=== PATIENT | female | born 2000 | race Caucasian/White ===

== ENCOUNTER 2018-01-26 12:43 | Emergency (ER) | payer OTHER, SELFPAY ==
[2018-01-26 12:44] VITALS: BP 117/75; PULSE 90; RESP 16; TEMP 37.1; O2SAT 99; BMI 21.3
--- NOTE | 2018-01-26 13:30 | CT_ITS ---
STUDY: CT ABDOMEN AND PELVIS WITH CONTRAST REASON FOR EXAM: Female, 17 years old. Blood in the stool and abdominal pain RADIATION DOSAGE (If Supplied By Facility): CTDIvol = ( 7.64 ) mGy, DLP = ( 254.90 ) mGycm TECHNIQUE: Transaxial images were obtained from the dome of the diaphragm to the symphysis pubis without oral contrast. 75 ml of Isovue 300 contrast was administered. Sagittal and coronal images were reconstructed. Individualized dose optimization techniques were used for this CT. COMPARISON: None. FINDINGS: No evidence for lung consolidation Liver and spleen are within normal limits. The pancreas appear unremarkable. Adrenal glands appear unremarkable. Gallbladder is within normal limits. Adrenal glands are within normal limits. Prominent bilateral renal collecting systems seen. The bowel gas pattern is nonobstructive. No definite evidence for acute appendicitis. However appendix is not definitively visualized Uterus appears slightly prominent. Trace amount of free fluid in the pelvis likely present. No evidence for acute lumbar spine fractures. The abdominal aorta is within normal limits. No retroperitoneal adenopathy. CT/Abdomen/Pelvis WITH Contrast IMPRESSION: No evidence for small bowel obstruction. No evidence for acute appendicitis Trace amount of free fluid in the pelvis was slightly prominent uterus. Prominent renal pelvis which can be assessed with sonography as clinically deemed essential. Electronically Signed: Rashard Couch, at 15:30 EST Tel , Service support ,
[2018-01-26] MEDS: 0.9% Normal Saline 1,000 ML 125 ML IV (13:53)
[2018-01-26 14:02] LABS: Absolute Lymphocyte Count 3.04 X10^3/ul (0.83-4.51); Absolute Neutrophil Count 4.9 X10^3/uL (2.0-7.7); Basophil# 0.03 X10^3/uL; Basophil% 0.3 % (0-1); Eosinophil# 0.07 X10^3/uL; Eosinophils% 0.8 % (0-5); Hematocrit 46.5 % (37-47); Hemoglobin 16.1 g/dl (12.0-15.0); Lymphocyte # 3.04 X10^3/ul (4.0); Lymphocyte % 35.2 % (19-41); Mean Corp Hgb Conc 34.6 g/gl (32-36); Mean Corpuscular Hgb 30.4 pg (27.0-32.0); Mean Corpuscular Volume 87.9 fL (81-99); Mean Platelet Vol. 8.9 fl (6.2-12.0); Monocyte# 0.55 X10^3/uL; Monocyte% 6.4 % (0-10); Neutrophil # 4.94 X10^3/uL (2.7-7.7); Neutrophil % 57.2 % (47-70); POSITIVE COUNT NO; POSITIVE DIFFERENTIAL NO; POSITIVE MORPHOLOGY NO; Platelet Count 323 K/mm3 (150-450); RBC Distribution Width CV 13.1 % (11.6-14.6); RBC Distribution Width SD 42.1 fl (35.1-43.9); Red Blood Count 5.29 M/mm3 (4.2-5.4); White Blood Count 8.6 K/mm3 (4.4-11.0)
[2018-01-26 14:12] LABS: Bacteria 0 SEEN /hpf (None Seen); Mucous, Urine 0 SEEN /hpf (<or=2+); Red Blood Cells-Urine 0 SEEN /hpf (0-5); White Blood Cells 0 SEEN /hpf (0-5)
[2018-01-26 14:14] LABS: Color, Urine Yellow (Yellow); Glucose, Dipstick Normal (Normal); Ketone-Dipstick Negative (Negative); Leukocyte Esterase-Dipstick Negative /ul (Negative); Nitrite-Dipstick Negative (Negative); Occult Blood-Urine Negative /ul (Negative); Protein-Dipstick Negative (Negative); Specific Gravity, Urine 1.005 (1.002-1.030); Urine Bilirubin Dipstick Negative (Negative); Urine Clarity Clear (Clear); Urine Urobilinogen Normal (Normal)
[2018-01-26 14:18] LABS: AST(SGOT) 22 U/L (15-37); Alanine Aminotransfer ALT/SGPT 28 U/L (13-56); Albumin, Serum 4.4 g/dL (3.2-5.0); Alkaline Phosphatase 63 U/L (45-117); Anion Gap 9 (5-15); BUN 7 mg/dL (7-18); Calcium,Total 9.6 mg/dL (8.5-10.1); Chloride 105 mmol/L (98-107); Creatinine, Serum 0.78 mg/dL (0.55-1.02); EST Glomerular Filtration Rate 100 mL/min (>60); Est Glom Filt Rate - Afr Amer 121 mL/min (>60); Estimated Creatinine Clearance 95.96 ml/min; Globulin 4.3 g/dL (2.2-4.2); Glucose 81 mg/dL (74-106); Potassium 3.6 mmol/L (3.5-5.1); Protein, Total 8.7 g/dL (6.4-8.2); Sodium Level 141 mmol/L (136-145)
[2018-01-26 14:22] LABS: Squamous Epithelial Cells - UA 0-5 SEEN /hpf (5-10)
[2018-01-26 14:24] LABS: Pregnancy, Serum, hCG Quali. NEGATIVE Negative (0-9 Nonpreg)
[2018-01-26 15:11] LABS: Lactic Acid 1.1 mmol/L (0.4-2.0)
[2018-01-26 15:22] VITALS: BP 121/74; PULSE 72; RESP 16; O2SAT 100
--- NOTE | 2018-01-26 15:49 | ED.VISSUMM ---
- ER Visit Summary Date of Service: 01/26/18 Chief Complaint: [Abdominal pain and rectal bleeding] History of Present Illness: The patient is a 17 F [presents to the emergency department with symptoms of abdominal pain that started yesterday. Patient states that she went into the restroom to have a bowel movement and felt very sweaty and felt like she might pass out so she laid herself on the floor and she is not sure if she passed out. Patient began feeling better therefore she was able to get up however an hour or so later patient started having abdominal cramping again and had several episodes of diarrhea. This morning patient woke up and she continues to have intermittent abdominal pain and cramping and had 2 episodes of small amount of bright red blood per rectum. Patient has had hemorrhoid before. She denies any fever. She denies any vomiting although she has had some mild nausea. Patient is currently on her menstrual period. She denies any urinary symptoms.] There is no family history of inflammatory bowel disease. Physical Examination: [HEENT-PERRLA, EOMI. Cranial nerves II through XII grossly intact. TMs clear. Mucous membranes moist. No adenopathy. Cardiovascular-regular rate and rhythm without murmur or ectopy Lungs-clear to auscultation, chest wall stable without crepitus or subcu emphysema Abdomen-normoactive bowel sounds, soft, nontender, no rebound or rigidity, no peritoneal signs. Rectal exam-no fissures or hemorrhoids noted. No masses noted in the rectal vault. Stool was brown however it was Hemoccult positive. Extremities-intact ?4, normal range of motion, normal pulses, atraumatic] Test Results: [CBC with differential obtained showed a white blood cell count of 8.6, hemoglobin 16, hematocrit 46, platelets 323. Chemistries were normal. Liver enzymes were normal. Urinalysis was normal. HCG was negative. CT scan of the abdomen pelvis with IV and p.o. contrast obtained showed no evidence of small bowel obstruction no evidence for acute appendicitis trace amount of free fluid in the pelvis was slightly prominent uterus, prominent renal pelvis which can be assessed with sonography as clinically deemed essential.] Emergency Department Course and Treatment: [And received normal saline while in the emergency department and did not require any pain medication. Patient has not had any more diarrhea and really does not have much in way of abdominal discomfort at this time. I discussed with family that cannot completely rule out inflammatory bowel disease such as Crohn's or loss of colitis and that if her symptoms persist she may require further evaluation with colonoscopy. 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 Patient advised to follow-up with gastroenterology on-call. Patient to return if worsening pain, fever, persistent bleeding, or condition should worsen in any way.] Impression: [Abdominal pain Lower GI bleed-stable] Vasovagal syncope This note was generated with FRUCT dictation software. It may contain incorrect words, spelling, and punctuation that were not noted in review of the chart prior to signing ED Disposition - Plan for ED Patient: Chief Complaint: GI Bleed Referrals: Duglas Nayak MD [Primary Care Provider] -
--- NOTE | 2018-01-26 15:54 | ED.DCSUM_ITS ---
- ER Visit Summary Date of Service: 01/26/18 Chief Complaint: [Abdominal pain and rectal bleeding] History of Present Illness: The patient is a 17 F [presents to the emergency department with symptoms of abdominal pain that started yesterday. Patient states that she went into the restroom to have a bowel movement and felt very sweaty and felt like she might pass out so she laid herself on the floor and she is not sure if she passed out. Patient began feeling better therefore she was able to get up however an hour or so later patient started having abdominal cramping again and had several episodes of diarrhea. This morning patient woke up and she continues to have intermittent abdominal pain and cramping and had 2 episodes of small amount of bright red blood per rectum. Patient has had hemorrhoid before. She denies any fever. She denies any vomiting although she has had some mild nausea. Patient is currently on her menstrual period. She denies any urinary symptoms.] There is no family history of inflammatory bowel disease. Physical Examination: [HEENT-PERRLA, EOMI. Cranial nerves II through XII grossly intact. TMs clear. Mucous membranes moist. No adenopathy. Cardiovascular-regular rate and rhythm without murmur or ectopy Lungs-clear to auscultation, chest wall stable without crepitus or subcu emphysema Abdomen-normoactive bowel sounds, soft, nontender, no rebound or rigidity, no peritoneal signs. Rectal exam-no fissures or hemorrhoids noted. No masses noted in the rectal vault. Stool was brown however it was Hemoccult positive. Extremities-intact ?4, normal range of motion, normal pulses, atraumatic] Test Results: [CBC with differential obtained showed a white blood cell count of 8.6, hemoglobin 16, hematocrit 46, platelets 323. Chemistries were normal. Liver enzymes were normal. Urinalysis was normal. HCG was negative. CT scan of the abdomen pelvis with IV and p.o. contrast obtained showed no evidence of small bowel obstruction no evidence for acute appendicitis trace amount of free fluid in the pelvis was slightly prominent uterus, prominent renal pelvis which can be assessed with sonography as clinically deemed essential.] Emergency Department Course and Treatment: [And received normal saline while in the emergency department and did not require any pain medication. Patient has not had any more diarrhea and really does not have much in way of abdominal discomfort at this time. I discussed with family that cannot completely rule out inflammatory bowel disease such as Crohn's or loss of colitis and that if her symptoms persist she may require further evaluation with colonoscopy. 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 Patient advised to follow -up with gastroenterology on-call. Patient to return if worsening pain, fever, persistent bleeding, or condition should worsen in any way.] Impression: [Abdominal pain Lower GI bleed-stable] Vasovagal syncope This note was generated with Snupps dictation software. It may contain incorrect words, spelling, and punctuation that were not noted in review of the chart prior to signing ED Disposition - Plan for ED Patient: Chief Complaint: GI Bleed Referrals: Duglas Nayak MD [Primary Care Provider] -
--- NOTE | 2018-01-26 15:54 | ED.DEP ---
ED Disposition - Plan for ED Patient: Chief Complaint: GI Bleed Instructions: ED Hematochezia Stable, ED Abdominal Pain Unkn Cause, ED Syncope Vasovagal Referrals: Duglas Nayak MD [Primary Care Provider] - Johnny Burton MD [STAFF PHYSICIAN] - 3-5 Days
== END 2018-01-26 16:06 | disposition home or self-care (01) ==
PROVIDERS: Emergency Provider Emergency Medicine; Family Provider Family Medicine; PCP Family Medicine
DX: K92.1 Melena (principal); R55 Syncope and collapse; R10.9 Unspecified abdominal pain
CPT/HCPCS: 74177; 80053; 81001; 82274; 83605; 84703; 85025; 96360; 96361; 99283; J7030; Q9967; A4216

== ENCOUNTER → 2019-06-06 | Outpatient (CLI) | payer SELFPAY ==
[2019-05-21 16:21] VITALS: BMI 21.2
== END | disposition home or self-care (01) ==
LOC: MFPLAB 13:36
PROVIDERS: Family Provider Family Medicine; PCP Family Medicine; Visit Provider Family Medicine
DX: R19.7 Diarrhea, unspecified (principal)
CPT/HCPCS: 87506

== ENCOUNTER 2019-06-07 18:40 | Emergency (ER) | payer OTHER, SELFPAY ==
[2019-05-21 16:21] VITALS: BMI 21.2
[2019-06-07 18:41] VITALS: BP 106/98; PULSE 105; RESP 18; TEMP 36.8; O2SAT 98; BMI 20.7
--- NOTE | 2019-06-07 19:09 | CT_ITS ---
STUDY: CT ABDOMEN AND PELVIS WITH CONTRAST REASON FOR EXAM: Female, 19 years old. Diarrhea. Bloody stools. RADIATION DOSAGE (If Supplied By Facility): CTDIvol = ( 9.76 ) mGy, DLP = ( 331.99 ) mGycm TECHNIQUE: Transaxial images were obtained from the dome of the diaphragm to the symphysis pubis without oral contrast. 100ML IV/Oral Isovue 300 was administered. Sagittal and coronal images were reconstructed. Individualized dose optimization techniques were used for this CT. COMPARISON: January 26, 2018. FINDINGS: Lung bases: No focal airspace opacity. Nonspecific left paraspinal soft tissue mass measuring 3.8 cm x 7.6 cm x 1.4 cm (axial image 20 series 2 and coronal image 61 series 601). Region of interest measures approximately 42 Hounsfield units. Heart: Unremarkable. Liver: Hepatomegaly measuring up to 20 cm. Gallbladder/biliary ducts: Unremarkable. Pancreas: Unremarkable. Spleen: Borderline splenomegaly measuring up to 12.7 cm. Adrenal glands: Unremarkable. Kidneys/ureters/bladder: Mild bilateral ureteral distention/extrarenal pelvis. Bilateral symmetric renal parenchymal contrast enhancement. Mildly distended urinary bladder without wall abnormality. Uterus/adnexa/prostate: Distended endometrial canal. Physiologic appearance of the adnexal regions. Large bowel/small bowel: Diffuse moderate/severe colonic wall thickening. No perforation. No pneumatosis. No obstruction. Appendix: No secondary signs of appendicitis. Appendix not visualized. Gastroesophageal junction/stomach: Unremarkable. Retroperitoneum/lymph nodes: No intra-abdominal free air. No ascites. [place] lymph nodes. Vascular: Normal. Osseous structures: No acute process. Subcutaneous/soft tissues: No acute process. CT/Abdomen/Pelvis WITH Contrast IMPRESSION: Acute pancolitis (exclude C. 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 : The above information has been verbally conveyed by Devonte Beltran DO to Demond Roberts/ [phone], on 06/07/2019 21:40:54 (ET). Electronically Signed: Devonte Beltran DO at 21:26 EDT Tel , Service support ,
[2019-06-07] MEDS: 0.9% Normal Saline 1,000 ML 1000 ML IV (19:20)
[2019-06-07 19:34] LABS: Absolute Lymphocyte Count 2.04 X10^3/ul (0.83-4.51); Absolute Neutrophil Count 1.5 X10^3/uL (2.0-7.7); Basophil# 0.04 X10^3/uL; Basophil% 0.8 % (0-1); Eosinophil# 0.09 X10^3/uL; Eosinophils% 1.9 % (0-5); Hematocrit 41.6 % (37-47); Hemoglobin 14.8 g/dl (12.0-15.0); Lymphocyte # 2.04 X10^3/ul (4.0); Mean Corp Hgb Conc 35.6 g/gl (32-36); Mean Corpuscular Hgb 29.5 pg (27.0-32.0); Mean Platelet Vol. 8.8 fl (6.2-12.0); Monocyte# 1.11 X10^3/uL; Monocyte% 23.4 % (0-10); Neutrophil # 1.45 X10^3/uL (2.7-7.7); Neutrophil % 30.7 % (47-70); Platelet Count 307 K/mm3 (150-450); RBC Distribution Width CV 12.8 % (11.6-14.6); RBC Distribution Width SD 38.5 fl (35.1-43.9); Red Blood Count 5.01 M/mm3 (4.2-5.4); White Blood Count 4.7 K/mm3 (4.4-11.0)
[2019-06-07 19:35] LABS: POSITIVE COUNT NO; POSITIVE DIFFERENTIAL NO; POSITIVE MORPHOLOGY NO
[2019-06-07 19:51] LABS: ALB/GLOB Ratio 0.8 RATIO (0.9-2.4); AST(SGOT) 15 U/L (15-37); Alanine Aminotransfer ALT/SGPT 14 U/L (13-56); Albumin, Serum 3.4 g/dL (3.2-5.0); Alkaline Phosphatase 60 U/L (45-117); Anion Gap 5 (5-15); BUN 6 mg/dL (7-18); BUN/Creat Ratio 7.3 RATIO (10-20); Calcium,Total 8.7 mg/dL (8.5-10.1); Chloride 106 mmol/L (98-107); Creatinine, Serum 0.82 mg/dL (0.55-1.02); EST Glomerular Filtration Rate 94 mL/min (>60); Est Glom Filt Rate - Afr Amer 113 mL/min (>60); Estimated Creatinine Clearance 89.77 ml/min; Glucose 128 mg/dL (74-106); Potassium 3.3 mmol/L (3.5-5.1); Protein, Total 7.4 g/dL (6.4-8.2); Sodium Level 139 mmol/L (136-145)
--- NOTE | 2019-06-07 20:03 | ED.VISSUMM ---
- ER Visit Summary Date of Service: 06/07/19 Chief Complaint: Bloody diarrhea History of Present Illness: The patient is a 19 F who presents the emergency department with bloody diarrhea. Patient states that she has had diarrhea for about 5 days total. On (3 days ago) she developed blood in the stool. She notes intermittent crampy abdominal pain. . She has had the symptoms on and off since 2018. She has a appointment at the end of May with Dr. Burton from gastroenterology. She notes that she has had 7 episodes of diarrhea on average per day. She denies any rectal pain. She denies any fevers. There is no familial history of ulcerative colitis Crohn's etc. She takes an oral control pill. She is a non-smoker. Mother states she did have a surgery when she was first born for a blockage in her abdomen but cannot tell me anything more about that. No recent antibiotics. She dropped a stool specimen offered her primary care physician's office. This was run for enteric pathogens and was negative. Mom denies a familial history of inflammatory bowel disease Physical Examination: Afebrile vital signs stable Gen: Well-nourished well-developed Head: Normocephalic atraumatic Eyes: Perrl EOMI ENT: TMs clear no rhinorrhea moist mucous membranes Neck: Supple no lymphadenopathy no JVD nontender CVS: Regular rate rhythm no murmurs normal S1-S2 Respiratory: No distress clear to auscultation bilaterally chest nontender Abdomen: Soft nontender nondistended normal bowel sounds no masses Back: Nontender Extremity: Nontender no edema Skin: Normal color no rash Neuro: alert orientated ?3 CN II-XII intact normal strength sensation reflexes gait cerebellar Psych: Normal affect normal mood Test Results: CBC was normal. Potassium 3.3. Glucose 128. Liver enzymes normal. Stool cultures were not ordered as they have already been performed. CT down pelvis obtained. Demonstrated pancolitis. Incidentally there is also a nonspecific left paraspinal soft tissue mass measuring 3.8 cm x 7.6 cm x 1.4 cm. This is undifferentiated and will require MRI follow-up Emergency Department Course and Treatment: First for the pancolitis I did speak with Dr. Burton who is happy to see the patient on Sunday (this is Sunday night). He recommends patient begin mesolamine 2.4 grams Daily as well as a brief course of Cipro and Flagyl for 5 days. Secondly for the soft tissue mass this was discussed with her primary care physician's on-call doctor Dr. Hobbs. They will help coordinate a follow-up MRI. Impression: 1. Pancolitis 2. Undifferentiated left paraspinal left posterior mediastinal soft tissue mass This note was generated with NextMedium dictation software. It may contain incorrect words, spelling, and punctuation that were not noted in review of the chart prior to signing ED Disposition - Plan for ED Patient: Disposition: Home or Assisted Living Instructions: Ulcerative Colitis Prescriptions: Ciprofloxacin [Cipro] 500 mg PO BID #10 tab Transmission Status: Pending to [facility] metroNIDAZOLE [Flagyl] 250 mg PO Q8H #15 tab Transmission Status: P[facility] to [facility] Mesalamine 2.4 gm PO DAILY #30 tablet.dr Transmission Status: Pending to [facility] Ondansetron [Zofran Odt] 4 mg PO Q6H PRN PRN #10 tab PRN Reason: Nausea Transmission Status: [facility] Referrals: Duglas Nayak MD [Primary Care Provider] - (call to help arrange MRI for the soft tissue mass) Johnny Burton MD [NON-STAFF] - (call Sunday morning and let them know you need to be seen on Sunday per Dr. Burton) Additional Instructions: Your prescriptions were transmitted to [facility] and should be available for pickup tomorrow
[2019-06-07 20:08] LABS: Internal QC Validated? YES +Cl - CLEAR BKGD; Pregnancy, Serum, hCG Quali. NEGATIVE Negative
[2019-06-07 21:56] VITALS: BP 111/65; PULSE 89; RESP 14; O2SAT 99
[2019-06-07] MEDS: Mesalamine 1.2 GM Tablet 2.4 GM PO (22:37)
[2019-06-07 22:38] VITALS: RESP 16
== END 2019-06-07 22:38 | disposition home or self-care (01) ==
PROVIDERS: Emergency Provider Emergency Medicine; Family Provider Family Medicine; PCP Family Medicine
DX: K51.00 Ulcerative (chronic) pancolitis without complications (principal); R22.2 Localized swelling, mass and lump, trunk
CPT/HCPCS: 74177; 80053; 84703; 85025; 96360; 96361; 99283; J7030; Q9967

== ENCOUNTER → 2019-06-24 | Outpatient (CLI) | payer OTHER, SELFPAY ==
[2019-06-07 18:41] VITALS: BMI 20.7
--- NOTE | 2019-06-24 13:00 | MRI_ITS ---
HISTORY: Mediastinal mass. Abnormal CT. Technique: Sagittal T2, coronal T1, coronal gradient, axial T1, axial T2, axial T2 weighted, coronal T1, and axial and coronal T1 post gadolinium fat-sat series were obtained. 10 series. [address] scan of the abdomen and pelvis most recently is June 07, 2019. Study before that is January 26, 2018. Thoracic spine x-rays are available from March 30, 2015. Findings: Within the posterior medial aspect of the left hemithorax is the mass that was discussed and demonstrated on the CT scans. This mass is isointense to spleen on gradient echo imaging, isointense to spleen on T2 weighted imaging. It is hypointense to spleen on T1 precontrast imaging. It is hypointense to spleen on T1 post gadolinium imaging. It is within the fat between the spine and the pleura. It extends within the paraspinal space below the diaphragm, adjacent to the left kidney and left adrenal gland. It abuts directly adjacent to the thoracic aorta. It does not demonstrate flow or enhancement like the thoracic aorta. I measure it to be 8 x 1.8 x 4.7 cm MRI/Chest W/WO Contrast IMPRESSION: 8 x 1.8 x 4.7 cm left paraspinal mass that is not increased in size since CT scan of January 26, 2018, and in retrospect, was likely present on March 30, 2015 x-ray. It is left lateral to the T10 and T11 vertebral bodies. There appears to be some of it which has either grown into or out of the left T11-T12 neural foramen. Persistence of this structure in over 4 years without significant growth is suggestive of benignity. Differential diagnosis includes neuroma, fibroma, and myxoma, due to growth within the left-sided T11-T12 neural foramen, this is likely a neuroma at 0320 Reported and signed by: Clinton Ramsay MD Electronically Signed: Clinton Ramsay MD at 3:19 EDT Tel , Service support ,
== END | disposition home or self-care (01) ==
LOC: MRI 12:33
PROVIDERS: Family Provider Family Medicine; PCP Family Medicine; Referring Provider Family Medicine; Visit Provider Family Medicine
DX: J98.59 Other diseases of mediastinum, not elsewhere classified (principal)
CPT/HCPCS: 71552; A9575

== ENCOUNTER → 2019-08-15 | Outpatient (CLI) | payer OTHER, SELFPAY ==
[2019-08-15 15:25] LABS: Hematocrit 40.7 % (37-47); Hemoglobin 13.2 g/dL (12.0-15.0); Mean Corp Hgb Conc 32.4 g/dL (32-36); Mean Corpuscular Volume 89.5 fL (81-99); Mean Platelet Vol. 9.7 fl (6.2-12.0); Platelet Count 301 K/mm3 (150-450); RBC Distribution Width CV 12.5 % (11.6-14.6); RBC Distribution Width SD 41.1 fl (35.1-43.9); Red Blood Count 4.55 M/mm3 (4.2-5.4)
[2019-08-15 15:36] LABS: Erythrocyte Sedimentation Rate 9 mm/hr (0-20)
[2019-08-19 16:46] LABS: Endomysial Antibody IgA Negative (Negative); Immunoglobulin A 87 mg/dL (87-352); t-Transglutaminase IgA <2 U/mL (0-3)
== END | disposition home or self-care (01) ==
LOC: MTLAB 13:37
PROVIDERS: Family Provider Family Medicine; PCP Family Medicine; Referring Provider Internal Medicine Gastroenterology; Visit Provider Internal Medicine Gastroenterology
DX: K51.90 Ulcerative colitis, unspecified, without complications (principal); R19.7 Diarrhea, unspecified
CPT/HCPCS: 36415; 82784; 83516; 85027; 85652; 86140; 86255

== ENCOUNTER → 2019-12-01 12:46 | Outpatient (CLI) | payer OTHER, SELFPAY ==
[2019-12-01 10:34] VITALS: BMI 20.9
[2019-12-01 15:12] LABS: Chlamydia Trachomatis by PCR Negative (Negative); Neisserai gonorrhoeae by PCR Negative (Negative); Probe Check PASS; Sample Adequacy Control PASS; Specimen Processing Control PASS
[2019-12-02 16:15] LABS: HPV Reflexed? NOT INDICATED
== END ==
PROVIDERS: Family Provider Family Medicine; PCP Family Medicine; Referring Provider Obstetrics & Gynecology; Visit Provider Obstetrics & Gynecology
DX: Z12.4 Encounter for screening for malignant neoplasm of cervix (principal); Z11.3 Encounter for screening for infections with a predominantly sexual mode of transmission
CPT/HCPCS: 87491; 87591; 88175; G0145

== ENCOUNTER → 2020-01-21 09:46 | Outpatient (CLI) | payer OTHER, SELFPAY ==
[2019-12-01 10:34] VITALS: BMI 20.9
[2020-01-21 12:20] LABS: Hematocrit 45.7 % (37-47); Mean Corp Hgb Conc 32.8 g/dL (32-36); Mean Corpuscular Hgb 28.7 pg (27.0-32.0); Mean Corpuscular Volume 87.5 fL (81-99); Mean Platelet Vol. 9.3 fl (6.2-12.0); Platelet Count 327 K/mm3 (150-450); RBC Distribution Width CV 12.5 % (11.6-14.6); Red Blood Count 5.22 M/mm3 (4.2-5.4); White Blood Count 4.8 K/mm3 (4.4-11.0)
[2020-01-21 13:00] LABS: CRP < 2.90 mg/L (0.0-3.0)
== END ==
PROVIDERS: PCP Family Medicine; Referring Provider Internal Medicine Gastroenterology; Visit Provider Internal Medicine Gastroenterology
DX: K52.9 Noninfective gastroenteritis and colitis, unspecified (principal)
CPT/HCPCS: 36415; 85027; 86140

== ENCOUNTER → 2020-04-26 15:50 | Outpatient (CLI) | payer OTHER, SELFPAY ==
[2019-12-01 10:34] VITALS: BMI 20.9
[2020-04-28 17:48] LABS: V-Zoster IgG (Immunity) 1746 index (Immune >165)
== END ==
PROVIDERS: PCP Family Medicine; Referring Provider Family Medicine; Visit Provider Family Medicine
DX: Z86.19 Personal history of other infectious and parasitic diseases (principal)
CPT/HCPCS: 36415; 86787

== ENCOUNTER → 2020-05-17 15:31 | Outpatient (CLI) | payer OTHER, SELFPAY ==
[2019-12-01 10:34] VITALS: BMI 20.9
--- NOTE | 2020-05-17 15:39 | MRI_ITS ---
STUDY: MRI LUMBAR SPINE WITH AND WITHOUT CONTRAST REASON FOR EXAM: Female, 20 years old. paraspinal mass -- recheck mass, no pain TECHNIQUE: Standardized fat and water weighted pulse sequences were obtained in the sagittal and axial planes. IV dotarem 10ml was administered for the contrast portion of the examination. COMPARISON: CT abdomen pelvis 06/07/2019 and 01/26/2018 FINDINGS: T12-L1: Normal endplates. Normal disc height, hydration and morphology. Normal bilateral facet joints. Normal central canal and bilateral lateral recesses. Normal bilateral intervertebral neural foramina. Normal lumbar lordosis. There is no substantial scoliosis. Normal conus medullaris that terminates at the L1-2 level. L1-2: Normal endplates. Normal disc height, hydration and morphology. Normal bilateral facet joints. Normal central canal and bilateral lateral recesses. Normal bilateral intervertebral neural foramina. L2-3: Normal endplates. Normal disc height, hydration and morphology. Normal bilateral facet joints. Normal central canal and bilateral lateral recesses. Normal bilateral intervertebral neural foramina. L3-4: Normal endplates. Normal disc height, hydration and morphology. Normal bilateral facet joints. Normal central canal and bilateral lateral recesses. Normal bilateral intervertebral neural foramina. L4-5: Normal endplates. Normal disc height, hydration and morphology. Normal bilateral facet joints. Normal central canal and bilateral lateral recesses. Normal bilateral intervertebral neural foramina. L5-S1: Normal endplates. Normal disc height, hydration and morphology. Normal bilateral facet joints. Normal central canal and bilateral lateral recesses. Normal bilateral intervertebral neural foramina. Normal visualized sacral ala. Incompletely imaged left-sided paraspinal mass at the lower thoracic levels, see separate thoracic spine MRI report for full details. Stable prominence of the right renal sinus. MRI/Spine Lumbar W/WO Contrast IMPRESSION: No evidence of lumbar spinal mass, lumbar paraspinal mass or abnormal enhancement. No evidence of significant disc disease or nerve root impingement. Incompletely imaged left-sided paraspinal mass at the lower thoracic levels, see separate thoracic spine MRI report for full details. Electronically Signed: Tai García MD at 20:24 EDT Tel , Service support ,
--- NOTE | 2020-05-17 15:39 | MRI_ITS ---
STUDY: MRI THORACIC SPINE WITH AND WITHOUT CONTRAST REASON FOR EXAM: Female, 20 years old. paraspinal mass -- recheck, no pain TECHNIQUE: IV 10ml dotarem was administered for the contrast portion of the examination. COMPARISON: CT abdomen pelvis 06/07/2019 and 01/26/2018 FINDINGS: Normal kyphosis of the thoracic spine. There is no substantial scoliosis. T1-2, T2-3, T3-4, T4-5, T5-6, T6-7, T7-8, T8-9, T9-10, T10-11, T11-12: Normal endplates. Normal disc hydration, heights and morphology of the corresponding intervertebral discs. Normal central canal and intervertebral neural foramina at the corresponding levels. Normal visualized thoracic cord. A lobulated T1 hypointense and T2 hyperintense mass is present in the left paraspinal region. It measures 5.4 cm craniocaudal by 3.6 cm anteroposterior by 2.0 cm transverse. It extends from the T9-10 level to the T11-12 level. The adjacent vertebral bodies and posterior ribs are intact. It does not extend into the adjacent neural foramina. It does not enhance after contrast administration. It has an overall nonaggressive MRI appearance. Overall, it is stable in size and extent compared to CT examinations dating back to 2018. MRI/Spine Thoracic W/WO Contrast IMPRESSION: Left paraspinal mass, stable in size and extent compared to CT examinations dating back to 2018. Overall nonaggressive MRI appearance. No evidence of neural foraminal extension. Differential includes extramedullary hematopoiesis and benign/indolent neoplasm (such as neurofibroma). Electronically Signed: aTi García MD at 20:51 EDT Tel , Service support ,
== END ==
PROVIDERS: PCP Family Medicine; Referring Provider Family Medicine; Visit Provider Family Medicine
DX: R22.2 Localized swelling, mass and lump, trunk (principal)
CPT/HCPCS: 72157; 72158; A9575

== ENCOUNTER → 2020-07-14 09:46 | Outpatient (CLI) | payer OTHER, SELFPAY ==
[2019-12-01 10:34] VITALS: BMI 20.9
[2020-07-14 12:46] LABS: Hematocrit 41.5 % (37-47); Hemoglobin 13.9 g/dL (12.0-15.0); Mean Corp Hgb Conc 33.5 g/dL (32-36); Mean Corpuscular Hgb 29.6 pg (27.0-32.0); Mean Corpuscular Volume 88.3 fL (81-99); Mean Platelet Vol. 9.5 fl (6.2-12.0); Platelet Count 323 K/mm3 (150-450); RBC Distribution Width CV 12.1 % (11.6-14.6); RBC Distribution Width SD 39.6 fl (35.1-43.9); White Blood Count 4.5 K/mm3 (4.4-11.0)
[2020-07-14 13:16] LABS: CRP < 2.90 mg/L (0.0-3.0)
== END ==
PROVIDERS: PCP Family Medicine; Referring Provider Internal Medicine Gastroenterology; Visit Provider Internal Medicine Gastroenterology
DX: K52.9 Noninfective gastroenteritis and colitis, unspecified (principal)
CPT/HCPCS: 36415; 85027; 86140

== ENCOUNTER → 2025-01-15 | Outpatient (CLI) | payer OTHER, SELFPAY ==
[2025-01-21 08:22] LABS: HPV Reflexed? NOT INDICATED
== END | disposition home or self-care (01) ==
LOC: LABSPEC 16:51
PROVIDERS: PCP Family Medicine; Referring Provider Nurse Practitioner Family; Visit Provider Nurse Practitioner Family
DX: Z12.4 Encounter for screening for malignant neoplasm of cervix (principal)
CPT/HCPCS: 88175; G0145

== ENCOUNTER → 2025-01-26 | Outpatient (CLI) | payer OTHER, SELFPAY ==
--- NOTE | 2025-01-26 14:22 | US_ITS ---
PROCEDURE: BREAST LIMITED UNILATERAL REASON FOR EXAM: Right breast pain. History of mother with breast cancer. COMPARISON: Comparison is made with prior mammogram done earlier in the day. TECHNIQUE: Targeted right breast ultrasound. FINDINGS: RIGHT: Ultrasound targeted to the upper half of the right breast. The breast tissue appears sonographically normal. No cyst, solid mass, or suspicious shadowing. US/Breast Limited Unilateral IMPRESSION: No sonographic abnormality is seen. BI-RADS 1: NEGATIVE. RECOMMEND ANNUAL MAMMOGRAPHIC SCREENING. Reading Location: [id number]
--- NOTE | 2025-01-26 14:22 | BI_ITS ---
PROCEDURE: DIAG MAMM W/CAD, BILAT REASON FOR EXAM: Two-month history of right breast pain. Mother with breast cancer. TECHNIQUE: Bilateral diagnostic digital breast tomosynthesis with 2D and 3D images. Computer aided detection. COMPARISON: Baseline examination. FINDINGS: The breasts are extremely dense which lowers the sensitivity of mammography. No focal abnormality is seen. BI/DIAG MAMM W/CAD, BILAT IMPRESSION: Unremarkable mammogram. With the patient's history of right breast pain, corre lation with ultrasound recommended. BI-RADS 0: INCOMPLETE - NEED ADDITIONAL IMAGING EVALUATION. Follow-up code: Ultrasound follow-up. Reading Location: [facility]
== END | disposition home or self-care (01) ==
PROVIDERS: PCP Family Medicine; Referring Provider Nurse Practitioner Family; Visit Provider Nurse Practitioner Family
DX: N64.4 Mastodynia (principal); Z80.3 Family history of malignant neoplasm of breast
CPT/HCPCS: 76642; 77062; 77066; G0279

== ENCOUNTER → 2025-08-13 | Outpatient (CLI) | payer OTHER, SELFPAY ==
[2025-08-13 17:39] LABS: hCG Titer Quant., Serum 88535 mIU/mL (<9 non-preg)
== END | disposition home or self-care (01) ==
LOC: LAB.FUTURE 15:21 → BWCLAB 16:09
PROVIDERS: PCP Family Medicine; Referring Provider Obstetrics & Gynecology; Visit Provider Obstetrics & Gynecology
DX: O36.80X0 Pregnancy with inconclusive fetal viability, not applicable or unspecified (principal); Z3A.00 Weeks of gestation of pregnancy not specified
CPT/HCPCS: 36415; 84702

== ENCOUNTER → 2025-08-15 | Outpatient (CLI) | payer OTHER, SELFPAY ==
--- OUTSIDE RECORDS SUMMARY | 2025-08-15 11:28 | XMS RPT_ITS | CCD ---
Author Organization [facility] Care Team Providers Care Crystallizer Operator Name Role Phone Shelley Whitaker MD Unavailable Herlinda Bloom DO Primary Care Provider [phone] HERLINDA BLOOM Primary Care Unavailable ERIN PRUITT Attending Unavaila ble LATIA SHIRLEY~[email or web address], LATIA SHIRLEY Attending Unavailable LATIA SHIRLEY~[id number], LATIA SHIRLEY Referring Unavailable HERLINDA BLOOM Primary Care Unavailable Herlinda Bloom DO Primary Care Provider BETTY RAY Referring Unavailable HERLINDA BLOOM Primary Care Unavailable HUI GOLDEN Attending Unavailable HUI GOLDEN Attending Unavailable CLEMENT SIMS Attending Unavailable Marilee Mejia MD Primary Care Provider Dr. Duglsa Welch MD Primary Care Provider Dr. Duglas Welch MD Referring Provider [phone] Rosemary Vale Attending Provider Rosemary Vale Referring Provider Marilee Mejia MD Primary Care Provider Marilee Mejia MD Unavailable [phone] MARILEE MEJIA Primary Care Unavailable RODNEY RICKS Attending Unavailable MARILEE MEJIA Attending Unavailable MARILEE MEJIA Primary Care Unavailable MARILEE MEJIA Attending Unavailable MARILEE MEJIA Primary Care Unavailable Dr. Marilee Mejia MD Primary Care Provider [phone] Dr. Marilee Mejia MD Referring Provider Julianne SPARKS, Dr. Rosa Attending Provider Rebekah, Duglas Primary Care Unavailable Rebekah, Duglas Referring Unavailable Rosemary Jovel Attending Unavailable Luis Rodgers Attending Unavailable Rebekah, Duglas Primary Care Unavailable Rebekah, Duglas Referring Unavailable Marcia Velasquez Attending Unavailable Marilee Mejia Primary Care Unavailable YeMarilee ziegler Referring Unavailable Shelley Whitaker Attending Unavailable Kalani, Marilee Mccloud Primary Care Unavailable Yeater, Marilee Mccloud Referring Unavailable Rebekah, Duglas Primary Care Unavailable Rosemary Jovel Attending Unavailable Rosemary Jovel Referring Unavailable Rebekah, Duglas Primary Care Unavailable Rosemary Jovel Referring Unavailable Rosemary Jvoel Attending Unavailable Isabella Holcomb Attending Unavailabl e Isabella Holcomb Referring Unavailabl e Marilee Mejia Primary Care Unavailable Medications Current Medications Medication Drug Class(es) Dates Sig (Normalized) Sig (Original) amoxicillin 875 mg / clavulanate 125 mg oral tablet (3 sources) Penicillin-class Antibacterial Start: 10-25-2022 End: 11-04-2022 take 1 tablet by mouth twice daily amoxicillin-clav ulanate (Augmentin) 875-125 mg per tablet Indications: Acute right otitis media , Acute non-recurrent frontal sinusitis Take 1 tablet by mouth 2 (two) times a day for 10 days. 20 each 0 10/25/2022 11/04/2022 Active Start: 04-05-2019 End: 04-12-2019 Amoxicillin-Pot Clavulanate (Augmentin) 875-125 mg tablet Discontinued 1 {tbl} PO TWICE A DAY 14 7 0 April 05, 2019 12:00am April 11, 2019 12:00am April 12, 2019 12:07am dextromethorphan hydrobromide 3 mg/ml / promethazine hydrochloride 1.25 mg/ml oral solution (1 source) Phenothiazine, Uncompetitive A-vfvjwi-T-aspartate Receptor Antagonist, Sigma-1 Agonist Start: 10-25-2022 End: 11-01-2022 take 5 mL by mouth four times daily for cough promethazine-dextromethorphan (PROMETHAZINE-DM) 6.25-15 mg/5 mL syrup Indications: Acute cough Take 5 mL by mouth 4 (four) times a day if needed for cough for up to 7 days. 118 mL 0 10/25/2022 11/01/2022 Active 168 hr ethinyl estradiol 0.73267 mg/hr / norelgestromin 0.81670 mg/hr transdermal system (10 sources) Progestin, Estrogen Start: 09-25-2022 apply 1 dose transd ermal route every week Xulane 150-35 mcg/24 hr APPLY 1 PATCH BY TRANSDERMAL ROUTE ONCE WEEKLY FOR 3 WEEKS. DO NOT APPLY PATCH ON 4TH WEEK 0 09/25/2022 Active Start: 12-01-2019 End: 10-03-2024 Norelgestromin-Ethin.Estradi ol (Xulane) 150-35 mcg/24 hr patch weekly Discontinued 1 NMA TD Q7D 3 November 22, 2021 2:00pm October 03, 2024 10:40am fluconazole 150 mg oral tablet (5 sources) Azole Antifungal Start: 04-06-2025 End: 04-06-2025 take 1 tablet by mouth once fluconazole (Diflucan) 150 mg tablet Indications: Vaginal yeast infection Take 1 tablet (150 mg) by mouth 1 time for 1 dose. 1 tablet 04/06/2025 04/06/2025 Active Start: 10-03-2024 End: 01-15-2025 Fluconazole 150 mg tablet Di scontinued 150 mg PO Every 3 Days 2 0 October 03, 2024 1:00am January 15, 2025 3:32pm march repeat second dose 72 hrs after first dose if symptoms persist Start: 04-14-2019 End: 04-15-2019 Fluconazole (Diflucan) 150 m g tablet Discontinued 150 mg PO Every 3 Days 2 0 April 14, 2019 12:00am April 14, 2019 12:00am April 15, 2019 12:06am mesalamine 1200 mg delayed release oral tablet (4 sources) Aminosalicylate Start: 09-08-2022 mesalamine (LI DONALD) 1.2 gram EC tablet Start: 06-07-2019 End: 10-03-2024 take 2 tablets by mouth once daily at mealtime Mesalamine 1.2 GM tablet,delayed release (DR/EC) Discontinued 2.4 g PO DAILY 30 June 07, 2019 12:00am October 03, 2024 10:40am take with food Multivit 79-Lclt-Pyfyro 1-Dha (Pnv-Dha) 27 mg iron-1 mg -300 mg capsule (1 source) Start: 08-07-2025 Multivit 43-Smge-Rhqcqc 1-Dha (Pnv-Dha) 27 mg iron-1 mg -300 mg capsule Active NMA PO August 07, 2025 12:00am Goulds (Nk) (1 source) Start: 01-15-2025 Goulds (Nk) Active January 15, 2025 1:00am penicillin v potassium 500 mg oral tablet (1 source) Start: 04-06-2025 End: 04-16-2025 take 1 tablet by mouth twice daily penicillin v potassium (Veetid) 500 mg tablet Indications: Sore throat , Strep pharyngitis Take 1 tablet (500 mg) by mouth 2 times a day for 10 days. 20 tablet 04/06/2025 04/16/2025 Active polymyxin b 91701 unt/ml / trimethoprim 1 mg/ml ophthalmic solution (1 source) Dihydrofolate Reductase Inhibitor Antibacterial, Polymyxin-class Antibacterial Start: 03-07-2025 End: 03-14-2025 take 1 drop(s) into the eye(s) four times daily polymyxin B sulf-trimethoprim (Polytrim) ophthalmic solution Indications: Acute conjunctivitis, unspecified acute conjunctivitis type, unspecified laterality Administer 1 drop into affected eye(s) 4 times a day for 7 days. 10 mL 03/07/2025 03/14/2025 Active Completed/Discontinued Medications Medication Drug Class(es) Dates Sig (Normalized) Sig (Original) cephalexin 500 mg oral capsule (4 sources) Cephalosporin Antibacterial Start: 10-03-2024 End: 10-13-2024 take 1 capsule by mouth every twelve hours Cephalexin 500 mg capsule Discontinued 500 mg PO Q12H 20 10 0 October 03, 2024 12:43pm October 12, 2024 1:00am October 13, 2024 1:09am ciclopirox 80 mg/ml topical solution (3 sources) Start: 10-10-2024 End: 04-09-2025 qmlzlmarvh-ijy-aep oz-wbhls-sar 8 % solution Apply small amount on the affected nail once a day 10/10/2024 04/06/2025 Discontinued (Med List Cleanup) ciprofloxacin 500 mg oral tablet (2 sources) Quinolone Antimicrobial Start: 06-07-2019 End: 12-01-2019 take 1 tablet by mouth twice daily Ciprofloxacin Hcl 500 MG tablet Discontinued 500 mg PO TWICE A DAY 10 June 07, 2019 12:00am December 01, 2019 11:35am Norethindrone-E.Est radiol-Iron (6 sources) Estrogen Start: 12-01-2019 End: 12-02-2020 Norethindrone-E.Es tradiol-Iron 1.5 mg-30 mcg (21)/75 mg (7) tablet Discontinued 1 {tbl} PO DAILY 22 11December 01, 2019 11:05am December 02, 2020 11:58am Start: 12-01-2019 End: 12-02-2020 Norethindrone-E.Estradiol-Ir on 1.5 mg-30 mcg (21)/75 mg (7) tablet Discontinued 1 {tbl} PO DAILY December 01, 2019 11:05am December 02, 2020 11:58am Start: 11-27-2018 End: 12-01-2019 Norethindrone-E.Estradiol-Ir on 1.5 mg-30 mcg (21)/75 mg (7) tablet Discontinued 1 {tbl} PO DAILY 22 11November 27, 2018 12:23pm December 01, 2019 11:05am Start: 11-27-2018 End: 12-01-2019 Norethindrone-E.Estradiol-Ir on 1.5 mg-30 mcg (21)/75 mg (7) tablet Discontinued 1 {tbl} PO DAILY November 27, 2018 12:23pm December 01, 2019 11:05am Start: 01-26-2018 End: 11-27-2018 Norethindrone-E.Estradiol-Ir on 1.5-30( tablet Discontinued 1 {tbl} PO DAILY January 26, 2018 1:00am November 27, 2018 12:24pm metroNIDAZOLE 250 mg oral tablet (2 sources) Nitroimidazole Antimicrobial Start: 06-07-2019 End: 12-01-2019 take 1 tablet by mouth every eight hours Metronidazole 250 MG tablet Discontinued 250 mg PO Q8H 15 June 07, 2019 12:00am December 01, 2019 11:35am NORETHIN ISIS-ETH ESTRAD-FE (2 sources) Start: 10-17-2017 take 1 tablet by mouth once daily 1.5-30 MG-MCG TABS One tablet by mouth daily NORETHIN ISIS-ETH ESTRAD-FE [phone] Shelley Whitaker MD ondansetron 4 mg disintegrating oral tablet (2 sources) Serotonin-3 Receptor Antagonist Start: 06-07-2019 End: 12-01-2019 take 1 tablet by mouth every six hours as needed for nausea Ondansetron 4 MG tablet Discontinued 4 mg PO EVERY 6 HOURS NEEDED as needed for Nausea June 07, 2019 10:11pm December 01, 2019 11:35am 1000 ml sodium chloride 9 mg/ml injection (1 source) Start: 11-28-2022 End: 12-02-2022 sodium chloride 0.9 % infusion Problems Active Problems Problem Classification Problem Date Documented Da te Episodic/Chronic Administrative/social admission (3 sources) First encounter by subject; Translations: [Persons encountering health services in other specified circumstances] 11-04-2024 Episodic Anxiety disorders (2 sources) Anxiety disorder, unspecified; Translations: [Anxiety disorder, unspecified] Onset: 05-21-2024 Chronic Fever of unknown origin (3 sources) Fever; Translations: [Fever, unspecified] Onset: 04-06-2025 04-06-2025 Episodic Inflammation; infection of eye (except that caused by tuberculosis or sexually transmitteddisease) (3 sources) Acute conjunctivitis; Translations: [Unspecified acute conjunctivitis, unspecified eye] Onset: 03-07-2025 03-07-2025 Episodic Mood disorders (2 sources) Dysthymia; Translations: [Dysthymic disorder] 12-02-2020 Chronic Comment on above: discussed counseling now and consider SSRI. Mycoses (1 source) Candidiasis of vagina; Translations: [Vaginal yeast infection] 04-06-2025 Episodic Noninfectious gastroenteritis (2 sources) Noninfective gastroenteritis and colitis, unspecified; Translations: [Colitis] Onset: 11-28-2022 Episodic Other complications of (1 source) Supervision of high risk , unspecified, unspecified trimester; Translations: [Supervision of high risk , unspecified, unspecified trimester] Onset: 08-07-2025 Episodic Other gastrointestinal disorders (1 source) 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; 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] Onset: 11-28-2022 Episodic Other gastrointestinal disorders (1 source) Radiation enterocolitis; 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] Episodic Other lower respiratory disease (1 source) Cough; Translations: [Acute cough] Episodic Other skin disorders (2 sources) Other nail disorders; Translations: [Other nail disorders] Onset: 10-10-2024 Episodic Other upper respiratory disease (1 source) Nasal congestion; Translations: [Nasal congestion] Episodic Other upper respiratory disease (1 source) Nasal congestion; Translations: [Nasal congestion] Onset: 10-25-2022 Episodic Other upper respiratory infections (8 sources) Acute frontal sinusitis; Translations: [Acute frontal sinusitis, unspecified] Onset: 10-25-2022 Episodic Otitis media and related conditions (2 sources) Acute right otitis media; Translations: [Otitis media, unspecified, right ear] Onset: 10-25-2022 Episodic Regional enteritis and ulcerative colitis (5 sources) Ulcerative colitis, unspecified, without complications; Translations: [Ulcerative colitis] Onset: 04-10-2023 11-04-2024 Chronic Unclassified (2 sources) Gynecologic examination ; Translations: [Encounter for gynecological examination (general) (routine) without abnormal findings] Onset: 10-17-2017 10-17-2017 Unclassified (1 source) Acute cough; Translations: [Acute cough] Onset: 10-25-2022 Unclassified (1 source) Acute candidiasis of vulva and vagina; Translations: [Acute candidiasis of vulva and vagina] Onset: 04-06-2025 Past or Other Problems Problem Classification Problem Date Documented Da te Episodic/Chronic Immunizations and screening for infectious disease (5 sources) Patient encounter status; Translations: [Encounter for screening for other viral diseases] Onset: 10-25-2022 Episodic Nonmalignant breast conditions (4 sources) Pain of breast; Translations: [Mastodynia] Onset: 02-05-2025 01-15-2025 Episodic Other screening for suspected conditions (not mental disorders or infectious disease) (1 source) Encounter for screening for malignant neoplasm of cervix; Translations: [Encounter for screening for malignant neoplasm of cervix] Onset: 03-27-2025 Episodic Residual codes; unclassified (2 sources) Personal history of other specified conditions; Translations: [Personal history of other specified conditions] Onset: 05-21-2024 Episodic Residual codes; unclassified (5 sources) Family history of breast cancer; Translations: [Family history of malignant neoplasm of breast] Onset: 11-04-2024 11-04-2024 Episodic Residual codes; unclassified (2 sources) Family history of malignant neoplasm of breast; Translations: [Family history of malignant neoplasm of breast] Onset: 11-04-2024 Episodic Skin and subcutaneous tissue infections (5 sources) Cellulitis; Translations: [Paronychia of toe of left foot] Onset: 10-24-2023 Episodic Spondylosis; intervertebral disc disorders; other back problems (4 sources) Cervicalgia; Translations: [Neck pain] Onset: 04-30-2024 Episodic Unclassified (1 source) Acute candidiasis of vulva and vagina; Translations: [Acute candidiasis of vulva and vagina] Onset: 04-06-2025 Results Test Name Value Interpretation Reference Range Facility hCG Titer Quant., Serumon HCG QUANT. 73576 mIU/mL High <9 non-preg [facility] Comment on above: Result Comment: Gest ational Age 0.2-1 Week: 5-50 mIU/mL 1-2 Weeks: 50-500 mIU/mL 2-3 Weeks: 100-5000 mIU/mL 3-4 Weeks: 500-10,000 mIU/mL 4-5 Weeks:1000-50,000 mIU/mL 5-6 Weeks: 10,000-100,000 mIU/mL 6-8 Weeks: 15,000-200,000 mIU/mL 2-3 Months:10,000-100,000 mIU/mL Performed By: #### L 700.8000 #### [facility] [address], [address] Office Visit Reporton 2024 Office Visit Report [facility] [address] [place] [address] OFFICE VISIT Date of Service: 08/07/25 MR#: [id number] Acct: [id number] Patient: MEGAN BEDOLLA Rep #: [id number] : 2000 Provider: Dr. Shelley castaneda MD Age/Sex: 25/F Location: [facility] Status: Signed Intake Vital Signs 01/15/25 14:29 08/07/25 14:27 Height 5 ft 3 in 5 ft 3 in Weight: 124 lb 123 lb 7 oz BMI 21.9 21.9 BP 110/74 104/64 Blood Pressure Location Rt brachial Position Sitting Intake Visit Reasons: PNOB Vitals Education Chief Complaint: mild nausea each afternoon. Trying OTC. 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 Required: No Is patient in pain?: No Allergies No Known Allergies Allergy (Verified 08/07/25 14:29) Medications ???Medication ???Instructions ???Recorded ???Confirmed ???Type multivitamin no.47-iron fum 27 cap PO 08/07/25 08/07/25 History mg-folate no.1 1 mg-dha 300 mg capsule (PNV-DHA) Is last menstrual period known: Yes Last menstrual period: 06/21/25 Post menopausal: No Patient : Yes Nurse's Note: Pt here for secondary amenorrhea. Vitals WNL. PNOB questions completed. Problem list, allergies, and medications updated. First trimester ACOG education completed. Assessment and Plan Assessment and Plan (1) FH: breast cancer in first degree relative: Status: Acute Comment: Mother Maternal grandmother (2) Anxiety: Status: Acute (3) : Status: Acute Comment: discussed NIPT Carrier testing -undecided (4) Supervision of high-risk : Status: Acute Comment: , JAREN 03/28/26, Miki Orders: Orders CBC W/Diff, Automated 08/07/25 O09.90 - Supervision of high risk , unspecified, unspecified trimester Type Screen 08/07/25 O09.90 - Supervision of high risk , unspecified, unspecified trimester Rubella IgG 08/07/25 O09.90 - Supervision of high risk , unspecified, unspecified trimester Hepatitis C Antibody 08/07/25 O09.90 - Supervision of high risk , unspecified, unspecified trimester Hepatitis B Surface Antigen 08/07/25 O09.90 - Supervision of high risk , unspecified, unspecified trimester Culture, Urine 08/07/25 O09.90 - Supervision of high risk , unspecified, unspecified trimester Syphilis Antibodies 08/07/25 O09.90 - Supervision of high risk , unspecified, unspecified trimester Chlamydia/GC GEOVANNA aptima 08/07/25 O09.90 - Supervision of high risk , unspecified, unspecified trimester HIV 08/07/25 O09.90 - Supervision of high risk , unspecified, unspecified trimester 08/08/25 0146 Date Shelley Whitaker MD Cosign Signature: Date (if applicable) CC: Normal [facility] POCT Influenza A/B manually resultedOrdered By: Veronica Camp on 04-06-2025 POC Rapid Influenza A Negative Negative [facility] POC Rapid Influenza B Negative Negative [facility] POCT Rapid Strep A manually resultedon 04-06-2025 Interpretation and review of laboratory results Abnormal [facility] Work Phone: POC Rapid Strep Positive Abnormal Negative [facility] Work Phone: [facility] Work Phone: Breast Limited Unilateralon 01-26-2025 Breast Limited Unilateral [facility] Imaging Services [address] [place] [id number] Breast Limited Unilateral MR#: [id number] Acct: [id number] Name: MEGAN BEDOLLA Rep #: [id number] : 2000 F 24 From: Markel wolff MD PCP: Dr. Duglas Welch MD Status: REG CLI Study: Breast Limited Unilateral Date of Exam: Exam# [id number] Ordering Dr: Rosemary Jovel PIE MAKER-C PROCEDURE: BREAST LIMITED UNILATERAL REASON FOR EXAM: Right breast pain. History of mother with breast cancer. COMPARISON: Comparison is made with prior mammogram done earlier in the day. TECHNIQUE: Targeted right breast ultrasound. FINDINGS: RIGHT: Ultrasound targeted to the upper half of the right breast. The breast tissue appears sonographically normal. No cyst, solid mass, or suspicious shadowing. US/Breast Limited Unilateral IMPRESSION: No sonographic abnormality is seen. BI-RADS 1: NEGATIVE. RECOMMEND ANNUAL MAMMOGRAPHIC SCREENING. Reading Location: [facility] CC: BALDOMERO Jovel; Dr. Duglas Welch MD Safety Lamp Keeper: Signed Normal [facility] Breast imaging reportOrdered By: Markel Nunes on 01-26-2025 Study report [facility] Imaging Services [address] [address] DIAG MAMM W/CAD, BILAT MR#: [id number] Acct: [id number] Name: MEGAN BEDOLLA Rep #: [id number] : 2000 F 24 From: Paulino Nunes MD PCP: Dr. Duglas Welch MD Status: REG CL I Study:DIAG MAMM W/CAD, BILAT Date of Exam: 01/26/25 Exam# [id number] Ordering Dr: Rosemary Jovel PROCEDURE: DIAG MAMM W/CAD, BILAT REASON FOR EXAM: Two-month history of right breast pain. Mother with breast cancer. TECHNIQUE: Bilateral diagnostic digital breast tomosynthesis with 2D and 3D images. Computer aided detection. COMPARISON: Baseline examination. FINDINGS: The breasts are extremely dense which lowers the sensitivity of mammography. No focal abnormality is seen. BI/DIAG MAMM W/CAD, BILAT IMPRESSION: Unremarkable mammogram. With the patient's history of right breast pain, correlation with ultrasound recommended. BI-RADS 0: INCOMPLETE - NEED ADDITIONAL IMAGING EVALUATION. Follow-up code: Ultrasound follow-up. Reading Location: [facility] CC: BALDOMERO Jovel; Dr. Duglas Welch MD ~ Safety Lamp Keeper: Signed [facility] DIAG MAMM W/CAD, BILATon DIAG MAMM W/CAD, BILAT [facility] Imaging Services [address] [place], [place] [address] DIAG MAMM W/CAD, BILAT MR#: [id number] Acct: [id number] Name: MEGAN BEDOLLA Rep #: [id number] : 2000 F 24 From: Markel wolff MD PCP: Dr. Duglas Welch MD Status: REG CLI Study: DIAG MAMM W/CAD, BILAT Date of Exam: 01/26/25 Exam# [id number] Ordering Dr: Rosemary Jovel PIE MAKERYvette PROCEDURE: DIAG MAMM W/CAD, BILAT REASON FOR EXAM: Two-month history of right breast pain. Mother with breast cancer. TECHNIQUE: Bilateral diagnostic digital breast tomosynthesis with 2D and 3D images. Computer aided detection. COMPARISON: Baseline examination. FINDINGS: The breasts are extremely dense which lowers the sensitivity of mammography. No focal abnormality is seen. BI/DIAG MAMM W/CAD, BILAT IMPRESSION: Unremarkable mammogram. With the patient's history of right breast pain, correlation with ultrasound recommended. BI-RADS 0: INCOMPLETE - NEED ADDITIONAL IMAGING EVALUATION. Follow-up code: Ultrasound follow-up. Reading Location: [id number] CC: PIE MAKER-Makayla Jovel; Dr. Duglas Welch MD Safety Lamp Keeper: Signed Normal [facility] PAP I-G w/rfx hrHPV-Aptimaon 01-20-2025 ADEQ Comment Normal . [facility] Comment on above: Order Comment: Speci men Comment: [id number] Specimen Comment: Source.............Cervix;Endocervix Specimen Comment: No. of containers..01 ThinPrep Vial Result Comment: Sati sfactory for evaluation. No endocervical component is identified. Performed By: #### L 7400.0353 #### [facility] [address] [place], [place], [address] COMM . Normal . [facility] Comment on above: Order Comment: Speci men Comment: [id number] Specimen Comment: Source.............Cervix;Endocervix Specimen Comment: No. of containers..01 ThinPrep Vial Performed By: #### L [id number] #### [facility] [address] [place], [address] COMMENT Comment Normal . [facility] Comment on above: Order Comment: Speci men Comment: [id number] Specimen Comment: Source.............Cervix;Endocervix Specimen Comment: No. of containers..01 ThinPrep Vial Result Comment: This liquid based ThinPrep(R) pap test was screened with the use of an image guided system. Performed By: #### L 7400.0353 #### [facility] [address] [place], [place], [address] DIAG Comment Normal . [facility] Comment on above: Order Comment: Speci men Comment: [id number] Specimen Comment: Source.............Cervix;Endocervix Specimen Comment: No. of containers..01 ThinPrep Vial Result Comment: NEGA TIVE FOR INTRAEPITHELIAL LESION OR MALIGNANCY. Performed By: #### L [id number] #### [facility] [address] [place], [place], [address] HPV RFLX Comment Normal . [facility] Comment on above: Order Comment: Speci men Comment: [id number] Specimen Comment: Source.............Cervix;Endocervix Specimen Comment: No. of containers..01 ThinPrep Vial Result Comment: The HPV DNA reflex criteria were not met with this specimen result therefore, no HPV testing was performed. Performed at: [address] [id number] Division Merchandise Manager: Jackie Koenig MD, Phone: [phone] Performed By: #### L [id number] #### [facility] [address] [place], [place], [id number] PAPSMR Comment Normal . [facility] Comment on above: Order Comment: Speci men Comment: [id number] Specimen Comment: Source.............Cervix;Endocervix Specimen Comment: No. of containers..01 ThinPrep Vial Result Comment: The Pap smear is a screening test designed to aid in the detection of premalignant and malignant conditions of the uterine cervix. It is not a diagnostic procedure and should not be used as the sole means of detecting cervical cancer. Both false-positive and false-negative reports do occur. Performed By: #### L [id number] #### [facility] [address] [place], [place], [id number] PERFORM Comment Normal . [facility] Comment on above: Order Comment: Speci men Comment: [id number] Specimen Comment: Source.............Cervix;Endocervix Specimen Comment: No. of containers..01 ThinPrep Vial Result Comment: Sabrina Haque Usability Specialist (ASCP) Performed By: #### L [id number] #### [facility] [address] [place], [place], [id number] Mortgage Processing Manager Cyto stain Nom (C vx/Vag) [ID]Ordered By: Rosemary Jovel on 01-15-2025 Pap Smear Performed By Comment . [facility] Comment on above: Nicol Haque Cyto technologist (ASCP) Cytology report Cyto stain D oc (Cvx/Vag)Ordered By: Rosemary Jovel on 01-15-2025 Thin Prep Pap Smear Comment . [facility] [place] Comment on above: The Pap smear is a s creening test designed to aid in thedetection of premalignant and malignant conditions of theuterine cervix. It is not a diagnostic procedure andshould not be used as the sole means of detecting cervicalcancer. Both false-positive and false-negative reports dooccur. Image-guided ThinPrep PapOrd ered By: Rosemary Jovel on 01-15-2025 Pap Smear Note Comment . [facility] Comment on above: This liquid based Th inPrep(R) pap test was screened withthe use of an image guided system. Image-guided liquid-based Pa pOrdered By: Rosemary Jovel on 01-15-2025 Pap Smear Diagnosis Comment . [facility] Comment on above: NEGATIVE FOR INTRAEP ITHELIAL LESION OR MALIGNANCY. Image-guided liquid-based ce rvical Pap w high-risk HPV+reflex to HPV 16+18Ordered By: Rosemary Jovel on 01-15-2025 Human Papillomavirus Screen Comment . [facility] Comment on above: The HPV DNA reflex c harlan were not met with this specimenresult therefore, no HPV testing was performed.Performed at: [facility] [address] [id number] Director: Jackie Koenig MD, Phone: [phone] Taxicab Dispatcher Office Visit Reporton 01-15-2025 Taxicab Dispatcher Office Visit Report [facility] [address], [address] [place] [address] OFFICE VISIT Date of Service: 01/15/25 MR#: [id number] Acct: [id number] Name: MEGAN BEDOLLA Rep #: [id number] : 2000 Provider: BALDOMERO Nunes Age/Sex: 24/F Location: [facility] Status: Signed Intake Vital Signs 10/03/24 09:39 01/15/25 14:29 Height 5 ft 3 in 5 ft 3 in Weight: 125 lb 124 lb BMI 22.1 21.9 BP 98/64 110/74 Blood Pressure Location Lt brachial Position Sitting Respiration 16 Pulse 66 Pulse Source Monitor Temp 98.6 F Pulse Oximetry (%) 98 Oxygen Delivery Method room air Intake Visit Reasons: Annual (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) 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 Required: No Is patient in pain?: No Allergies No Known Allergies Allergy (Verified 01/15/25 14:27) Medications ???Medication ???Instructions ???Recorded ???Confirmed ???Type NK 01/15/25 01/15/25 History Is last menstrual period known: Yes Last Menstrual Period: 12/28/24 Post menopausal: No Patient : No : No Control Method: none PFSH Medical History Gastrointestinal problem Ulcerative colitis Surgical History [place] teeth removed S/P colonoscopy Family History Mother CVA (cerebral vascular accident), Onset Age: 59 questionable Anxiety Arthritis Breast cancer, Onset Age: 53 Depression Diabetes Hypertension High cholesterol Father Hypertension Heart disease valve replaced Grandfather Alcoholism Cancer skin Arthritis Diabetes Grandmother Diabetes Myocardial infarction Grandfather Cancer Myocardial infarction Grandmother Myocardial infarction Aunt Breast cancer Social History Smoking Status: Never smoker alcohol intake: never substance use type: does not use caffeine: No what type of physical activity do you participate in: walking, running and weight training seatbelt use: always do you feel safe at home: Yes 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 She is here to re-establish care. She reports she feels her right breast feels different. Feels this is uncomfortable and then goes away. She has noticed this for approx a month or two. She does drink caffeine however not much. Last PAP: 2019; normal History of abnormal PAP: no Last mammogram: age 38 History of abnormal mammogram: n/a Colon cancer screening: colonoscopy--hx of UC. Other preventative health care screenings: Marilee Singer- PCP--Tai[facility]. Female Reproductive History Last Menstrual Period: 12/28/24 Cycle Length: 21-35 Bleeding Duration: 5 Questions: metorrhagia: No, sexually active: Yes (NFP/condoms), dyspareunia: No and PCB: No ROS Const Constitutional: Denies chills, fatigue, fever(s), headache(s) or weight loss Eyes Eyes: Denies change in vision ENT ENT: Denies dizziness Resp Resp: Denies cough GI GI: Denies abdominal pain, constipation or nausea : Denies difficulty voiding, dysuria, hematuria, nipple discharge, pelvic pain, prolapse symptoms, urinary incontinence, vaginal discharge, vaginal dryness, vaginal odor or vaginal pruritus Skin Skin/Breast: Reports as per HPI and breast pain; Denies alopecia, rash, breast mass, breast skin changes or nipple discharge Neuro Neuro: Denies dizziness Psych Psych: Denies anxiety or depression Endo Endo: Denies cold intolerance, excessive sweating or heat intolerance Exam Const General: cooperative, healthy appearing, comfortable, no acute distress, well groomed and well hydrated Nutritional Appearance: well nourished Orientation: alert, awake and oriented x3 HENMT Head: normal to inspection and normocephalic Ears: hearing grossly normal bilaterally and external ears normal Nose: external nose normal Face and sinus: normal facial exam Eyes General: appearance normal, both eyes and all related structures Neck Neck: normal visual inspection, full ROM and no lymphadenopathy Thyroid: thyroid normal Chest Chest palpation inspection: normal inspection of the chest Breast inspection: normal inspection of the breasts and normal inspection of the axillae Breast palpation: normal palpation of the breasts, normal palpation of the axillae, no axillary lymphadenopathy and other (dense tissue to right breast) Resp Effort Inspection: nor (more content not included)... Normal [facility] Service comment (Unsp spec) [Interp]Ordered By: Rosemary Jovel on 01-15-2025 Pap Smear Comment (3) . . [facility] Urgent Care Visit Reporton 1 12-03-2023 Urgent Care Visit Report [facility] [address], [address] [place] [address] OFFICE VISIT Date of Service: 10/03/24 MR#: [id number] Acct: [id number] Name: MEGAN BEDOLLA Rep #: [id number] : 2000 Provider: MEAGHAN Álvarez Age/Sex: 24/F Location: [facility] Status: Signed Intake Vital Signs 12/02/20 10:57 10/03/24 09:39 Height 5 ft 3 in 5 ft 3 in Weight: 125 lb BMI 22.1 BP 98/64 Blood Pressure Location Lt brachial Position Sitting Respiration 16 Pulse 66 Pulse Source Monitor Temp 98.6 F Temp Source Oral Pulse Oximetry (%) 98 Oxygen Delivery Method room air Intake Visit Reasons: CONCERN FOR INFECTED TOENAIL L FT Chief Complaint: LT TOENAIL INFECTED 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 Required: No Accompanied by: Self Is patient in pain?: Yes Allergies No Known Allergies Allergy (Verified 10/03/24 09:40) Medications ???Medication ???Instructions ???Recorded ???Confirmed ???Type cephalexin 500 mg capsule 500 mg PO Q12H 10 days #20 caps 10/03/24 10/03/24 Rx fluconazole 150 mg tablet 150 mg PO Q3D 2 doses #2 tabs 10/03/24 10/03/24 Rx PFSH Medical History (Updated 10/03/24 @ 09:46 by MEAGHAN Woods) Ulcerative colitis Surgical History S/P colonoscopy Family History Mother CVA (cerebral vascular accident), Onset Age: 59 questionable Other Cancer Heart disease Social History Smoking Status: Never smoker alcohol intake: never substance use type: does not use caffeine: No what type of physical activity do you participate in: walking seatbelt use: always do you feel safe at home: Yes 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 Patient states that she has been trying to deal with a fungal infection to the left toenail on the fourth toe however recently over the past 2 days has had increasing redness around the toe itself. She denies numbness, tingling or loss range of motion to the toe. No fever, chills, sweats. No other associated symptoms or alleviating/aggravat ing factors. ROS Const Constitutional: No other (6 system ROS completed with pertinent findings in HPI otherwise normal.) Exam Const General: cooperative and healthy appearing Skin General: no rashes or lesions noted Neuro General: patient alert Extrem Other: Thickening of the left fourth toenail along with surrounding erythema around the nail margin. Psych Appearance: grossly normal Mental Status: mental status grossly normal Coding Level of Care Code Off vis,new,level 3 Diagnoses Paronychia of toe of left foot L03.032 Assessment and Plan Assessment and Plan (1) Paronychia of toe of left foot: Status: Acute Medications: New cephalexin 500 mg PO Q12H 20 caps 0RF 10 days fluconazole may repeat second dose 72 hrs after first dose if symptoms persist 150 mg PO Q3D 2 tabs 0RF 2 doses Plan Keflex as prescribed today. Patient also given a prescription for Diflucan as she states that she has had issues with yeast infections after having antibiotics in the past. Encouraged to get plenty of rest, drink lots of clear liquids, and use Tylenol or Ibuprofen (unless contraindicated) for fever and comfort. Patient also educated on other symptomatic management techniques. To be seen in 7-10 days if no improvement; sooner if worsening of symptoms. Patient advised to follow-up with her PCP for further treatment of the toenail fungal infection. Patient verbalized understanding and agreement with all the above. 10/03/24 0948 Date Luis You Signature: Date (if applicable) CC: Normal [facility] CBC WITH AUTO DIFFERENTIALon 05-22-2024 BASO # 0.0 K CUMM Normal 0.0-0.2 [facility] Comment on above: Order Comment: Locat ion: Performed By: #### L [id number] #### CHANELL GOLDEN ([id number]) [facility] ([facility]) [address], [address] [place] [address] Basophils/100 WBC (Bld) 0.8 % Normal 0.0-3.0 [facility] Comment on above: Order Comment: Locat ion: Performed By: #### L [id number] #### CHANELL GOLDEN ([id number]) [facility] ([facility]) [address] [place] [address] Eosinophils (Bld) [#/Vol] 0.19 10*3/uL Normal 0.00-0.40 [facility] Comment on above: Order Comment: Locat ion: Performed By: #### L [id number] #### CHANELL GOLDEN ([id number]) [facility] ([facility]) [address] [place] [address] Eosinophils/100 WBC (Bld) 3.6 % Normal 0.0-7.0 [facility] Comment on above: Order Comment: Locat ion: Performed By: #### L [id number] #### CHANELL GOLDEN ([id number]) [facility] ([facility]) [address] [place] [address] Erythrocyte distribution width (RBC) [Ratio] 12.9 % Normal 11.5-15.5 [facility] Comment on above: Order Comment: Locat ion: Performed By: #### L [id number] #### CHANELL GOLDEN ([id number]) [facility] ([facility]) [address] [place] [address] Hematocrit (Bld) [Volume fraction] 40.6 % Normal 37.0-47.0 [facility] Comment on above: Order Comment: Locat ion: Performed By: #### L [id number] #### CHANELL GOLDEN ([id number]) [facility] ([facility]) [address] [place] [address] Hemoglobin (Bld) [Mass/Vol] 13.7 g/dL Normal 11.5-15.5 [facility] Comment on above: Order Comment: Locat ion: Performed By: #### L [id number] #### CHANELL GOLDEN ([id number]) [facility] ([facility]) [address] [place] [address] IMMGRN# 0.0 K CUMM Normal 0.0-0.3 [facility] Comment on above: Order Comment: Locat ion: Performed By: #### L [id number] #### CHANELL GOLDEN ([id number]) [facility] ([facility]) [address] [address] IMMGRN% 0.2 % Normal 0.0-3.0 [facility] Comment on above: Order Comment: Locat ion: Performed By: #### L [id number] #### CHANELL GOLDEN ([id number]) [facility] ([facility]) [address] [place] [address] LYMPH # 2.5 K CUMM Normal 0.7-4.5 [facility] Comment on above: Order Comment: Locat ion: Performed By: #### L [id number] #### CHANELL GOLDEN ([id number]) [facility] ([facility]) [address] [place] [address]047 Lymphocytes/100 WBC (Bld) 48.6 % High 14.0-46.0 [facility] Comment on above: Order Comment: Locat ion: Performed By: #### L [id number] #### CHANELL GOLDEN ([id number]) [facility] ([facility]) [address] [place] [address]116 MCH (RBC) [Entitic mass] 28.7 pg Normal 27.0-31.0 [facility] Comment on above: Order Comment: Locat ion: Performed By: #### L [id number] #### CHANELL GOLDEN ([id number]) [facility] ([facility]) [address] [place] [address]49 MCHC (RBC) [Mass/Vol] 33.7 g/dL Normal 32.0-36.0 [facility] Comment on above: Order Comment: Locat ion: Performed By: #### L [id number] #### CHANELL GOLDEN ([id number]) [facility] ([facility]) [address] [place] [address]376 MCV (RBC) [Entitic vol] 84.9 fL Normal 78.0-100.0 [facility] Comment on above: Order Comment: Locat ion: Performed By: #### L [id number] #### CHANELL GOLDEN ([id number]) [facility] ([facility]) [address] [address] MONO # 0.5 K CUMM Normal 0.1-1.0 [facility] Comment on above: Order Comment: Locat ion: Performed By: #### L [id number] #### CHANELL GOLDEN ([id number]) [facility] ([facility]) [address] [place] [address] Monocytes/100 WBC (Bld) 9.4 % Normal 4.0-13.0 [facility] Comment on above: Order Comment: Locat ion: Performed By: #### L [id number] #### CHANELL GOLDEN ([id number]) [facility] ([facility]) [address] [place] [address] DEXTER # 2.0 K CUMM Normal 1.8-7.8 [facility] Comment on above: Order Comment: Locat ion: Performed By: #### L [id number] #### CHANELL GOLDEN ([id number]) [facility] ([facility]) [address] [place] [address] Neutrophils/100 WBC (Bld) 37.4 % Low 40.0-74.0 [facility] Comment on above: Order Comment: Locat ion: Performed By: #### L [id number] #### CHANELL GOLDEN ([id number]) [facility] ([facility]) [address] [place] [address] Nucleated RBC/100 WBC (Bld) [Ratio] 0.0 % Normal 0.0-0.9 [facility] Comment on above: Order Comment: Locat ion: Performed By: #### L [id number] #### CHANELL GOLDEN ([id number]) [facility] ([facility]) [address] [place] [address]60 Platelet mean volume (Bld) [Entitic vol] 9.5 fL Normal 8.9-12.6 [facility] Comment on above: Order Comment: Locat ion: Performed By: #### L [id number] #### CHANELL GOLDEN ([id number]) [facility] ([facility]) [address], [address] [place] [address] PLT 292 K CUMM Normal 130-400 [facility] Comment on above: Order Comment: Locat ion: Performed By: #### L [id number] #### CHANELL GOLDEN ([id number]) [facility] ([facility]) [address] [place] [address] RBC 4.8 M CUMM Normal 3.8-5.1 [facility] Comment on above: Order Comment: Locat ion: Performed By: #### L [id number] #### CHANELL GOLDEN ([id number]) [facility] ([facility]) [address] [address] WBC 5.2 K CUMM Normal 3.8-10.6 [facility] Comment on above: Order Comment: Locat ion: Performed By: #### L [id number] #### CHANELL GOLDEN ([id number]) [facility] ([facility]) [address] [address] COMPREHENSIVE METABOLIC PANE Homero 05-22-2024 A/G RATIO 2.2 Normal [facility] Comment on above: Order Comment: Locat ion: Performed By: #### Miki [id number], [id number] #### CHANELL GOLDEN ([id number]) [facility] ([facility]) [address] [address] Albumin [Mass/Vol] 4.8 g/dL Normal 3.2-4.8 [facility] Comment on above: Order Comment: Locat ion: Performed By: #### L [id number], LAB18 #### CHANELL GOLDEN ([id number]) [facility] ([facility]) [address] [address] ALP [Catalytic activity/Vol] 59 U/L Normal 40-127 [facility] Comment on above: Order Comment: Locat ion: Performed By: #### Miki PORRAS, [id number] #### CHANELL GOLDEN ([id number]) [facility] ([facility]) [address] [address] ALT [Catalytic activity/Vol] 11 U/L Normal 10-49 [facility] Comment on above: Order Comment: Locat ion: Performed By: #### Miki PORRAS, [id number] #### CHANELL GOLDEN ([id number]) [facility] ([facility]) [address] [address] AST [Catalytic activity/Vol] 16 U/L Normal <=34 [facility] Comment on above: Order Comment: Locat ion: Performed By: #### Miki PORRAS, [id number] #### CHANELL GOLDEN ([id number]) [facility] ([facility]) [address] [place] [address] B/C RATIO 13.8 Normal 10.0-28.6 [facility] Comment on above: Order Comment: Locat ion: Performed By: #### Miki PORRAS, [id number] #### CHANELL GOLDEN ([id number]) [facility] ([facility]) [address] [place] [address] Bilirubin [Mass/Vol] 0.8 mg/dL Normal 0.3-1.2 [facility] Comment on above: Order Comment: Locat ion: Performed By: #### Miki PORRAS, [id number] #### CHANELL GOLDEN ([id number]) [facility] ([facility]) [address] [place] [address] Calcium [Mass/Vol] 9.3 mg/dL Normal 8.7-10.4 [facility] Comment on above: Order Comment: Locat ion: Performed By: #### Miki PORRAS, [id number] #### CHANELL GOLDEN ([id number]) [facility] ([facility]) [address] [place] [address] Chloride [Moles/Vol] 107 mmol/L Normal 98-107 [facility] Comment on above: Order Comment: Locat ion: Performed By: #### Miki PORRAS, [id number] #### CHANELL GOLDEN ([id number]) [facility] ([facility]) [address] [facility], [address] [address] CO2 [Moles/Vol] 28 mmol/L Normal 20-31 [facility] Comment on above: Order Comment: Locat ion: Performed By: #### Miki PORRAS, [id number] #### CHANELL GOLDEN ([id number]) [facility] ([facility]) [address] [facility], [address] [address] Creatinine [Mass/Vol] 0.8 mg/dL Normal 0.6-1.0 [facility] Comment on above: Order Comment: Locat ion: Performed By: #### Miki PORRAS, [id number] #### CHANELL GOLDEN ([id number]) [facility] ([facility]) [address] [address] GFR 104.4 mL/min/1.73m*2 Normal >=60.0 [facility] Comment on above: Order Comment: Locat ion: Performed By: #### Miki PORRAS, [id number] #### CHANELL GOLDEN ([id number]) [facility] ([facility]) [address] [address] Globulin (S) [Mass/Vol] 2.2 g/dL Normal [facility] Comment on above: Order Comment: Locat ion: Performed By: #### Miki PORRAS, [id number] #### CHANELL GOLDEN ([id number]) [facility] ([facility]) [address] [facility] [address] [place] [address] Glucose [Mass/Vol] 86 mg/dL Normal 74-106 [facility] Comment on above: Order Comment: Locat ion: Performed By: #### Miki PORRAS, [id number] #### CHANELL GOLDEN ([id number]) [facility] ([facility]) [address] [facility], [address] [address] Potassium [Moles/Vol] 4.1 mmol/L Normal 3.5-5.1 [facility] Comment on above: Order Comment: Locat ion: Performed By: #### Miki [id number], LAB18 #### CHANELL GOLDEN ([id number]) [facility] ([facility]) [address] [address] Protein [Mass/Vol] 7.0 g/dL Normal 5.7-8.2 [facility] Comment on above: Order Comment: Locat ion: Performed By: #### Miki [id number], LAB18 #### CHANELL GOLDEN ([id number]) [facility] ([facility]) [address] [address] Sodium [Moles/Vol] 139 mmol/L Normal 136-145 [facility] Comment on above: Order Comment: Locat ion: Performed By: #### Miki PORRAS, [id number] #### CHANELL GOLDEN ([id number]) [facility] ([facility]) [address] [address] Urea nitrogen [Mass/Vol] 11 mg/dL Normal 9-23 [facility] Comment on above: Order Comment: Locat ion: Performed By: #### Miki [id number], LAB18 #### CHANELL GOLDEN ([id number]) [facility] ([facility]) [address] [address] [id number] 05-22-2024 HbA1c (Bld) [Mass fraction] 5.3 % Normal 0.0-5.6 [facility] Comment on above: Order Comment: Locat ion: Result Comment: Refe rence Interval: Normal: below 5.7% Prediabetes: 5.7% to 6.4% Diabetes: 6.5% or above Performed By: #### L [id number] #### CHANELL GOLDEN ([id number]) [facility] ([facility]) [address] [place] [address] LIPID PANELon 05-22-2024 CHOL/HDL RATIO 2.4 Normal <=4.0 [facility] Comment on above: Order Comment: Locat ion: Performed By: #### L AB17, LAB18 #### CHANELL GOLDEN ([id number]) [facility] ([facility]) [address] [address] Cholesterol [Mass/Vol] 150 mg/dL Normal <=200 [facility] Comment on above: Order Comment: Locat ion: Result Comment: Low- risk levels (desirable) < 200 mg/dL Moderate-risk levels (borderline) 200 to 239 mg/dL High-risk levels > or = 240 mg/dL Performed By: #### L 17, LAB18 #### CHANELL GOLDEN ([id number]) [facility] ([facility]) [address] [place] [address] Cholesterol in HDL [Mass/Vol] 62 mg/dL Normal >60 [facility] Comment on above: Order Comment: Locat ion: Performed By: #### L CHIQUITA, LAB18 #### CHANELL GOLDEN ([id number]) [facility] ([facility]) [address] [place] [address] [id number] Cholesterol in LDL [Mass/Vol] 80 mg/dL Normal <=130 [facility] Comment on above: Order Comment: Locat ion: Performed By: #### L AB17, LAB18 #### CHANELL GOLDEN ([id number]) [facility] ([facility]) [address] [place] [address] [id number] NON-HDL CHOL 88 Normal [facility] Comment on above: Order Comment: Locat ion: Result Comment: LDL and Non-HDL goal dependent upon individual risk Performed By: #### L AB17, LAB18 #### CHANELL GOLDEN ([id number]) [facility] ([facility]) [address] [place] [address] 56323 Triglyceride [Mass/Vol] 42 mg/dL Normal <=150 [facility] Comment on above: Order Comment: Locat ion: Performed By: #### L AB17, LAB18 #### CHANELL GOLDEN ([id number]) [facility] ([facility]) [address] [place] [address] [address] [place] [address] VLDL-CALC 8.4 mg/dl Normal 0-30 [facility] Comment on above: Order Comment: Locat ion: Performed By: #### L 17, LAB18 #### CHANELL GOLDEN ([id number]) [facility] ([facility]) [address] [facility] [facility] [address] [address], [address] [place] [address] Pathology studyOrdered By: Shana Krueger on 11-30-2022 Citation [employer] (Reference lab test) r7ffqSQyZNEns8jlUVXa bGFuZzEwMzNcZnRuYmpc rQJdDGliduBaWGpvv4Wh J1YbPtLmGXsodjNmXMIi VugxaoioXSIfZZC9raOi TQOcUCrxTMHdIRhyQq0g iGDusJfqKeZtEVJcc6lh aeFPENcxYCRKGSy1n2yf JILuLlW2oFOxRWmhF3nb juHumBPjQ5Asy7ZhZQh5 lG20DCBddR8ilFBsNQns jvEwYxK7KRvvEDJaCmD8 VNPktTHqATDtK7viRVTe RWzbciToebG0YOUmeFBf LQY5IWAfWIYkB3FfEZ3e LAByrBHcQBi1x5arwUjp WOZwARR3i4goGMbchuCk AN2uux0mqTn5i2vctjQx MVMyJTDvnGYLKVGmR5Fk qPddDr0lfQi0aUyfSdyz HFL0Rhq8PY9yfk56rtc6 jOytYLCvmceqXuL8GSdx NOUfejkqOJy6IDmdYQUd iUK0MIXebDRtT1HaETOc TD1lham6COX3JCrvZZHc JxI7VATwfOEfOCJyjUvd JJpom247PSB9DkUbRW5t H4Aqw4S3hZ2dzLYwWBVy hQRqQaArZQQlbd4urIIo QPktl1FiDDV3ygT6jMAc hNBvKEQnOU89Sdlgf4Kg IgslXEN3XTIgeeUww1Ty p1krXvRnvgMvX3ngX1Lz ZHJoZWFkXHBnYnJkcmZv q3Rpz9QdyBMxyZq1f4xm EBGvVIWspLoby6bmFSE1 ZRXcN1F7gXIco7jeWHkk EMWjwKV4ezW7RUPjiGIr O8OmfH6sLEVuMX8kprc0 b3onPPO8ZEqjJGMcXmS4 yjI1ZHTxbSVpIRLmkFnk UJpmv320XIE3NfYaQSZg n3LeK0OkfTxbH02ufHve H12nTPEhjWwmyV0bgIcm nZ1dGzJrSwSiSUxuiAdx gRQdayzzDKhejkE0EQkk fqgyANDwBDkyG8vtNdAx INRojBbmCHpuc8SvYZAy DXQjUqeepwA4TZwfRS09 DFfsjLAlg7pxh6CpE5ji rEfusCK2VM8iBKPzSUAk JGcuk0HbsO6qhHQhXEKa laK2dLSbvL25SVRmyfU9 KBAkb98ct2RkdYowhwFb HLFgSAwnbsEkKIYqu5Tu KOGzNAQlIP73pbAwX7Kp iUGvRDHrxnVgWIhoaO8v f3i3GWnfIa4eMCdpq3Vf wDGyoMWlwAL7HIApn1Qr LnLuglAbaQDjflOcKA0w JBReeGEmioAqYKF7RYHi ZBHOJrDoSFLoo1SwLH4x HGQldIogEPQthD3gf3Yo TVUxb45gQSAaATRSDRKz aGFzIGRldGVybWluZWQg dGhhdCBzdWNoIGNsZWFy UV3bAVUhupQbkGKkd1Fq iYUunrUey4HyktMlVZKa ERI2PyBNlUVmQGN4PEC9 suExdjWmxKLoZFVbn0Jt X4lbmvtnMCbhfRXicW9n OJDfKM1aJDKld8FiSTAg p4JvDoXwvtYcOMFdLURk IYOepH78YGJ8lWseyWho tfFiBQ7wYGYhqwGjYMMa ZDZpyM9rSIcfmmVrSWRk nhT8p5U1QYojMYEwapIa TssfNDW4ksHfXJTzo3Cy OPehS5xdV34zjRkopOb2 uMD7CGG0sG6zQCAiYVDh IHRoZSBDbGluaWNhbCBM GYOflgO9j9M3UEfayCOx yzHtMK82FTWjEO3mkUHc cWSnr6ElRFw9GB5pHGdu LEUbyfBwa4udDRPzz3jl PGUrlz3ouzwknLZyopKk U6Mdylk1dF9vmKQtOCJx kb55XWG5BxJvJA0oiCra ZVNmHC8fMVNdH2rkbE1g inj0GdCxv0lzgROcKKFy eLBzCoXdKRWwRBJyf7fv ZGVmbGFuZzEwMzNcZnRu PhvurSEqWKFtEdQuc3mm k924dIRqd0pjNOSyJbY7 sHRcGDUlD43sCYZWW303 RZOwGTkvc8hhn4EhNMUm eAOth4E2ZPQKZZekNYZU SRl2bYfjY02gt0Y8Xeoj S5aiZQJpSJDaW6OzUP9t YRBkGpg2LWW1VFF4CWMq RYT6OPkiMXPsLXTxSou0 WEK9WCvkkaOeQUVgOLul ZWVuMTQzXGJsdWUxNDMg D9kiZEFuBYusZLHlLWnu jBEcEFZ0tOzva0O6sHLn aGVldHtcZjBcZnMyMiBO j2JtRKv7fPjkK6VhVSHm UhV5pRZaLGEvFJcpLLRf XKXzbgX8zN60PLzzhxB9 oJPce5Zmi13tf947iJ9f jWPvFOX0IFKjZCLtyAOu VZInIOO5KLEwkHAnC7lj HXKsOW9bwnpuDWetAGxf BNPkfZF0GIAbdXSvF1Sq SIOzRRfxTQTndak3XiMf Jy2cvLZdpUobTXxxl8my z0jwdHXaLuk8AMGmCwAy NbxjUJhbx5Ptl4lrRHJr dl1xPIS3yAYrfKiyj0O6 bGUxXGRudGJsbnNiZGJc GeH6KCynPX5rgt59PTEs FXA0ee6pfDUhjNlovbYy dDXgYWhlN6OaSPGgf296 ZFNpV8JiUTLrt0F8nfPw EnCkJZRptGT3myX8PJIu LVs5pNRbykB2akXyvTZt I5ewhF1fPGNkJW1jzwni i9pjKTyvUJjzUEUsaNP4 ikO2MDZibLRyV5VntG5g HMDuWAjtJHNvoyh1YpMm Nj6ecSJndFueCKjjDeyd YWdlXHBnbmNvbnRccGdu ZGVjXHBsYWluXHBsYWlu XGYwXGZzMjRccWxccGxh vR4rDmJrJfGpLRewOU0q TAXlL7dxaVZvFCKiRNKd Q8ydYnKjdW2xfTpxQDur ZjJcZnMxOFxpIFRoZSB0 INGlsscfJPflU63bxA7e OJ46CCjudhZwUALdc8Hw ZWQgYXQgVGhlIENvcmUg VOxbvQ2yn3n2NPzkOp7d AIAhkkshNVK3KyYeDE69 YmxldHJlZSBBdmUsIENv bHVtYnVzLCBPaGlvIDQz NrW7JjOKsCZzv9Azj8Qj UyRuoKLtdL1hjOafrtX1 KWHaxORcFi3rrTBoXqvi eWHgnrkwJRzoxqK4TYlh qeneTSBqMLyjP4fnDkMo JBNymPdnXAidj4GjINMy ZURqZ1ioclW1BXagrNLq SQBmjm42gK== [employer] Work Phone: Microscopic description [employer] (Endomyocardium) y6tskSSvRMWecWROPVAq XNElHQ3frJhhnWb9wFhk ZGHjjrT4tFPrUDcfg0mz NSX1d0nltlPOKhfxGPGe NS6nILmqYMCpCT3oSdVb XGRlZmYyXHBhcGVydzEy VwXkTBCvsIFetPC5LPYq GS7zuhhhNBzrTYyhZAOo wjU6LEPrfHHbE5FmJLOa AK9oyuktQNV3KPFPOedm Mm0qiVSlxMKSHptxQdZz ZmNoYXJzZXQwXGZuaWwg NGIfQIo3mF5Xj9ceBhvq F1evgsEeaYZlYb9qfBSK TUtwDZXLNHn9mZ3YULUw V9TcEA8Tm1tzNFLhmYJr RWY0NJhcg9onXNykNXZ6 ZUIzBKRcUFFiWU7XBqPi BNR8LtCsIMmiEdH8HVy4 EGWVKSOgCBWvPWt4PVh4 HNk7GNmgnzrjBAh5RLPd MDsdnBJmGD2szZsoDgyj vRqcw2LwcBBjCFKdRLjh aWQgNTEwMDIgXFxkYiBP PeDbAsHjBDK4YvY1QtIp LPe3UNsbU3TXIUXdKUL9 TmJ0NyhxWcC4ACv2ELYK Eq9gWsV7OrV4EDu9EED5 CAK6SsDbETAaRlRdGUSe NPQzDRcukFFqVF3waMxk MMTbMI9CPEOyIBnaOTLk QBLcGoRxRD4bVNOoA5Aa WK70GZV7qX8qINFZlBno fA8Ep2WbyzLjajbxN83w s08bQDSyqeUiuZPdaNjj mCEal0ouogHQQOyxgQNc MK4EKCCnvhFxTOdhwNsh aA6tOoHbDnTtMBisaOHj blxsdHJjaFxmczIyXGVw eFOWYRL6FU4xWMQRNgqj tLKeIMLvjOdtXEatwB2f FO6LLFJxIIIjLiYsDhZl ITi9KXZyhV0eWc9niMMo nF6hlQXyYAwdLLU0wRFu IHBhdGllbnQgbmFtZSBh cjLgTyErPL2gr21zX00q i59uZrjxhSS3BjPfohTe JGEpJOQluBPuR6qpZXha hTTlt2HykAIcCLIps3Q1 ZSBlbnRpcmVseSBzdWJt pIZ1YVOqwT1iFrboB7jn QTEuXHBhciANClxwYXIg GBszf9SoSOyqnOrhWDKo QvJaJJewryi7PM5DDSOs MFxlcGljWHNhMCANClxl kMvqSiNqjVExStE2PFWt aEZuRBO5US0iuBdoNWVz MOd9EAnmGLMoA4GpI4Vn XFxzZyBcXGlkIDUxMDAy ZExvVPQjK6COUVEbYUnj YqH3TdIdLVr7GGj5UE3F KuEdUMLuQsQuGgv9LsTq URc7FBagLW6WMCY3VIKu ENZ8KBSoHDVdJHLlTZk6 IDIgXFxzcyAzIFxcZmwg DFfbP83rx5FkPLGpXBXf A1csDiQdLYIXZsakJnap dzSwEQLqBZThElBiEg0t DOVqH4OkNJ07UJX2mQ2m BULDFMO0S2Jbo6IeaaZg jhypR58oq00dRNQeleBv cFMXDFgdwAZowUWyk2pr wagczXWuKF8YSGOxuuAm JOjsiLwfyU2mnKCcR2rm ZjFcZnMyMFxmMlxmczIy JDVykVZZCCW1OU2kTBTS ClxsdHJwYXJcbGluMFxy pC0gHAGcQpNdQTCsY5tk QgGhWF2IGEHjCHOuGpLl RrTkWPo0FDCzxO1iEf6q iZXrqN1ezIVlVZrePVH6 aXRoIHBhdGllbnQgbmFt GUDsobEbGnAfRF5dh15h LrldtYE1IYlmSjMsM91i m62zAIgfAIBpHW55GQXj SQJtR0SnW0Z1ZABjFpS4 UB3zePinn1OvVPMqjAzo ZNn8JKB0Zl3avHLjWOLt ysMuwO8szsUGLZ4nmTYh KA9JSFLiNWxyuSawOXWe AMSNAmmuQRXyINsbm4Yd MFxlcGljWHNhMzAgDQoo ldn8GQ5ASDPaMHcksTiy WHNhMCANClxlcGljTmVz xDBkTpE3UFNuhVGfMAL7 NL1pvQqmOZCeNWm2JZag KGQsC5MrH9LyUUbpMuRe XGlkIDUxMDAyIFxcZGIg G4YOKFUnBPcrZaG6FvFf EMr8PGu9US4GMnIoIXIl FaWxDvk8UEIrZKx2ICsk IH6OVAV5CFJfXVDjGTmi NNNdSSZiRKw0IIExBRtk lmAyCVwpNyjuNTtaH25d h2OcDIUgIJNmL1ktGvZb NSANClxmMlxmczIyXGYx EHEsQrVuLn6eOCSrG2Iv OI18GFN9qF1wLIEHBZO0 iX0iEQZkjaKjkYGmHNX9 TOhzPwpuwXG8IzrfpRMw UD9JAGTkcfRqJMohlMrf iT5emTRgA9qnHjVwNwWv MFxmMlxmczIyXGVwaWNO ZKQ4SI8lTBXLGtdxtZIw HEEumMdoJTdknI1iOSVb PvVzMPIkE8amXfGmBZ2S XGYxXGZzMjAgUmVjZWl2 EVXaxM1iPi5ptIDbuW2a uIGtFAjaEST2dDBnTBLy dGllbnQgbmFtZSBhbmQg TgHfRX5yy28qjdDsjFQb JVQsq9HsoMKplAMyBGNx YsFxT58xFXubstXtWLVe BR1hVKDpsgO2uUYblZWv LO87qMWroXkjy5DceXi4 dHAeQZunEKJtx3ZwUCDg WatdAHSuBLnuh5RzPXAh dRYPk2RlNB2JOCOhumFO SmerTAApXQNfoFPCv2Xm JPZXNvd1vZvuCGuhu7Ba BQRhtLSJa7EiVA0ILFJx xXNAOOX6KS9sHIwhPOPw L0XmF4XdlkJ8j5yegRjl k7HncHRxSH9szZFpPB5D XGYyXGZzMjIgDQp9 [employer] Work Phone: Pathology report final diagnosis Narrative i5qgdXDeENIjbLYgKTWe I7spwuSbLLRaeAQwJ0Gr mgacPKuvAA6wSO5jqUic aCVgdXEiNMEjMrYqm4zc z327cNFmi5msRJBByxzo zUy6oPnfJ82vb6H8Mzps B5rfSWPtOWzaQPSeESkr aJByIRe4HXHkuACvovGz TxFbRERaqLOzeON6INTj SU6htwspBUqaIJbiHMZw ufS6PQYlfGBkT7RlFTMq BZ7fazslSPI5RSosWWTd IOO9JzWjDIPbx5Ssvms0 SiJxbJw5i8hyBPYvYUHe kFokt5qgXAY5XYLkoHNn L9jlfU0lBHFuMO4unvvl x3qkABwmPDpzSQLowAF5 daM7QMRjgCEoJ7OdzR7n NDQwXHBhcmRcdHgxMjI0 MFxwbGFpblxjZjEgIFxi ASXrOWNXLH8pu17fbfwz dGNgP31gs15mMCKil5Ue eTpccGFyIFVucmVtYXJr AYTnSBUht6zbkyqmBS71 I55zLT1oqQQtFA3fP2X7 aXZlIGZvciBkeXNwbGFz iXPyTPZjtduoDVPnSt0s EZInidKbqFYvODO7BYAl lR3fGBCsmL0sr4l2IODm xkOWfgPobHUxb3FdfAOe R44kb54kFdMrcJZdy1Zh RXMrumVTWGymzTm3TQQh a3RlXUrstUrva0gsNjrx AVYwtKVlHLRrKXJMSK7c t58ddvXlpRNzJVPia5Vu eTpccGFyIFVucmVtYXJr EBRfZTZcb3tenwicOF26 I95lGK4nmFFwXK2vW2N6 aXZlIGZvciBkeXNwbGFz aWEuXHBhcn0= [employer] Work Phone: [employer] Phone: COLONOSCOPYon 11-28-2022 Colonoscopy [facility] Patient Name: Megan Fuentes Procedure Date: 11/28/2022 3:02 PM Date of : 2000 Age: 22 Gender: Female Procedure: Colonoscopy Indications: Follow-up of ulcerative colitis Patient Profile: This is a 22 year old female. Refer to note in patient chart for documentation of history and physical. Last Colonoscopy: 3 years ago. Providers: SHIRLEY JEFFERY MD, SARTHAK PAVON MD Referring MD: Herlinda Bloom Medicines: Monitored Anesthesia Care Moderate Sedation: N/A Complications: No immediate complications. Estimated blood loss: Minimal. Procedure: Pre-Anesthesia Assessment: - Prior to the procedure, a History and Physical was performed, and patient medications and allergies were reviewed. The patient's tolerance of previous anesthesia was also reviewed. The risks and benefits of the procedure and the sedation options and risks were discussed with the patient. All questions were answered, and informed consent was obtained. Prior Anticoagulants: The patient has taken no anticoagulant or antiplatelet agents. ASA Grade Assessment: II - A patient with mild systemic disease. After reviewing the risks and benefits, the patient was deemed in satisfactory condition to undergo the procedure. After I obtained informed consent, the scope was passed under direct vision. Throughout the procedure, the patient's blood pressure, pulse, and oxygen saturations were monitored continuously. The PCF-190L - [id number] Colonoscope, Pediatric slim was introduced through the anus and advanced to the terminal ileum. The colonoscopy was performed without difficulty. The patient tolerated the procedure well. The quality of the bowel preparation was evaluated using the BBPS ([place] Bowel Preparation Scale) with scores of: Right Colon = 3, Transverse Colon = 3 and Left Colon = 3 (entire mucosa seen well with no residual staining, small fragments of stool or opaque liquid). The total BBPS score equals 9. The quality of the bowel preparation was excellent. The terminal ileum, ileocecal valve, appendiceal orifice, and rectum were photographed. Findings: The perianal and digital rectal examinations were normal. The colon (entire examined portion) appeared normal. Internal hemorrhoids were found during retroflexion. The hemorrhoids were small. The terminal ileum appeared normal. Random biopsies were obtained with cold forceps for ulcerative colitis surveillance randomly right colon, left colon, and rectum. The pathology specimen was placed into Bottle Numbers 1, 2, and 3; respectively. Estimated blood loss was minimal. Procedure Code(s): --- Professional --- 55277, Colonoscopy, flexible; with biopsy, single or multiple Diagnosis Code(s): --- Professional --- K51.90, Ulcerative colitis, unspecified, without complications CPT copyright 2020 [employer]. All rights reserved. The codes documented in this report are preliminary and upon medical biller coder review may be revised to meet current compliance requirements. MD SHILREY Ervin MD 11/28/2022 3:57:45 PM This report has been signed electronically. Scope Withdrawal Time 0 hours 8 minutes 2 seconds Estimated Blood Loss: Estimated blood loss was minimal. Number of Addenda: 0 Note Initiated On: 11/28/2022 3:02 PM Total Procedure Duration Time 0 hours 20 minutes 46 seconds [address] [place] [address] IMPRESSION: - The examined portion of the ileum was normal. - The entire examined colon is normal. - Internal hemorrhoids. - Random biopsies were obtained right colon, left colon, and rectum. Recommendation: - Written discharge instructions were provided to the patient. - Resume previous diet. - Continue present medications. - Await pathology results. - Repeat colonoscopy after studies are complete for surveillance based on pathology results. - Return to GI clinic as previously scheduled. Normal [facility] COLONOSCOPY Anesthesia - MAC ; [facility] ENDOSCOPYon 11-28-2022 - The examined portion of the ileum was normal. - The entire examined colon is normal. - Holloway Score 0 - Internal hemorrhoids. - Random biopsies were obtained right colon, left colon, and rectum. Recommendation: - Written discharge instructions were provided to the patient. - Resume previous diet. - Continue present medications. - Await pathology results. - Repeat colonoscopy after studies are complete for surveillance based on pathology results. - Return to GI clinic as previously scheduled. [facility] GI Patient Name: Megan Fuentes Procedure Date: 11/28/2022 3:02 PM Date of : 2000 Age: 22 Gender: Female Procedure: Colonoscopy Indications: Follow-up of ulcerative colitis Patient Profile: This is a 22 year old female. Refer to note in patient chart for documentation of history and physical. Last Colonoscopy: 3 years ago. Providers: SHIRLEY JEFFERY MD, SARTHAK PAVON MD Referring MD: Herlinda Bloom Medicines: Monitored Anesthesia Care Moderate Sedation: N/A Complications: No immediate complications. Estimated blood loss: Minimal. Procedure: Pre-Anesthesia Assessment: - Prior to the procedure, a History and Physical was performed, and patient medications and allergies were reviewed. The patient's tolerance of previous anesthesia was also reviewed. The risks and benefits of the procedure and the sedation options and risks were discussed with the patient. All questions were answered, and informed consent was obtained. Prior Anticoagulants: The patient has taken no anticoagulant or antiplatelet agents. ASA Grade Assessment: II - A patient with mild systemic disease. After reviewing the risks and benefits, the patient was deemed in satisfactory condition to undergo the procedure. After I obtained informed consent, the scope was passed under direct vision. Throughout the procedure, the patient's blood pressure, pulse, and oxygen saturations were monitored continuously. The PCF-190L - [id number] Colonoscope, Pediatric slim was introduced through the anus and advanced to the terminal ileum. The colonoscopy was performed without difficulty. The patient tolerated the procedure well. The quality of the bowel preparation was evaluated using the BBPS ([place] Bowel Preparation Scale) with scores of: Right Colon = 3, Transverse Colon = 3 and Left Colon = 3 (entire mucosa seen well with no residual staining, small fragments of stool or opaque liquid). The total BBPS score equals 9. The quality of the bowel preparation was excellent. The terminal ileum, ileocecal valve, appendiceal orifice, and rectum were photographed. Findings: The perianal and digital rectal examinations were normal. The colon (entire examined portion) appeared normal. Internal hemorrhoids were found during retroflexion. The hemorrhoids were small. The terminal ileum appeared normal. Random biopsies were obtained with cold forceps for ulcerative colitis surveillance randomly right colon, left colon, and rectum. The pathology specimen was placed into Bottle Numbers 1, 2, and 3; respectively. Estimated blood loss was minimal. Procedure Code(s): --- Professional --- 04218, Colonoscopy, flexible; with biopsy, single or multiple Diagnosis Code(s): --- Professional --- K51.90, Ulcerative colitis, unspecified, without complications CPT copyright 2020 [employer]. All rights reserved. The codes documented in this report are preliminary and upon medical biller coder review may be revised to meet current compliance requirements. MD SHIRLEY Ervin MD 11/28/2022 3:57:45 PM This report has been signed electronically. Scope Withdrawal Time 0 hours 8 minutes 2 seconds Estimated Blood Loss: Estimated blood loss was minimal. Number of Addenda: 0 Note Initiated On: 11/28/2022 3:02 PM Total Procedure Duration Time 0 hours 20 minutes 46 seconds [address], [place] [id number] [place] [address] Shirley Jeffery MD - 11/28/2022 [facility] GI Patient Name: Megan Fuentes Procedure Date: 11/28/2022 3:02 PM Date of : 2000 Age: 22 Gender: Female Procedure: Colonoscopy Indications: Follow-up of ulcerative colitis Patient Profile: This is a 22 year old female. Refer to note in patient chart for documentation of history and physical. Last Colonoscopy: 3 years ago. Providers: SHIRLEY JEFFERY MD, SARTHAK PAVON MD Referring MD: Herlinda Bloom Medicines: Monitored Anesthesia Care Moderate Sedation: N/A Complications: No immediate complications. Estimated blood loss: Minimal. Procedure: Pre-Anesthesia Assessment: - Prior to the procedure, a History and Physical was performed, and patient medications and allergies were reviewed. The patient's tolerance of previous anesthesia was also reviewed. The risks and benefits of the procedure and the sedation options and risks were discussed with the patient. All questions were answered, and informed consent was obtained. Prior Anticoagulants: The patient has taken no anticoagulant or antiplatelet agents. ASA Grade Assessment: II - A patient with mild systemic disease. After reviewing the risks and benefits, the patient was deemed in satisfactory condition to undergo the procedure. After I obtained informed consent, the scope was passed under direct vision. Throughout the procedure, the patient's blood pressure, pulse, and oxygen saturations were monitored continuously. The PCF-190L - [id number] Colonoscope, Pediatric slim was introduced through the anus and advanced to the terminal ileum. The colonoscopy was performed without difficulty. The patient tolerated the procedure well. The quality of the bowel preparation was evaluated using the BBPS ([place] Bowel Preparation Scale) with scores of: Right Colon = 3, Transverse Colon = 3 and Left Colon = 3 (entire mucosa seen well with no residual staining, small fragments of stool or opaque liquid). The total BBPS score equals 9. The quality of the bowel preparation was excellent. The terminal ileum, ileocecal valve, appendiceal orifice, and rectum were photographed. Findings: The perianal and digital rectal examinations were normal. The colon (entire examined portion) appeared normal. Internal hemorrhoids were found during retroflexion. The hemorrhoids were small. The terminal ileum appeared normal. Random biopsies were obtained with cold forceps for ulcerative colitis surveillance randomly right colon, left colon, and rectum. The pathology specimen was placed into Bottle Numbers 1, 2, and 3; respectively. Estimated blood loss was minimal. Procedure Code(s): --- Professional --- 32865, Colonoscopy, flexible; with biopsy, single or multiple Diagnosis Code(s): --- Professional --- K51.90, Ulcerative colitis, unspecified, without complications CPT copyright 2020 [employer]. All rights reserved. The codes documented in this report are preliminary and upon medical biller coder review may be revised to meet current compliance requirements. MD SHIRLEY Ervin MD 11/28/2022 3:57:45 PM This report has been signed electronically. Scope Withdrawal Time 0 hours 8 minutes 2 seconds Estimated Blood Loss: Estimated blood loss was minimal. Number of Addenda: 0 Note Initiated On: 11/28/2022 3:02 PM Total Procedure Duration Time 0 hours 20 minutes [address] [place] [address] IMPRESSION: - The examined portion of the ileum was normal. - The entire examined colon is normal. - Holloway Score 0 - Internal hemorrhoids. - Random biopsies were obtained right colon, left colon, and rectum. Recommendation: - Written discharge instructions were provided to the patient. - Resume previous diet. - Continue present medications. - Await pathology results. - Repeat colonoscopy after studies are complete for surveillance based on pathology results. - Return to GI clinic as previously scheduled. [facility] Radiology Study observation (narrative) [employer] FLUAV+FLUBV Ag Ql (Unsp spec )on 10-25-2022 Internal Control Pass Yes Yes [employer] Interpretation and review of laboratory results Normal [facility] Rapid Influenza A AGN POC Negative Negative [employer] Rapid Influenza B AGN POC Negative Negative [facility] Bioplex HIV 1+2 Antigen and Antibodies, w/ Reflexeson 12-23-2021 HIV 1+2 Antigen and Antibodies Non-Reactive Normal Non-Reactive [facility] Comment on above: Order Comment: Items in this order include: Comprehensive Metabolic Panel, Lipid Panel, Bioplex HIV 1+2 Antigen and Antibodies, w/ Reflexes, CBC with differential, Testing Performed By: [facility] [address] [place] [address] CLIA#:[id number] [address] Chanell Golden, Division Merchandise Manager Performed By: #### C 47, C215, C8, C4891 #### [facility] [address] [place] [address] [place] [address] HIV-1 Antibody Non-Reactive Normal Non-Reactive [facility] Comment on above: Order Comment: Items in this order include: Comprehensive Metabolic Panel, Lipid Panel, Bioplex HIV 1+2 Antigen and Antibodies, w/ Reflexes, CBC with differential, Testing Performed By: [facility] [address] [place] [address] CLIA#:[id number] Dr. Chanell Golden, Division Merchandise Manager Performed By: #### C 47, C215, C8, C4891 #### [facility] [address] [place] [address] [place] [address] HIV-1 p24 Antigen Non-Reactive Normal Non-Reactive [facility] Comment on above: Order Comment: Items in this order include: Comprehensive Metabolic Panel, Lipid Panel, Bioplex HIV 1+2 Antigen and Antibodies, w/ Reflexes, CBC with differential, Testing Performed By: [facility] [address] [place] [address] CLIA#:[id number] [address] Chanell Golden, Division Merchandise Manager Performed By: #### C 47, C215, C8, C4891 #### [facility] [facility] [address] [place] [address] HIV-2 Antibody Non-Reactive Normal Non-Reactive [facility] Comment on above: Order Comment: Items in this order include: Comprehensive Metabolic Panel, Lipid Panel, Bioplex HIV 1+2 Antigen and Antibodies, w/ Reflexes, CBC with differential, Testing Performed By: [facility] [address] [place] [address] CLIA#:[id number] [address] Chanell Golden, Division Merchandise Manager Performed By: #### C 47, C215, C8, C4891 #### [facility] [address] [place] [address] CBC with differentialon 11-27 BASO # 0.0 K CUMM Normal 0.0-0.2 [facility] Comment on above: Order Comment: Items in this order include: Comprehensive Metabolic Panel, Lipid Panel, Bioplex HIV 1+2 Antigen and Antibodies, w/ Reflexes, CBC with differential, Testing Performed By: [facility] [address] [place] [address] CLIA#:[id number] [address] Chanell Golden, Division Merchandise Manager Performed By: #### C 47, C215, C8, C4891 #### [facility] [address] [place] [address] Basophils/100 WBC (Bld) 1.0 % Normal 0.0-3.0 [facility] Comment on above: Order Comment: Items in this order include: Comprehensive Metabolic Panel, Lipid Panel, Bioplex HIV 1+2 Antigen and Antibodies, w/ Reflexes, CBC with differential, Testing Performed By: [facility] [facility] [address] [place] [address] CLIA#:[id number] Dr. Chanell Golden, Division Merchandise Manager Performed By: #### C 47, C215, C8, C4891 #### [facility] [address] [place] [address] EOS # 0.2 K CUMM Normal 0.0-0.4 [facility] Comment on above: Order Comment: Items in this order include: Comprehensive Metabolic Panel, Lipid Panel, Bioplex HIV 1+2 Antigen and Antibodies, w/ Reflexes, CBC with differential, Testing Performed By: [facility] [address] [place] [address] CLIA#:[id number] Dr. Chanell Golden, Division Merchandise Manager Performed By: #### C 47, C215, C8, C4891 #### [facility], [facility]. [address] [place] [address] Eosinophils/100 WBC (Bld) 3.8 % Normal 0.0-7.0 [facility] Comment on above: Order Comment: Items in this order include: Comprehensive Metabolic Panel, Lipid Panel, Bioplex HIV 1+2 Antigen and Antibodies, w/ Reflexes, CBC with differential, Testing Performed By: [facility] [address] [place] [address] CLIA#:[id number] Dr. Chanell Golden, Division Merchandise Manager Performed By: #### C 47, C215, C8, C4891 #### [facility] [address] [place] [address] [address] [place] [address] Erythrocyte distribution width (RBC) [Ratio] 12.9 % Normal 11.5-15.5 [facility] Comment on above: Order Comment: Items in this order include: Comprehensive Metabolic Panel, Lipid Panel, Bioplex HIV 1+2 Antigen and Antibodies, w/ Reflexes, CBC with differential, Testing Performed By: [facility] [address] [place] [address] CLIA#:[id number] [address] Chanell Golden, Division Merchandise Manager Performed By: #### C 47, C215, C8, C4891 #### [facility] [address] [place] [address] [address] [place] [address] Hematocrit (Bld) [Volume fraction] 41.9 % Normal 37.0-47.0 [facility] Comment on above: Order Comment: Items in this order include: Comprehensive Metabolic Panel, Lipid Panel, Bioplex HIV 1+2 Antigen and Antibodies, w/ Reflexes, CBC with differential, Testing Performed By: [facility] [address] [place] [address] CLIA#:[id number] [address] Chanell Golden, Division Merchandise Manager Performed By: #### C 47, C215, C8, C4891 #### [facility] [address] [place] [address] Hemoglobin (Bld) [Mass/Vol] 13.6 g/dL Normal 11.5-15.5 [facility] Comment on above: Order Comment: Items in this order include: Comprehensive Metabolic Panel, Lipid Panel, Bioplex HIV 1+2 Antigen and Antibodies, w/ Reflexes, CBC with differential, Testing Performed By: [facility] [address] [place] [address] CLIA#:[id number] Dr. Chanell Golden, Division Merchandise Manager Performed By: #### C 47, C215, C8, C4891 #### [facility] [address] [place] [address] ImmGrn # 0.0 K CUMM Normal 0.0-0.3 [facility] Comment on above: Order Comment: Items in this order include: Comprehensive Metabolic Panel, Lipid Panel, Bioplex HIV 1+2 Antigen and Antibodies, w/ Reflexes, CBC with differential, Testing Performed By: [facility] [address] [place] [address] CLIA#:[id number] [address] Chanell Golden, Division Merchandise Manager Performed By: #### C 47, C215, C8, C4891 #### [facility] [address] [place] [address] ImmGrn % 0.3 % Normal 0.0-3.0 [facility] Comment on above: Order Comment: Items in this order include: Comprehensive Metabolic Panel, Lipid Panel, Bioplex HIV 1+2 Antigen and Antibodies, w/ Reflexes, CBC with differential, Testing Performed By: [facility] [address] [place] [address] CLIA#:[id number] [address] Chanell Golden, Division Merchandise Manager Performed By: #### C 47, C215, C8, C4891 #### [facility] [address] [place] [address] LYMPH # 2.1 K CUMM Normal 0.7-4.5 [facility] Comment on above: Order Comment: Items in this order include: Comprehensive Metabolic Panel, Lipid Panel, Bioplex HIV 1+2 Antigen and Antibodies, w/ Reflexes, CBC with differential, Testing Performed By: [facility] [address] [place] [address] CLIA#:[id number] [address] Chanell Golden, Division Merchandise Manager Performed By: #### C 47, C215, C8, C4891 #### [facility] [address] [place] [address] Lymphocytes/100 WBC (Bld) 52.7 % High 14.0-46.0 [facility] Comment on above: Order Comment: Items in this order include: Comprehensive Metabolic Panel, Lipid Panel, Bioplex HIV 1+2 Antigen and Antibodies, w/ Reflexes, CBC with differential, Testing Performed By: [facility] [address] [place] [address] CLIA#:[id number] Dr. Chanell Golden, Division Merchandise Manager Performed By: #### C 47, C215, C8, C4891 #### [facility] [address] [place] [address] MCH (RBC) [Entitic mass] 28.2 pg Normal 27.0-31.0 [facility] Comment on above: Order Comment: Items in this order include: Comprehensive Metabolic Panel, Lipid Panel, Bioplex HIV 1+2 Antigen and Antibodies, w/ Reflexes, CBC with differential, Testing Performed By: [facility] [address] [place] [address] CLIA#:[id number] Dr. Chanell Golden, Division Merchandise Manager Performed By: #### C 47, C215, C8, C4891 #### [facility] [address] [place] [address] MCHC (RBC) [Mass/Vol] 32.5 g/dL Normal 32.0-36.0 [facility] Comment on above: Order Comment: Items in this order include: Comprehensive Metabolic Panel, Lipid Panel, Bioplex HIV 1+2 Antigen and Antibodies, w/ Reflexes, CBC with differential, Testing Performed By: [facility] [address] [place] [address] CLIA#:[id number] [address] Chanell Golden, Division Merchandise Manager Performed By: #### C 47, C215, C8, C4891 #### [facility] [address] [place] [address] MCV (RBC) [Entitic vol] 86.9 fL Normal 78.0-100.0 [facility] Comment on above: Order Comment: Items in this order include: Comprehensive Metabolic Panel, Lipid Panel, Bioplex HIV 1+2 Antigen and Antibodies, w/ Reflexes, CBC with differential, Testing Performed By: [facility] [address] [place] [address] CLIA#:[id number] [address] Chanell Golden, Division Merchandise Manager Performed By: #### C 47, C215, C8, C4891 #### [facility] [address] [place] [address] MONO # 0.4 K CUMM Normal 0.1-1.0 [facility] Comment on above: Order Comment: Items in this order include: Comprehensive Metabolic Panel, Lipid Panel, Bioplex HIV 1+2 Antigen and Antibodies, w/ Reflexes, CBC with differential, Testing Performed By: [facility] [address] [place] [address] CLIA#:[id number] [address] Chanell Golden, Division Merchandise Manager Performed By: #### C 47, C215, C8, C4891 #### [facility] [address] [place] [address] Monocytes/100 WBC (Bld) 8.9 % Normal 4.0-13.0 [facility] Comment on above: Order Comment: Items in this order include: Comprehensive Metabolic Panel, Lipid Panel, Bioplex HIV 1+2 Antigen and Antibodies, w/ Reflexes, CBC with differential, Testing Performed By: [facility] [address] [place] [address] CLIA#:[id number] [address] Chanell Golden, Division Merchandise Manager Performed By: #### C 47, C215, C8, C4891 #### [facility] [address] [place] [address] DEXTER # 1.3 K CUMM Low 1.8-7.8 [facility] Comment on above: Order Comment: Items in this order include: Comprehensive Metabolic Panel, Lipid Panel, Bioplex HIV 1+2 Antigen and Antibodies, w/ Reflexes, CBC with differential, Testing Performed By: [facility] [address] [place] [address] CLIA#:[id number] [address] Chanell Golden, Division Merchandise Manager Performed By: #### C 47, C215, C8, C4891 #### [facility] [address] [place] [address] Neutrophils/100 WBC (Bld) 33.3 % Low 40.0-74.0 [facility] Comment on above: Order Comment: Items in this order include: Comprehensive Metabolic Panel, Lipid Panel, Bioplex HIV 1+2 Antigen and Antibodies, w/ Reflexes, CBC with differential, Testing Performed By: [facility] [address] [place] [address] CLIA#:[id number] [address]. Chanell Golden, Division Merchandise Manager Performed By: #### C 47, C215, C8, C4891 #### [facility] [address] [place] [address] Platelet mean volume (Bld) [Entitic vol] 9.5 fL Normal 8.9-12.6 [facility] Comment on above: Order Comment: Items in this order include: Comprehensive Metabolic Panel, Lipid Panel, Bioplex HIV 1+2 Antigen and Antibodies, w/ Reflexes, CBC with differential, Testing Performed By: [facility] [address] [place] [address] CLIA#:[id number] [address]. Chanell Golden, Division Merchandise Manager Performed By: #### C 47, C215, C8, C4891 #### [facility] [address] [place] [address] PLT 287 K CUMM Normal 130-400 [facility] Comment on above: Order Comment: Items in this order include: Comprehensive Metabolic Panel, Lipid Panel, Bioplex HIV 1+2 Antigen and Antibodies, w/ Reflexes, CBC with differential, Testing Performed By: [facility] [address] [place] [address] CLIA#:[id number] [address] Chanell Golden, Division Merchandise Manager Performed By: #### C 47, C215, C8, C4891 #### [facility] [address] [place] [address] RBC 4.82 M CUMM Normal 3.80-5.10 [facility] Comment on above: Order Comment: Items in this order include: Comprehensive Metabolic Panel, Lipid Panel, Bioplex HIV 1+2 Antigen and Antibodies, w/ Reflexes, CBC with differential, Testing Performed By: [facility] [address] [place] [address] CLIA#:[id number] [address] Chanell Golden, Division Merchandise Manager Performed By: #### C 47, C215, C8, C4891 #### [facility] [address] [place] [address] WBC 4.0 K CUMM Normal 3.8-10.6 [facility] Comment on above: Order Comment: Items in this order include: Comprehensive Metabolic Panel, Lipid Panel, Bioplex HIV 1+2 Antigen and Antibodies, w/ Reflexes, CBC with differential, Testing Performed By: [facility] [address] [place] [address] CLIA#:[id number] Dr. Chanell Golden, Division Merchandise Manager Performed By: #### C 47, C215, C8, C4891 #### [facility] [address] [place] [address] Comprehensive Metabolic Pane homero 12-23-2021 Albumin [Mass/Vol] 4.2 g/dL Normal 3.2-4.8 [facility] Comment on above: Order Comment: Items in this order include: Comprehensive Metabolic Panel, Lipid Panel, Bioplex HIV 1+2 Antigen and Antibodies, w/ Reflexes, CBC with differential, Testing Performed By: [facility] [address] [place] [address] CLIA#:[id number] [address] Chanell Golden, Division Merchandise Manager Performed By: #### C 47, C215, C8, C4891 #### [facility] [address] [place] [address] Albumin/Globulin [Mass ratio] 1.6 {ratio} Normal [facility] Comment on above: Order Comment: Items in this order include: Comprehensive Metabolic Panel, Lipid Panel, Bioplex HIV 1+2 Antigen and Antibodies, w/ Reflexes, CBC with differential, Testing Performed By: [facility] [address] [place] [address] CLIA#:[id number] [address] Chanell Golden, Division Merchandise Manager Performed By: #### C 47, C215, C8, C4891 #### [facility] [address] [place] [address] [address] [place] [address] Alk Phos 47 U/L Normal 20-147 [facility] Comment on above: Order Comment: Items in this order include: Comprehensive Metabolic Panel, Lipid Panel, Bioplex HIV 1+2 Antigen and Antibodies, w/ Reflexes, CBC with differential, Testing Performed By: [facility] [address] [place] [address] CLIA#:[id number] [address] Chanell Golden, Division Merchandise Manager Performed By: #### C 47, C215, C8, C4891 #### [facility] [address] [place] [address] [address] [place] [address] ALT [Catalytic activity/Vol] 13 U/L Normal 10-49 [facility] Comment on above: Order Comment: Items in this order include: Comprehensive Metabolic Panel, Lipid Panel, Bioplex HIV 1+2 Antigen and Antibodies, w/ Reflexes, CBC with differential, Testing Performed By: [facility] [address] [place] [address] CLIA#:[id number] [address] Chanell Golden, Division Merchandise Manager Performed By: #### C 47, C215, C8, C4891 #### [facility] [place] [address] AST [Catalytic activity/Vol] 18 U/L Normal <34 [facility] Comment on above: Order Comment: Items in this order include: Comprehensive Metabolic Panel, Lipid Panel, Bioplex HIV 1+2 Antigen and Antibodies, w/ Reflexes, CBC with differential, Testing Performed By: [facility] [address] [place] [address] CLIA#:[id number] Dr. Chanell Golden, Division Merchandise Manager Performed By: #### C 47, C215, C8, C4891 #### [facility] [address] [place] [address] B/C Ratio 15.7 Ratio Normal [facility] Comment on above: Order Comment: Items in this order include: Comprehensive Metabolic Panel, Lipid Panel, Bioplex HIV 1+2 Antigen and Antibodies, w/ Reflexes, CBC with differential, Testing Performed By: [facility] [address] [place] [address] CLIA#:[id number] [address]. Chanell Golden, Division Merchandise Manager Performed By: #### C 47, C215, C8, C4891 #### [facility] [address] [place] [address] Bilirubin [Mass/Vol] 0.6 mg/dL Normal 0.3-1.2 [facility] Comment on above: Order Comment: Items in this order include: Comprehensive Metabolic Panel, Lipid Panel, Bioplex HIV 1+2 Antigen and Antibodies, w/ Reflexes, CBC with differential, Testing Performed By: [facility] [address] [place] [address] CLIA#:[id number] Dr. Chanell Golden, Division Merchandise Manager Performed By: #### C 47, C215, C8, C4891 #### [facility] [address] [place] [address] Calcium [Mass/Vol] 9.2 mg/dL Normal 8.3-10.6 [facility] Comment on above: Order Comment: Items in this order include: Comprehensive Metabolic Panel, Lipid Panel, Bioplex HIV 1+2 Antigen and Antibodies, w/ Reflexes, CBC with differential, Testing Performed By: [facility] [address] [place] [address] CLIA#:[id number] [address] Chanell Golden, Division Merchandise Manager Performed By: #### C 47, C215, C8, C4891 #### [facility] [address] [place] [address] Chloride [Moles/Vol] 107 mmol/L Normal 98-107 [facility] Comment on above: Order Comment: Items in this order include: Comprehensive Metabolic Panel, Lipid Panel, Bioplex HIV 1+2 Antigen and Antibodies, w/ Reflexes, CBC with differential, Testing Performed By: [facility] [address] [place] [address] CLIA#:[id number] [address] Chanell Golden, Division Merchandise Manager Performed By: #### C 47, C215, C8, C4891 #### [facility] [address] [place] [address] [address] [place] [address] CO2 [Moles/Vol] 26 mmol/L Normal 20-31 [facility] Comment on above: Order Comment: Items in this order include: Comprehensive Metabolic Panel, Lipid Panel, Bioplex HIV 1+2 Antigen and Antibodies, w/ Reflexes, CBC with differential, Testing Performed By: [facility] [address] [place] [address] CLIA#:[id number] [address] Chanell Golden, Division Merchandise Manager Performed By: #### C 47, C215, C8, C4891 #### [facility] [address] [place] [address] Creatinine [Mass/Vol] 0.7 mg/dL Normal 0.6-1.0 [facility] Comment on above: Order Comment: Items in this order include: Comprehensive Metabolic Panel, Lipid Panel, Bioplex HIV 1+2 Antigen and Antibodies, w/ Reflexes, CBC with differential, Testing Performed By: [facility] [address] [place] [address] CLIA#:[id number] Dr. Chanell Golden, Division Merchandise Manager Performed By: #### C 47, C215, C8, C4891 #### [facility] [address] [place] [address] GFR 103 mL/min per 1.73 Normal >60 [facility] Comment on above: Order Comment: Items in this order include: Comprehensive Metabolic Panel, Lipid Panel, Bioplex HIV 1+2 Antigen and Antibodies, w/ Reflexes, CBC with differential, Testing Performed By: [facility] [address] [place] [address] CLIA#:[id number] Dr. Chanell Golden, Division Merchandise Manager Result Comment: The GFR estimate is not adjusted for race. If the patient's race is -German, the GFR estimate must be multiplied by a factor of 1.21. Performed By: #### C 47, C215, C8, C4891 #### [facility] [address] [place] [address] Globulin (S) [Mass/Vol] 2.7 g/dL Normal [facility] Comment on above: Order Comment: Items in this order include: Comprehensive Metabolic Panel, Lipid Panel, Bioplex HIV 1+2 Antigen and Antibodies, w/ Reflexes, CBC with differential, Testing Performed By: [facility] [address] [place] [address] CLIA#:[id number] [address] Chanell Golden, Division Merchandise Manager Performed By: #### C 47, C215, C8, C4891 #### [facility] [address] [place] [address] Glucose [Mass/Vol] 79 mg/dL Normal 74-106 [facility] Comment on above: Order Comment: Items in this order include: Comprehensive Metabolic Panel, Lipid Panel, Bioplex HIV 1+2 Antigen and Antibodies, w/ Reflexes, CBC with differential, Testing Performed By: [facility] [address] [place] [address] CLIA#:[id number] [address] Chanell Golden, Division Merchandise Manager Performed By: #### C 47, C215, C8, C4891 #### [facility] [address] [facility] [place] [address] Potassium [Moles/Vol] 3.9 mmol/L Normal 3.5-5.1 [facility] Comment on above: Order Comment: Items in this order include: Comprehensive Metabolic Panel, Lipid Panel, Bioplex HIV 1+2 Antigen and Antibodies, w/ Reflexes, CBC with differential, Testing Performed By: [facility] [address] [place] [address] CLIA#:[id number] Dr. Chanell Golden, Division Merchandise Manager Performed By: #### C 47, C215, C8, C4891 #### [facility], [facility]. [address] [place] [address] [place] [address] Protein [Mass/Vol] 6.9 g/dL Normal 5.7-8.2 [facility] Comment on above: Order Comment: Items in this order include: Comprehensive Metabolic Panel, Lipid Panel, Bioplex HIV 1+2 Antigen and Antibodies, w/ Reflexes, CBC with differential, Testing Performed By: [facility] [address] [place] [address] CLIA#:[id number] [address] Chanell Golden, Division Merchandise Manager Performed By: #### C 47, C215, C8, C4891 #### [facility] [address] [place] [address] [place] [address] Sodium [Moles/Vol] 140 mmol/L Normal 136-145 [facility] Comment on above: Order Comment: Items in this order include: Comprehensive Metabolic Panel, Lipid Panel, Bioplex HIV 1+2 Antigen and Antibodies, w/ Reflexes, CBC with differential, Testing Performed By: [facility] [address] [place] [address] CLIA#:[id number] Dr. Chanell Golden, Division Merchandise Manager Performed By: #### C 47, C215, C8, C4891 #### [facility], [facility]. [address] [place] [address] [address] [place] [address] Urea nitrogen [Mass/Vol] 11 mg/dL Normal 9-23 [facility] Comment on above: Order Comment: Items in this order include: Comprehensive Metabolic Panel, Lipid Panel, Bioplex HIV 1+2 Antigen and Antibodies, w/ Reflexes, CBC with differential, Testing Performed By: [facility] [address] [place] [address] CLIA#:[id number] [address] Chanell Golden, Division Merchandise Manager Performed By: #### C 47, C215, C8, C4891 #### [facility] [address] [facility] [place] [address] Extra HIVon 12-23-2021 Extra HIV 0.00 Received Normal [facility] Comment on above: Order Comment: Items in this order include: Extra HIV Testing Performed By: [facility] [address] [place] [address] CLIA#:[id number] [address] Chanell Golden, Division Merchandise Manager Performed By: #### E XTRAHIV #### [facility] [address] [place] [address] Hepatitis C Ab W/Reflex HCV RNA PCRon 12-23-2021 Hepatitis C Ab Non-Reactive Normal Non-Reactive [facility] Comment on above: Order Comment: Items in this order include: Hepatitis C Ab W/Reflex HCV RNA PCR Testing Performed By: [facility] [address] [place] [address] CLIA#:[id number] [address] Chanell Golden, Division Merchandise Manager Performed By: #### C 4264 #### [facility] [address] [facility] [place] [address] Lipid Panelon 12-23-2021 Cholesterol [Mass/Vol] 167 mg/dL Normal <200 [facility] Comment on above: Result Comment: Low- risk levels (desirable) < 200 mg/dL Moderate-risk levels (borderline) 200 to 239 mg/dL High-risk levels > or = 240 mg/dL Performed By: #### C 47, C215, C8, C4891 #### [facility] [address] [facility] [place] [facility] [address] [place] [address] Cholesterol in HDL [Mass/Vol] 69 mg/dL Normal >60 [facility] Comment on above: Performed By: #### C 47, C215, C8, C4891 #### [facility] [address] [facility] [place] [address] Cholesterol in LDL [Mass/Vol] 86 mg/dL Normal <130 [facility] Comment on above: Performed By: #### C 47, C215, C8, C4891 #### [facility] [address] [facility] [address] [place] [address] Cholesterol.total/C holesterol in HDL [Mass ratio] 2.4 {ratio} Normal <4.0 [facility] Comment on above: Performed By: #### C 47, C215, C8, C4891 #### [facility] [address] [facility] [address] [place] [address] Non-HDL Chol 98 Normal LDL Goal + 30 [facility] Comment on above: Result Comment: LDL and Non-HDL goal dependent upon individual risk Performed By: #### C 47, C215, C8, C4891 #### [facility] [address] [facility] [address] [place] [address] Triglyceride [Mass/Vol] 58 mg/dL Normal <150 [facility] Comment on above: Performed By: #### C 47, C215, C8, C4891 #### [facility] [address] [facility] [address] [place] [address] VLDL-Calc 12 mg/dl Normal <30 [facility] Comment on above: Performed By: #### C 47, C215, C8, C4891 #### [facility] [address] [facility] [address] [place] [address] Office Visit: est annualon 1 12-17-2016 Documentation of current medications (procedure) Done Invalid Interpretation Code [facility] Fall risk assessment No Invalid Interpretation Code [facility] Hemoglobin presence in stool not done Invalid Interpretation Code [facility] Tobacco smoking status NHIS Never Invalid Interpretation Code [facility] Tobacco use CPHS Never smoker Invalid Interpretation Code [facility] Vital Signs Date Time Vital Sign Value Performing Clinician Zuly carlton 04-06-2025 16:02-0400 Body height 160 cm Marilee Mejia MD Work Phone: [facility] 04-06-2025 16:02-0400 Body mass index (BMI) [Ratio] 22 kg/m2 Marilee Mejia MD Work Phone: [facility] 04-06-2025 16:02-0400 Body weight 56.34 kg Marilee Mejia MD Work Phone: [facility] 04-06-2025 16:02-0400 Diastolic blood pressure 70 mm[Hg] Marilee Mejia MD Work Phone: [facility] 04-06-2025 16:02-0400 Heart rate 82 /min Marilee Mejia MD Work Phone: [facility] 04-06-2025 16:02-0400 Systolic blood pressure 108 mm[Hg] Marilee Mejia MD Work Phone: [facility] 03-07-2025 09:23-0400 Body height 160 cm Rodney Huta [employer] MACHINE-[employer]NEQUIN MOUNTER Work Phone: [facility] 03-07-2025 09:23-0400 Body mass index (BMI) [Ratio] 22.14 kg/m2 Rodney Rambo [employer] MACHINE-MANNEQUIN MOUNTER Work Phone: [facility] 03-07-2025 09:23-0400 Body temperature 98.1 [degF] Rodney Rambo [employer] MACHINE-MANNEQUIN MOUNTER Work Phone: [facility] 03-07-2025 09:23-0400 Body weight 56.7 kg Rodney Ricks [employer] MACHINE-[employer]NEQUIN MOUNTER Work Phone: [facility] 03-07-2025 09:23-0400 Diastolic blood pressure 69 mm[Hg] Rodney Huta [employer] MACHINE-MANNEQUIN MOUNTER Work Phone: [facility] 03-07-2025 09:23-0400 Heart rate 78 /min Rodney Rambo [employer] MACHINE-MANNEQUIN MOUNTER Work Phone: [facility] 03-07-2025 09:23-0400 Respiratory rate 16 /min Rodney Ricks [employer]KER MACHINE-MANNEQUIN MOUNTER Work Phone: [facility] 03-07-2025 09:23-0400 SaO2% (BldA) [Mass fraction] 100 % Rodney Ricks [employer]KER MACHINE-MANNEQUIN MOUNTER Work Phone: [facility] 03-07-2025 09:23-0400 Systolic blood pressure 97 mm[Hg] Rodney Ricks [employer] MACHINE-MANNEQUIN MOUNTER Work Phone: [facility] 01-15-2025 14:29-0500 Body height 160.[address] Duglas Welch MD Work Phone: [facility] 01-15-2025 14:29-0500 Body mass index (BMI) [Ratio] 21.9 kg/m2 Dr. Duglas Welch MD Work Phone: [facility] 01-15-2025 14:29-0500 Body weight 56.[address] Duglas Welch MD Work Phone: [facility] 01-15-2025 14:29-0500 Diastolic blood pressure 74 mm[Hg] Dr. Duglas Welch MD Work Phone: [facility] 01-15-2025 14:29-0500 Systolic blood pressure 110 mm[Hg] Dr. Duglas Welch MD Work Phone: [facility] 11-04-2024 08:17-0500 Body height 160 cm Marilee Mejia MD Work Phone: [facility] 11-04-2024 08:17-0500 Body mass index (BMI) [Ratio] 21.43 kg/m2 Marilee Mejia MD Work Phone: [facility] 11-04-2024 08:17-0500 Body weight 54.88 kg Marilee Mejia MD Work Phone: [facility] 11-04-2024 08:17-0500 Diastolic blood pressure 70 mm[Hg] Marilee Mejia MD Work Phone: [facility] 11-04-2024 08:17-0500 Heart rate 70 /min Marilee Mejia MD Work Phone: [facility] 11-04-2024 08:17-0500 SaO2% (BldA) [Mass fraction] 98 % Marilee Mejia MD Work Phone: [facility] 11-04-2024 08:17-0500 Systolic blood pressure 102 mm[Hg] Marilee Mejia MD Work Phone: [facility] 11-28-2022 16:25-0500 Diastolic blood pressure 66 mm[Hg] [address] [employer] 11-28-2022 16:25-0500 Heart rate 73 /min [address] [employer] 11-28-2022 16:25-0500 Respiratory rate 13 /min [address] [employer] 11-28-2022 16:25-0500 SaO2% (BldA) [Mass fraction] 100 % [place] [address] [employer] 11-28-2022 16:25-0500 Systolic blood pressure 108 mm[Hg] [place] [address] [employer] 11-28-2022 15:55-0500 Body temperature 98.6 [degF] [address] [employer] 11-28-2022 14:15-0500 Body height 157.5 cm [place] [address] [employer] 11-28-2022 14:15-0500 Body mass index (BMI) [Ratio] 22.53 kg/m2 [place] [address] [employer] 11-28-2022 14:15-0500 Body weight 55.88 kg [place] [address] [employer] 10-25-2022 17:05-0500 Body height 157.5 cm Erin [employer] Work Phone: [facility] [employer] 10-25-2022 17:05-0500 Body mass index (BMI) [Ratio] 21.95 kg/m2 [employer] Work Phone: [facility] [employer] 10-25-2022 17:05-0500 Body temperature 98.29 [degF] [address] [employer] Work Phone: [facility] [employer] 10-25-2022 17:05-0500 Body weight 54.43 [address] [employer] Work Phone: [facility] 10-25-2022 17:05-0500 Diastolic blood pressure 72 mm[Hg] Erin [employer] Work Phone: [facility] 10-25-2022 17:05-0500 Heart rate 91 /min Erin [employer] [employer] Work Phone: [facility] 10-25-2022 17:05-0500 Respiratory rate 16 /min Erin [address] [employer] Work Phone: [facility] 10-25-2022 17:05-0500 SaO2% (BldA) [Mass fraction] 99 % Erin [address] [employer] Work Phone: [facility] 10-25-2022 17:05-0500 Systolic blood pressure 114 mm[Hg] Erin [employer] [employer] Work Phone: [facility] 10-17-2017 08:25-0500 BMI (Body Mass Index) 21.01 kg/m2 Shelley Whitaker MD [facility] 10-17-2017 08:25-0500 BP Diastolic 69 mm[Hg] Shelley Whitaker MD [facility] 10-17-2017 08:25-0500 BP Systolic 105 mm[Hg] Shelley Whitaker MD [facility] 10-17-2017 08:25-0500 Height 160.02 cm Shelley Whitaker MD [facility] 10-17-2017 08:25-0500 Weight 53.8 kg Shelley Whitaker MD [facility] Encounters Encounter Date Encounter Type Care Provider Facility Start: 08-21-2025 ambulatory Marcia Velasquez Facility :[facility] Start: 08-13-2025 ambulatory Isabella Palacio cility:[facility] Start: 08-07-2025 End: 08-07-[address] Shelley Whitaker MD -[facility] Work Phone: Start: 08-07-2025 End: 08-07-[address] Marilee Mejia MD Work Phone: -[facility] Start: 04-06-2025 End: 04-06-2025 Office outpatient visit 25 minutes Marilee Mejia MD Work Phone: [facility] Comment on above: Sore throat (Primary Dx); Fever, unspecified fever cause; Vaginal yeast infection; Strep pharyngitis Start: 04-06-2025 End: 04-06-2025 ambulatory MARILEE [facility] Start: 03-07-2025 End: 03-07-2025 Patient encounter procedure Rodney Ricks [employer] MACHINE-MANNEQUIN MOUNTER Work Phone: [facility] Comment on above: Acute conjunctivitis , unspecified acute conjunctivitis type, unspecified laterality (Primary Dx) Start: 03-07-2025 End: 03-07-2025 ambulatory MARILEE Mccloud [facility] Start: 01-26-2025 End: 01-26-[address] Duglas Welch MD Work Phone: [facility] Work Phone: Start: 01-26-2025 End: 01-26-2025 Patient encounter procedure Rosemary ALEXANDRE -Outpatient Breast Imaging Work Phone: Start: 01-26-2025 End: 01-26-2025 ambulatory Duglas Welch Facility:[facility] Start: 01-15-2025 End: 01-15-2025 Patient encounter procedure Rosemary ALEXANDRE -Laboratory, Specimen Work Phone: Start: 01-15-2025 End: 01-15-2025 Patient encounter procedure Rosemary ALEXANDRE -[facility] Work Phone: Start: 01-15-2025 End: 01-15-2025 Patient encounter status Rosemary ALEXANDRE [facility] Start: 01-15-2025 End: 01-15-2025 ambulatory Duglas Welch Facility:[facility] Start: 01-15-2025 End: 01-15-2025 ambulatory [facility] Facility:[facility] Start: 11-04-2024 End: 11-04-2024 Office outpatient new 45 minutes Marilee Mejia MD Work Phone: [facility] Comment on above: Encounter to [facility] with new doctor (Primary Dx); Family history of breast cancer; Needs flu shot; Ulcerative colitis without complications, unspecified location (Multi) Start: 11-04-2024 End: 11-04-2024 ambulatory MARILEE Mccloud SUSY [facility] Start: 10-10-2024 End: 10-10-2024 ambulatory CLEMENT SIMS [facility] Start: 10-03-2024 End: 10-03-2024 ambulatory Luis HARDING Facility:[facility] Start: 05-22-2024 ambulatory HUI [facility] Start: 05-21-2024 End: 05-21-2024 ambulatory HUI GOLDEN [facility] Start: 05-21-2024 End: 05-21-2024 Encounter for general adult medical examination without abnormal findings HUI GOLDEN [facility] Start: 05-01-2024 End: 05-01-20[facility] Start: 04-30-2024 ambulatory HUI [facility] Start: 10-24-2023 ambulatory HUI [facility] Start: 04-10-2023 ambulatory BETTY RAY [facility] Start: 11-28-2022 ambulatory LATAI WATSON~[id number] [facility] Start: 11-28-2022 End: 11-28-2022 Evaluation and management of inpatient McSa Proc Rm [address] [facility] Start: 11-28-2022 End: 11-28-2022 Subsequent hospital visit by physician Shirley Jeffery MD Work Phone: [facility] Comment on above: 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; Colitis Start: 10-25-2022 End: 10-25-2022 ambulatory HERLINDA BLOOM [facility] Start: 10-25-2022 End: 10-25-2022 Office outpatient new 30 minutes Erin Pruitt NP Work Phone: [facility] Comment on above: Acute right otitis m edia (Primary Dx); Acute non-recurrent frontal sinusitis; Nasal congestion; Acute cough; Encounter for screening for other viral diseases Start: 10-25-2022 End: 10-25-2022 Patient encounter procedure Erin Pruitt PIE [employer]ER Work Phone: [facility] Procedures Date Procedure Procedure Detail Performing Clinician Start: 04-06-2025 End: 04-06-2025 Iaadiadoo streptococcus group a Marilee Mejia MD Work Phone: Start: 01-26-2025 Bilateral mammography Shana Welch MD Work Phone: Start: 01-26-[address] Duglas Welch MD Work Phone: Start: 11-28-2022 Colonoscopy Shirley leggett MD Work Phone: Start: 11-28-2022 Level iv surg pathol ogy gross&microscopic exam Shirley Jeffery MD Work Phone: Start: 10-25-2022 Iaadiadoo influenza Abner Pruitt NP Work Phone: Plan of Treatment Date Care Activity Detail Author Start: 2048 Zoster Vaccines (1 of 2) Zoster Vaccines (1 of 2) [facility] Start: 12-23-2031 DTaP,Tdap,and Td Vaccines (8 - Td or Tdap) DTaP,Tdap,and Td Vaccines (8 - Td or Tdap) [facility] Start: 12-23-2031 DTaP/Tdap/Td Vaccines (8 - Td or Tdap) DTaP/Tdap/Td Vaccines (8 - Td or Tdap) [facility] Start: 11-05-2025 End: 11-05-2025 Patient encounter procedure 11/05/2025 8:00 AM EST Office Visit [facility] [address] [id number] Marilee Mejia MD [address] [address] [facility] Start: 07-27-2024 COVID-19 Vaccine () COVID-19 Vaccine () [facility] Start: 11-28-2022 End: 11-28-2022 Patient encounter procedure 11/28/2022 Appointment Gastroenterology Shirley Jeffery [address] [id number] [facility] Start: 09-02-2022 COVID-19 Vaccine (4 - Booster for Pfizer series) COVID-19 Vaccine (4 - Booster for Pfizer series) [facility] Start: 07-27-2022 Influenza vaccination Influenza Vaccine (#1) [facility] Start: 06-03-2021 Adolescent depression screening assessment Depression Screening [facility] Start: 06-03-2021 Hepatitis C screening Hepatitis C Screening [facility] Start: 06-03-2021 HIV screening HIV Screening [facility] Start: 06-03-2021 Lipid panel Cholesterol Screening (Lipid Panel) [facility] Start: 06-03-2021 Screening for Chlamydia trachomatis Gonorrhea/Chlamydia Screening [facility] Start: 06-03-2021 Social Influencers of Health Screening Social Influencers of Health Screening [facility] Start: 2019 Screening for malignant neoplasm of cervix [facility] Start: 10-17-2017 End: 10-17-2017 Appointment Appointment [facility] Start: 2016 Diabetes mellitus screening Diabetes Screening [facility] Start: 2004 Pneumococcal Vaccine: Pediatrics (0 to 5 Years) and At-Risk Patients (6 to 64 Years) (1 - PCV) Pneumococcal Vaccine: Pediatrics (0 to 5 Years) and At-Risk Patients (6 to 64 Years) (1 - PCV) [facility] Start: 05-08-2003 Varicella vaccination Varicella Vaccines (2 of 2 - 2-dose childhood series) [facility] Start: 1999 Hepatitis B Surface Antibody Hepatitis B Surface Antibody [facility] Start: 1998 Hepatitis B Vaccines (3 of 3 - 3-dose series) Hepatitis B Vaccines (3 of 3 - 3-dose series) [facility] Start: 1998 Cyanocobalamin vitamin b-12 Vitamin B-12 [facility] Start: 1998 Lipid panel Lipid Panel [facility] Start: 1998 Screening for osteoporosis Bone Density Scan [facility] Start: 1998 TB Test TB Test [facility] Start: 1998 Vitamin D25-OH Vitamin D25-OH [facility] Start: 1998 Yearly Adult Physical Yearly Adult Physical [facility] Immunizations Immunization Date Immunization Notes Care Provider Fa [facility] 11-04-2024 Seasonal, trivalent, recombinant, injectable influenza vaccine, preservative free Marilee Mejia MD Work Phone: [facility] Work Phone: 10-21-2021 influenza virus vaccine, unspecified formulation Erin Pruitt NP Work Phone: [facility] 04-07-1999 varicella virus vaccine Arvind Mejia MD Work Phone: [facility] Work Phone: Payers Date Payer Category Payer Self-pay [id number] 2024 Self-pay 2024 Managed Care (Private) [facility] Member Subscriber Plan / Payer (Effective 2024-Present) Name: Megan Bedolla Relation to Subscriber: Self Name: AbelinoMegan lott Payer ID: Not on file Type: Not on file Address: [place] [id number] 2024 Unknown [id number] 2023 Unknown [id number] 2021 Private Health Insurance [employer] [id number] 2021-Present [address] [place] [address] [id number] 2021 Private Health Insurance [id number] 1998 Unknown [id number] 2.16.840.1.783482.3.579.2. 1143 1998 Unknown [id number] 2.16.840.1.750456.3.579.2. 1143 1998 Unknown [id number] 2.16.840.1.061768.3.579.2. 1143 1998 Unknown [id number] 2.16.840.1.334602.3.579.2. 1260 1998 Unknown [id number] 2.16.840.1.312505.3.579.2. 1260 1998 Unknown [id number] 2.16.840.1.928072.3.579.2. 1260 1998 Unknown [id number] 2.16.840.1.319854.3.579.2. 1260 1998 Unknown [id number] 2.16.840.1.604601.3.579.2. 1260 1998 Unknown [id number] 2.16.840.1.589362.3.579.2. 1260 1998 Unknown [id number] 2.16.840.1.553432.3.579.2. 1243 1998 Unknown [id number] 2.16.840.1.244951.3.579.2. 1244 1998 Unknown [id number] 2.16.840.1.459277.3.579.2. 1244 Medicaid [id number] Unknown [id number] Unknown [id number] 2.16.840.1.806662.3.579.2. 462 Unknown [id number] 2.16.840.1.179638.3.579.2. 462 Unknown [id number] 2.16.840.1.137580.3.579.2. 462 Unknown [id number] 2.16.840.1.144490.3.579.2. 462 Unknown [id number] 2.16.840.1.838736.3.579.2. 462 Unknown [id number] 2.16.840.1.617403.3.579.2. 462 Unknown [id number] 2.16.840.1.339557.3.579.2. 462 Social History Date Type Detail Facility Start: 10-25-2022 End: 08-07-2025 Tobacco smoking status AZIS Never smoked tobacco [facility] Start: 10-25-2022 End: 11-04-2024 Tobacco use and exposure Smokeless tobacco non-user [facility] Start: 10-25-2022 End: 04-06-2025 Alcohol intake Ex-drinker (finding) [facility] Start: 1998 Sex Assigned At Not on file T [facility] Start: 10-15-2022 End: 03-07-2025 Exposure to SARS-CoV-2 (event) Not sure [facility] Start: 11-28-2022 Alcohol intake Current drinke r of alcohol (finding) [facility] Start: 11-24-2022 Alcohol Comment rare occasionally [facility] Start: 11-04-2024 End: 04-06-2025 History of Social function [facility] Work Phone: Start: 11-04-2024 End: 04-06-2025 Tobacco use panel [facility] Work Phone: Start: 11-02-2024 Gender identity Identifies as female gender (finding) [facility] Start: 11-02-2024 Sexual orientation Heterosexual (ervin bright) [facility] Work Phone: Start: 02-05-2025 Sex Female (finding) Luis r [facility] Start: 1998 Sex Assigned At Female W ooster [facility] NEGATED: Highlighted rowStart: ZENIAF History of tobacco use Passive smoker [facility] Work Phone: Clinical Notes 10-25-2022 to 04-06-2025 Marilee Mejia MD - 04/06/2025 4:00 PM VIRA Barton - 03/07/2025 9:20 AM EDT Note Date & Type Note Facility 04-06-2025 History of Present illness Narrative Subjective: Megan Bedolla is a 25 y.o. female who presents to clinic today for Fever (Complains of fever, sore throat, cough since Sunday) Sunday an Sunday had a mild sore throat and felt achy. Poyntelle poor Sunday night and woke up with a temp of 102*F Sunday. Having chills, headache, body aches and has taken tylenol cold and flu. Runny nose. No GI symptoms. Did feel nauseas Sunday night. 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 Answers submitted by the patient for this visit: Fever Questionnaire (Submitted on 04/06/2025) Chief Complaint: Fever Chronicity: new Onset: yesterday contaminated food: No contaminated water: No history of cancer: Yes occupational exposure: No recent travel: No immunosuppression: No recent illness: No sick contacts: No Frequency: 2 to 4 times per day Progression since onset: waxing and waning Max temp prior to arrival: 102 to 102.9 F Temperature source: an oral thermometer muscle aches: Yes sleepiness: Yes Review of Systems Constitutional: Positive for fever. HENT: Positive for congestion, ear pain and sore throat. Respiratory: Positive for cough. Negative for wheezing. Cardiovascular: Negative for chest pain. Gastrointestinal: Positive for nausea. Negative for abdominal pain, diarrhea and vomiting. Genitourinary: Negative for dysuria. Skin: Negative for rash. Neurological: Positive for headaches. Assessment/Plan: Megan Bedolla is a 25 y.o. female with a history of ulcerative colitis, off of medications who presents to clinic today to address the following issues: 1. Sore throat POCT Rapid Strep A manually resulted POCT Influenza A/B manually resulted penicillin v potassium (Veetid) 500 mg tablet CANCELED: POCT BinaxNOW Covid-19 Ag Card manually resulted 2. Fever, unspecified fever cause POCT Rapid Strep A manually resulted POCT Influenza A/B manually resulted CANCELED: POCT [employer]axNOW Covid-19 Ag Card manually resulted 3. Vaginal yeast infection fluconazole (Diflucan) 150 mg tablet 4. Strep pharyngitis penicillin v potassium (Veetid) 500 mg tablet - Acute problem, unresolved, new to this provider, requires further workup and treatment - strep throat, peniclillin V 500mg BID for 10 days Hx of vaginal yeast infections: will preemptively treat with diflucan if needed Problem List Items Addressed This Visit None Visit Diagnoses Sore throat - Primary Relevant Medications penicillin v potassium (Veetid) 500 mg tablet Other Relevant Orders POCT Rapid Strep A manually resulted (Completed) POCT Influenza A/B manually resulted (Completed) Fever, unspecified fever cause Relevant Orders POCT Rapid Strep A manually resulted (Completed) POCT Influenza A/B manually resulted (Completed) Vaginal yeast infection Relevant Medications fluconazole (Diflucan) 150 mg tablet Strep pharyngitis Relevant Medications penicillin v potassium (Veetid) 500 mg tablet There are no Patient Instructions on file for this visit. Follow up: as needed Return precautions discussed. An After Visit Summary was given to the patient. All questions were answered and patient in agreement with plan. Objective: BP 108/70 Pulse 82 Ht 1.6 m (5' 3) Wt 56.3 kg (124 lb 3.2 oz) BMI 22.00 kg/m Physical Exam Vitals and nursing note reviewed. Constitutional: General: She is not in acute distress. Appearance: Normal appearance. HENT: Head: Normocephalic and atraumatic. Right Ear: Tympanic membrane and ear canal normal. Left Ear: Tympanic membrane and ear canal normal. Nose: No congestion. Mouth/Throat: Mouth: Mucous membranes are moist. Pharynx: Oropharyngeal exudate and posterior oropharyngeal erythema present. Eyes: General: No scleral icterus. Right eye: No discharge. Left eye: No discharge. Extraocular Movements: Extraocular movements intact. Conjunctiva/sclera: Conjunctivae normal. Cardiovascular: Rate and Rhythm: Normal rate and regular rhythm. Pulmonary: Effort: Pulmonary effort is normal. No respiratory distress. Breath sounds: Normal breath sounds. Lymphadenopathy: Cervical: Cervical adenopathy present. Skin: General: Skin is warm and dry. Neurological: General: No focal deficit present. Mental Status: She is alert and oriented to person, place, and time. Psychiatric: Attention and Perception: Attention normal. Mood and Affect: Mood normal. Speech: Speech normal. Behavior: Behavior normal. Cognition and Memory: Cognition and memory normal. Judgment: Judgment normal. I spent 10 minutes in total time for this visit including all related clinical activities before, during, and after the visit excluding other billable activities/procedure time. Marilee Mejia MD documented in this encounter [facility] Work Phone: 03-07-2025 History of Present illness Narrative [facility] Rodney Ricks APRN-MANNEQUIN MOUNTER Visit Note - 03/07/2025 9:39 AM This note was generated with voice recognition software and may contain errors including spelling, grammar, syntax, and misrecognization of what was dictated. Patient: Megan Bedolla, , 24 y.o., female PCP: Marilee Mejia MD ---- ALLERGIES: No Known Allergies CURRENT MEDICATIONS: Current Outpatient Medications Medication Instructions ohffvsotot-qhc-wqjdw-menth-euc 8 % solution Apply small amount on the affected nail once a day polymyxin B sulf-trimethoprim (Polytrim) ophthalmic solution 1 drop, ophthalmic (eye), 4 times daily ---- PAST MEDICAL HX: Patient Active Problem List Diagnosis Family history of breast cancer Ulcerative colitis without complications (Multi) SURGICAL HX: History reviewed. No pertinent surgical history. FAMILY HX: No pertinent history. SOCIAL HX: reports that she has never smoked. She has never been exposed to tobacco smoke. She has never used smokeless tobacco. Enjoys running. ---- CHIEF COMPLAINT: Chief Complaint Patient presents with Eye Pain Left eye irritation, red/ goopy x today HISTORY OF PRESENT ILLNESS: The history was obtained from patient. Megan is a 24 y.o. female, who presents with a chief complaint of pink eye in L eye that started this AM. Reports eye is slightly itchy and had a lot of goopy drainage in her eye this AM when she woke up. Denies any eye pain and foreign body sensation, and denies any light sensitivity. Also denies any changes in vision. No known injury or irritants, and no history of seasonal allergies or recent URI symptoms. Sometimes wears glasses but only when driving at night. Does not wear contact lenses. Has tried using a warm compress to cleanse her eye; has not tried any other OTC medications or home-remedies for symptoms. No fever, chills, headaches, or other constitutional complaints. REVIEW OF SYSTEMS: 10 systems reviewed negative with exception of history of present illness as listed above. TODAY'S VITALS: BP 97/69 Pulse 78 Temp 36.7 C (98.1 F) Resp 16 Ht 1.6 m (5' 3) Wt 56.7 kg (125 lb) SpO2 100% BMI 22.14 kg/m PHYSICAL EXAMINATION: General: Pleasant female, sitting comfortably on exam table, in no acute distress. Eyes: Pupils equal, round and reactive to light; no photophobia. Bilat conjunctiva diffusely injected (R eye very mild, L eye moderate) with scant purulent drainage noted. No ciliary flush; no grossly visible abnormality of pupils. EOMI intact without pain/limitation. No tenderness/edema/erythema or rashes/lesions noted to eyelids/periorbital areas. Visual acuity (uncorrected): 20/13 OU, 20/15 OD, 20/15 OS. HENT: Airway patent, Oral mucosa moist. No audible nasal congestion. Neck: Supple. No lymphadenopathy. Respiratory: Lungs are clear to auscultation; no wheezes, rhonchi, or rales. Respirations unlabored, Breath sounds are equal. Cardiovascular: Regular rate, Regular rhythm. Normal S1S2. No m/r/g. Neurologic: Alert and oriented, no focal deficits, no motor or sensory deficits. Cognition and Speech: Oriented, Speech clear and coherent. Psychiatric: Cooperative, Appropriate mood & affect. ---- Medical Decision Making LABORATORY or RADIOLOGICAL IMAGING ORDERS/RESULTS: None IMPRESSION/PLAN: Course: Worsening; stable 1. Acute conjunctivitis, unspecified acute conjunctivitis type, unspecified laterality (Primary) - polymyxin B sulf-trimethoprim (Polytrim) ophthalmic solution; Administer 1 drop into affected eye(s) 4 times a day for 7 days. Dispense: 10 mL; Refill: 0 Sxs/exam consistent with conjunctivitis. No red flags on exam. Discussed possibility of viral infection, but d/t potential for contagiousness, will start antibiotic eye drops (polytrim) today to cover for bacterial infection. Gentle cleansing with tear-free baby shampoo several times daily may also be helpful. Encouraged to otherwise avoid touching/rubbing eye as able. Discussed expectations and contagious precautions at length. Reviewed red flags to monitor for, counseled on instructions, risks, and potential adverse reactions of treatments, and advised to seek care if sxs not improving over the next 24-48 hours, or to ER or security compliance specialist CHUCK for any pain, increasing purulent discharge, changes in vision, photophobia, or other red flags. Patient verbalized understanding and agreed with plan of care; questions were encouraged and answered. VIRA Wolf Advanced Practice Provider [facility] documented in this encounter [facility] Work Phone: 01-26-2025 Radiology Diagnostic study note [facility] Imaging Services [address] [place] [address] Breast Limited Unilateral MR#: [id number] Acct: [id number] Name: MEGAN BEDOLLA Rep #: [id number] : 2000 F 24 From: Paulino Nunes MD PCP: Dr. Duglas Welch MD Status: REG CL I Study:Breast Limited Unilateral Date of Exam: 01/26/25 Exam# [id number] Ordering Dr: Rosemary Jovel PIE MAKER-Makayla PROCEDURE: BREAST LIMITED UNILATERAL REASON FOR EXAM: Right breast pain. History of mother with breast cancer. COMPARISON: Comparison is made with prior mammogram done earlier in the day. TECHNIQUE: Targeted right breast ultrasound. FINDINGS: RIGHT: Ultrasound targeted to the upper half of the right breast. The breast tissue appears sonographically normal. No cyst, solid mass, or suspicious shadowing. US/Breast Limited Unilateral IMPRESSION: No sonographic abnormality is seen. BI-RADS 1: NEGATIVE. RECOMMEND ANNUAL MAMMOGRAPHIC SCREENING. Reading Location: [id number] CC: BALDOMERO Jovel; Dr. Duglas Welch MD ~ Safety Lamp Keeper: Signed [facility] 01-15-2025 Note [facility] Pap Smear Specimen Adequacy January 16, 2025 12:59am Comment . Satisfactory for evaluation. No endocervical component is identified. Comment on above: Satisfactory for hal luation. No endocervical component is identified. 01-15-2025 Evaluation note Diagnosis Onset Date Resolution Breast pain acute December 2:25pm Encounter for routine gynecological examination noneactive January 15 025 2:25pm [facility] Work Phone: 1(205) 423-891312-10-2024 Evaluation + Plan note* Assessment & Plan Note - Marilee Mejia MD - 11/04/2024 9:21 AM ESTAssociated Problem(s): Family history of breast cancer - referral to genetics [facility] Work Phone: 1(667) 307-485412-10-2024 Evaluation + Plan note* Assessment & Plan Note - Marilee Mejia MD - 11/04/2024 9:21 AM ESTAssociated Problem(s): Ulcerative colitis without complications (Multi) Chronic, new to provider, stable -continue to follow up with GI [facility] Work Phone: 1(902) 314-778112-10-2024 Miscellaneous Notes* Assessment & Plan Note - Marilee Mejia MD - 11/04/2024 9:21 AM ESTAssociated Problem(s): Family history of breast cancer - referral to genetics * Assessment & Plan Note - Marilee Mejia MD - 11/04/2024 9:21 AM ESTAssociated Problem(s): Ulcerative colitis without complications (Multi) Chronic, new to provider, stable -continue to follow up with GI [facility]: 1(140) 735-300212-10-2024 History of Present illness Narrative* Marilee Mejia MD - 11/04/2024 8:20 AM EST Subjective: Megan Bedolla is a 24 y.o. 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 She's currently off of medication, mesalamine, since May. Scope looked okay recently off of medications. No symptoms. She was getting pap smears on the routine schedule. She notes that she has discoloration of her toe and felt that it was infected last month. Review of Systems Assessment/Plan: Megan Bedolla is a 24 y.o. female with a history of ulcerative colitis who presents to clinic today to address the following issues: 1. Encounter to establish care with new doctor 2. Family history of breast cancer Referral to Genetics 3. Needs flu shot Flu vaccine, trivalent, preservative free, no egg protein, age 18y+ (Flublok) 4. Ulcerative colitis without complications, unspecified location (Multi) I reviewed her labs and notes from prior pcp including normal lipid, hgb A1c, cbc and cmp. Problem List Items Addressed This Visit Family history of breast cancer Overview Mother with breast cancer in her 40s. No prior genetic testing Current Assessment & Plan - referral to genetics Relevant Orders Referral to Genetics Ulcerative colitis without complications (Multi) Overview Follows with GI in [place], [place]. Currently off of medication and stable. Current Assessment & Plan Chronic, new to provider, stable -continue to follow up with GI Other Visit Diagnoses Encounter to establish care with new doctor - Primary Needs flu shot Relevant Orders Flu vaccine, trivalent, preservative free, no egg protein, age 18y+ (Flublok) (Completed) There are no Patient Instructions on file for this visit. Follow up: 1 year or sooner as needed Return precautions discussed. An After Visit Summary was given to the patient. All questions were answered and patient in agreement with plan. Objective: BP 102/70 Pulse 70 Ht 1.6 m (5' 3) Wt 54.9 kg (121 lb) SpO2 98% BMI 21.43 kg/m Physical Exam Vitals and nursing note reviewed. Constitutional: General: She is not in acute distress. Appearance: Normal appearance. HENT: Head: Normocephalic and atraumatic. Mouth/Throat: Mouth: Mucous membranes are moist. Eyes: General: No scleral icterus. Right eye: No discharge. Left eye: No discharge. Extraocular Movements: Extraocular movements intact. Conjunctiva/sclera: Conjunctivae normal. Cardiovascular: Rate and Rhythm: Normal rate and regular rhythm. Pulmonary: Effort: Pulmonary effort is normal. No respiratory distress. Breath sounds: Normal breath sounds. Skin: General: Skin is warm and dry. Comments: Left 4th ring toe with thickened fungus Neurological: General: No focal deficit present. Mental Status: She is alert and oriented to person, place, and time. Psychiatric: Attention and Perception: Attention normal. Mood and Affect: Mood normal. Speech: Speech normal. Behavior: Behavior normal. Cognition and Memory: Cognition and memory normal. Judgment: Judgment normal. I spent 25 minutes in total time for this visit including all related clinical activities before, during, and after the visit excluding other billable activities/procedure time. Marilee Mejia MD documented in this [facility] Work Phone: 1(335) 387-655601-03-2023 Hospital Discharge instructions* Discharge Instructions* Katiuska Zheng RN - 11/28/2022 4:13 PM EST Follow up with your Primary Care Physician and Dr. Shirley Jeffery can be reached at [phone]. Endoscopy Discharge Instructions Your Procedure Was: Colonoscopy Follow-up Care Any problems call Dr. Shirley Jeffery Biopsies were done. Your results should be available in 1-2 weeks. If you have not heard back in 1-2 weeks contact your doctor. Call 911 if you have difficulty breathing or chest pain. 2. Call your doctor or go to the emergency room if you have: A fever greater than 101 or chills Intense or severe pain Heavy bleeding (a few streaks of blood are not unusual) Nausea and vomiting that does not go away Trouble swallowing Increased abdominal bloating Call your doctor with any other questions or problems. 3. Sedation You received sedation for your procedure today and it may take 24 hours to leave your system. You may have some drowsiness, lightheadedness, and may not remember your procedure. You should have an adult stay with you for 24 hours. Do not take any other sedatives or drink alcohol today. Do not drive or operate machinery (power tools, lawn mowers, etc.), cook, make business decisions or shop online for 24 hours. Although you may feel alert, your reactions may be slower. 4. Diet Eat lightly for your first meal. Avoid anything spicy or greasy until gas or bloating has been resolved. 5. If polyps were removed N/A 6. Post-Procedure Care If a red streak or a knot appears around the intravenous site, apply a warm wet cloth to the area 3-4 times for minutes for 24 hours. If this should persist longer than 2-3 days, call your doctor. 7. Activity You may resume normal activity in 24 hours. Do not return to work today. 8. Other Instructions/Information Resume current medications * Attachments The following attachments cannot be sent through Care Everywhere. * Colonoscopy: Post-op (Luxembourger) * Ulcerative Colitis (Luxembourger) documented in [id number] History of Present illness Narrative* Natacha Fernandez RN - 11/28/2022 3:[address] Jeffery, normal findings. Report given to MARY ANN Harp * Natacha Fernandez RN - 11/28/2022 3:36 PM EST Abdominal pressure applied. * Katiuska Zheng RN - 11/28/2022 2:30 PM EST Patient is adequate for discharge from PACU documented in this [facility]01-03-2023 Attending History and physical note* Shirley Jeffery MD - 11/28/2022 2:30 PM EST I have seen and evaluated the patient. I concur with the findings of the H&P. There are no significant changes. The patient is appropriate to proceed with the planned procedure. Shirley Jeffery MD Source Note - Alissa Heredia NP - 11/28/2022 2:30 PM EST Images from the original note were not included. Alissa Heredia NP [facility] Hospitalists History and Physical Same Day Surgery Patient Name:Megan Fuentes :2000 Admit Date: Physicians: Herlinda Bloom DO (PCP) Perpetual Assessment: Megan Fuentes is a 22 y.o. female with PMH ulcerative colitis who presented for colonoscopy procedure, per the request of Dr. Jeffery. [facility] has been asked to see the patient for a pre-operative risk assessment. ASSESSMENT AND PLAN Ulcerative Colitis - History of stress induced diarrhea suggesting possible IBS vs. Functional diarrhea - Presents today for colonoscopy procedure with Dr. Jeffery for routine surveillance of UC - Resume home mesalamine and Xulane Code Status: defer to primary service Comments/Disposition: Patient's medical records reviewed by me personally. I reviewed and summarized all pertinent radiological studies, EKGs, labs, and medical records (including those from outside hospitals when available and relevant to current clinical situation). HISTORY CC: Pre-Op Evaluation HPI: Megan Fuentes is a 22 y.o. female with PMH ulcerative colitis who presented today for colonoscopy procedure with Dr. Jeffery. Patient currently doing well with no acute complaints. Currently denies headaches, fever, chills, chest pain, shortness of breath, abdominal pain, nausea, vomiting, bowel, or bladder issues. Patient denies any history of CVA, CAD, CHF, COPD, asthma, CKD, or diabetes mellitus with insulin use. No formal history of obstructive sleep apnea. No history of bleeding or clotting disorders. Patient with a MET score greater than 4; patient denies significant shortness of breath or chest pain with climbing a flight of stairs. No recent use of blood thinners or NSAIDs. No issues with anesthesia in the past. Patient denies current use of tobacco products or illicit drug use. Denies current alcohol use.Patient is okay to proceed with planned procedure. ROS: > > > > > > > > > > The following system(s) were reviewed. Pertinent positive and negative findings are noted in the HPI. [x] Const [x] ENT [x] CV [x] [x] Musc [] Psych [x] Allergy [x] Eyes [x] Resp [x] GI [x] Neuro [] Skin [] Endo [x] Heme/Lymph PMH/PSH/SH/FH: Past Medical History: Diagnosis Date Ulcerative colitis (CMS/HCC) Past Surgical History: Procedure Laterality Date COLON SURGERY 2 weeks old correction of blockage COLONOSCOPY 2019 No family history on file. Social History Socioeconomic History Marital status: Spouse name: Not on file Number of children: Not on file Years of education: Not on file Highest education level: Not on file Occupational History Not on file Tobacco Use Smoking status: Never Smokeless tobacco: Never Substance and Sexual Activity Alcohol use: Yes Comment: rare occasionally Drug use: Never Sexual activity: Not on file Other Topics Concern Not on file Social History Narrative Not on file Allergy Information: I have reviewed the patient's allergies. Patient has no known allergies. Home Medications: Prior to Admission medications Medication Sig Start Date End Date Taking? Authorizing Provider mesalamine (LIALDA) 1.2 gram EC tablet 09/08/22 Historical Provider, MD Gonzalez 150-35 mcg/24 hr APPLY 1 PATCH BY TRANSDERMAL ROUTE ONCE WEEKLY FOR 3 WEEKS. DO NOT APPLY PATCH ON 4TH WEEK 09/25/22 Historical Provider, PHYSICAL EXAMINATION > > > > > > > > Vital Signs: Temp: 36.9 C (98.4 F) (11/28 1415) Heart Rate: 77 (11/28 1415) Resp: 16 (11/28 1415) BP: 108/70 (11/28 1415) GENERAL: Vitals stable. Appears in good mood. EYES: Conjunctiva clear ENT: Hearing intact, pharynx clear CV: RRR, no murmurs RESP: Clear to auscultation of lungs GI: Bowel sounds heard, soft, non-tender NEURO: Alert, Ox3. No obvious focal deficits noted PSYCH: Mood and affect are appropriate. Laboratory and Additional Data Acquired or Reviewed: [x] Laboratory [x] Radiology [x] Cardiology [x] Medications [x] Transcriptions [] Microbiology [x] Outside Records [] [facility] Phone: 1(737) 450-361201-03-2023 History and physical note* Alissa Heredia NP - 11/28/2022 2:30 PM EST Images from the original note were not included. Alissa Heredia NP [facility] Hospitalists History and Physical Same Day Surgery [id number]2000 Admit Date: Physicians: Herlinda Bloom DO (PCP) Perpetual Assessment: Megan Fuentes is a 22 y.o. female with PMH ulcerative colitis who presented for colonoscopy procedure, per the request of Dr. Jeffery. [facility] has been asked to see the patient for a pre-operative risk assessment. ASSESSMENT AND PLAN Ulcerative Colitis - History of stress induced diarrhea suggesting possible IBS vs. Functional diarrhea - Presents today for colonoscopy procedure with Dr. Jeffery for routine surveillance of UC - Resume home mesalamine and Xulane Code Status: defer to primary service Comments/Disposition: Patient's medical records reviewed by me personally. I reviewed and summarized all pertinent radiological studies, EKGs, labs, and medical records (including those from outside hospitals when available and relevant to current clinical situation). HISTORY CC: Pre-Op Evaluation HPI: Megan Fuentes is a 22 y.o. female with PMH ulcerative colitis who presented today for colonoscopy procedure with Dr. Jeffery. Patient currently doing well with no acute complaints. Currently denies headaches, fever, chills, chest pain, shortness of breath, abdominal pain, nausea, vomiting, bowel, or bladder issues. Patient denies any history of CVA, CAD, CHF, COPD, asthma, CKD, or diabetes mellitus with insulin use. No formal history of obstructive sleep apnea. No history of bleeding or clotting disorders. Patient with a MET score greater than 4; patient denies significant shortness of breath or chest pain with climbing a flight of stairs. No recent use of blood thinners or NSAIDs. No issues with anesthesia in the past. Patient denies current use of tobacco products or illicit drug use. Denies current alcohol use.Patient is okay to proceed with planned procedure. ROS: > > > > > > > > > > The following system(s) were reviewed. Pertinent positive and negative findings are noted in the HPI. [x] Const [x] ENT [x] CV [x] [x] Musc [] Psych [x] Allergy [x] Eyes [x] Resp [x] GI [x] Neuro [] Skin [] Endo [x] Heme/Lymph PMH/PSH/SH/FH: Past Medical History: Diagnosis Date Ulcerative colitis (CMS/HCC) Past Surgical History: Procedure Laterality Date COLON SURGERY 2 weeks old correction of blockage COLONOSCOPY 2019 No family history on file. Social History Socioeconomic History Marital status: Spouse name: Not on file Number of children: Not on file Years of education: Not on file Highest education level: Not on file Occupational History Not on file Tobacco Use Smoking status: Never Smokeless tobacco: Never Substance and Sexual Activity Alcohol use: Yes Comment: rare occasionally Drug use: Never Sexual activity: Not on file Other Topics Concern Not on file Social History Narrative Not on file Allergy Information: I have reviewed the patient's allergies. Patient has no known allergies. Home Medications: Prior to Admission medications Medication Sig Start Date End Date Taking? Authorizing Provider mesalamine (LIALDA) 1.2 gram EC tablet 09/08/22 Historical Provider, MD Gonzalez 150-35 mcg/24 hr APPLY 1 PATCH BY TRANSDERMAL ROUTE ONCE WEEKLY FOR 3 WEEKS. DO NOT APPLY PATCH ON 4TH WEEK 09/25/22 Historical Provider, PHYSICAL EXAMINATION > > > > > > > > Vital Signs: Temp: 36.9 C (98.4 F) (11/28 1415) Heart Rate: 77 (11/28 1415) Resp: 16 (11/28 1415) BP: 108/70 (11/28 1415) GENERAL: Vitals stable. Appears in good mood. EYES: Conjunctiva clear ENT: Hearing intact, pharynx clear CV: RRR, no murmurs RESP: Clear to auscultation of lungs GI: Bowel sounds heard, soft, non-tender NEURO: Alert, Ox3. No obvious focal deficits noted PSYCH: Mood and affect are appropriate. Laboratory and Additional Data Acquired or Reviewed: [x] Laboratory [x] Radiology [x] Cardiology [x] Medications [x] Transcriptions [] Microbiology [x] Outside Records [] [facility] Phone: 1([phone]) 482-496701-03-2023 History and physical note* Shirley Jeffery MD - 11/28/2022 2:30 PM EST I have seen and evaluated the patient. I concur with the findings of the H&P. There are no significant changes. The patient is appropriate to proceed with the planned procedure. Shirley Jeffery MD Source Note - Alissa Heredia NP - 11/28/2022 2:30 PM EST Images from the original note were not included. Alissa Heredia NP [facility] Hospitalists History and Physical Same Day Surgery Patient Name:Megan Fuentes :2000 Admit Date: Physicians: Herlinda Bloom DO (PCP) Perpetual Assessment: Megan Fuentes is a 22 y.o. female with PMH ulcerative colitis who presented for colonoscopy procedure, per the request of Dr. Jeffery. [facility] has been asked to see the patient for a pre-operative risk assessment. ASSESSMENT AND PLAN Ulcerative Colitis - History of stress induced diarrhea suggesting possible IBS vs. Functional diarrhea - Presents today for colonoscopy procedure with Dr. Jeffery for routine surveillance of UC - Resume home mesalamine and Xulane Code Status: defer to primary service Comments/Disposition: Patient's medical records reviewed by me personally. I reviewed and summarized all pertinent radiological studies, EKGs, labs, and medical records (including those from outside hospitals when available and relevant to current clinical situation). HISTORY CC: Pre-Op Evaluation HPI: Megan Fuentes is a 22 y.o. female with PMH ulcerative colitis who presented today for colonoscopy procedure with Dr. Jeffery. Patient currently doing well with no acute complaints. Currently denies headaches, fever, chills, chest pain, shortness of breath, abdominal pain, nausea, vomiting, bowel, or bladder issues. Patient denies any history of CVA, CAD, CHF, COPD, asthma, CKD, or diabetes mellitus with insulin use. No formal history of obstructive sleep apnea. No history of bleeding or clotting disorders. Patient with a MET score greater than 4; patient denies significant shortness of breath or chest pain with climbing a flight of stairs. No recent use of blood thinners or NSAIDs. No issues with anesthesia in the past. Patient denies current use of tobacco products or illicit drug use. Denies current alcohol use.Patient is okay to proceed with planned procedure. ROS: > > > > > > > > > > The following system(s) were reviewed. Pertinent positive and negative findings are noted in the HPI. [x] Const [x] ENT [x] CV [x] [x] Musc [] Psych [x] Allergy [x] Eyes [x] Resp [x] GI [x] Neuro [] Skin [] Endo [x] Heme/Lymph PMH/PSH/SH/FH: Past Medical History: Diagnosis Date Ulcerative colitis (CMS/HCC) Past Surgical History: Procedure Laterality Date COLON SURGERY 2 weeks old correction of blockage COLONOSCOPY 2019 No family history on file. Social History Socioeconomic History Marital status: Spouse name: Not on file Number of children: Not on file Years of education: Not on file Highest education level: Not on file Occupational History Not on file Tobacco Use Smoking status: Never Smokeless tobacco: Never Substance and Sexual Activity Alcohol use: Yes Comment: rare occasionally Drug use: Never Sexual activity: Not on file Other Topics Concern Not on file Social History Narrative Not on file Allergy Information: I have reviewed the patient's allergies. Patient has no known allergies. Home Medications: Prior to Admission medications Medication Sig Start Date End Date Taking? Authorizing Provider mesalamine (LIALDA) 1.2 gram EC tablet 09/08/22 Historical Provider, MD Gonzalez 150-35 mcg/24 hr APPLY 1 PATCH BY TRANSDERMAL ROUTE ONCE WEEKLY FOR 3 WEEKS. DO NOT APPLY PATCH ON 4TH WEEK 09/25/22 Historical Provider, PHYSICAL EXAMINATION > > > > > > > > Vital Signs: Temp: 36.9 C (98.4 F) (11/28 1415) Heart Rate: 77 (11/28 1415) Resp: 16 (11/28 1415) BP: 108/70 (11/28 1415) GENERAL: Vitals stable. Appears in good mood. EYES: Conjunctiva clear ENT: Hearing intact, pharynx clear CV: RRR, no murmurs RESP: Clear to auscultation of lungs GI: Bowel sounds heard, soft, non-tender NEURO: Alert, Ox3. No obvious focal deficits noted PSYCH: Mood and affect are appropriate. Laboratory and Additional Data Acquired or Reviewed: [x] Laboratory [x] Radiology [x] Cardiology [x] Medications [x] Transcriptions [] Microbiology [x] Outside Records [] Family * Alissa Heredia NP - 11/28/2022 2:30 PM EST Images from the original note were not included. Alissa Heredia NP [facility] Hospitalists History and Physical Same Day Surgery Patient Name:Megan Fuentes :2000 Admit Date: Physicians: Herlinda Bloom DO (PCP) Perpetual Assessment: Megan Fuentes is a 22 y.o. female with PMH ulcerative colitis who presented for colonoscopy procedure, per the request of Dr. Jeffery. [facility] has been asked to see the patient for a pre-operative risk assessment. ASSESSMENT AND PLAN Ulcerative Colitis - History of stress induced diarrhea suggesting possible IBS vs. Functional diarrhea - Presents today for colonoscopy procedure with Dr. Jeffery for routine surveillance of UC - Resume home mesalamine and Xulane Code Status: defer to primary service Comments/Disposition: Patient's medical records reviewed by me personally. I reviewed and summarized all pertinent radiological studies, EKGs, labs, and medical records (including those from outside hospitals when available and relevant to current clinical situation). HISTORY CC: Pre-Op Evaluation HPI: Megan Fuentes is a 22 y.o. female with PMH ulcerative colitis who presented today for colonoscopy procedure with Dr. Jeffery. Patient currently doing well with no acute complaints. Currently denies headaches, fever, chills, chest pain, shortness of breath, abdominal pain, nausea, vomiting, bowel, or bladder issues. Patient denies any history of CVA, CAD, CHF, COPD, asthma, CKD, or diabetes mellitus with insulin use. No formal history of obstructive sleep apnea. No history of bleeding or clotting disorders. Patient with a MET score greater than 4; patient denies significant shortness of breath or chest pain with climbing a flight of stairs. No recent use of blood thinners or NSAIDs. No issues with anesthesia in the past. Patient denies current use of tobacco products or illicit drug use. Denies current alcohol use.Patient is okay to proceed with planned procedure. ROS: > > > > > > > > > > The following system(s) were reviewed. Pertinent positive and negative findings are noted in the HPI. [x] Const [x] ENT [x] CV [x] [x] Musc [] Psych [x] Allergy [x] Eyes [x] Resp [x] GI [x] Neuro [] Skin [] Endo [x] Heme/Lymph PMH/PSH/SH/FH: Past Medical History: Diagnosis Date Ulcerative colitis (CMS/HCC) Past Surgical History: Procedure Laterality Date COLON SURGERY 2 weeks old correction of blockage COLONOSCOPY 2019 No family history on file. Social History Socioeconomic History Marital status: Spouse name: Not on file Number of children: Not on file Years of education: Not on file Highest education level: Not on file Occupational History Not on file Tobacco Use Smoking status: Never Smokeless tobacco: Never Substance and Sexual Activity Alcohol use: Yes Comment: rare occasionally Drug use: Never Sexual activity: Not on file Other Topics Concern Not on file Social History Narrative Not on file Allergy Information: I have reviewed the patient's allergies. Patient has no known allergies. Home Medications: Prior to Admission medications Medication Sig Start Date End Date Taking? Authorizing Provider mesalamine (LIALDA) 1.2 gram EC tablet 09/08/22 Historical Provider, MD Gonzalez 150-35 mcg/24 hr APPLY 1 PATCH BY TRANSDERMAL ROUTE ONCE WEEKLY FOR 3 WEEKS. DO NOT APPLY PATCH ON 4TH WEEK 09/25/22 Historical Provider, PHYSICAL EXAMINATION > > > > > > > > Vital Signs: Temp: 36.9 C (98.4 F) (11/28 1415) Heart Rate: 77 (11/28 1415) Resp: 16 (11/28 1415) BP: 108/70 (11/28 1415) GENERAL: Vitals stable. Appears in good mood. EYES: Conjunctiva clear ENT: Hearing intact, pharynx clear CV: RRR, no murmurs RESP: Clear to auscultation of lungs GI: Bowel sounds heard, soft, non-tender NEURO: Alert, Ox3. No obvious focal deficits noted PSYCH: Mood and affect are appropriate. Laboratory and Additional Data Acquired or Reviewed: [x] Laboratory [x] Radiology [x] Cardiology [x] Medications [x] Transcriptions [] Microbiology [x] Outside Records [] [facility] documented in [facility] encounter[id number] History of Present illness Narrative* Erin CurtisRobbi, PIE MAKER - 10/25/2022 2:20 PM EST Subjective Patient ID: Megan Fuentes is a 22 y.o. female. Pt presented to the clinic with a c/o a 4 day hx of a 3 day hx of uri/flu/covid sx and today she began experiencing right ear pain. She denies any associated elevated temps. She has attempted to treat her sx with robitussin DM which is not helping. She currently rates her pain as a 9/10. Earache There is pain in the right ear. This is a new problem. The current episode started today. The problem occurs constantly. The problem has been gradually worsening. There has been no fever. The pain isat a severity of 6/10. Associated symptoms include coughing, headaches, hearing loss and rhinorrhea. Pertinent negatives include no abdominal pain, diarrhea, ear discharge, neck pain, rash, sore throat or vomiting. The following portions of the patient's chart were reviewed in this encounter and updated as appropriate: Tobacco Allergies Meds Problems Med Hx Surg Hx OB Status Review of Systems Constitutional: Negative for activity change, appetite change, chills, diaphoresis, fatigue and fever. HENT: Positive for ear pain, hearing loss, rhinorrhea, sinus pressure and sinus pain. Negative for congestion, ear discharge, postnasal drip, sneezing and sore throat. Eyes: Negative for pain, discharge, redness and itching. Respiratory: Positive for cough. Negative for chest tightness, shortness of breath and wheezing. Cardiovascular: Negative for chest pain, palpitations and leg swelling. Gastrointestinal: Negative for abdominal pain, constipation, diarrhea, nausea and vomiting. Genitourinary: Negative for dysuria. Musculoskeletal: Negative for myalgias and neck pain. Skin: Negative for rash. Allergic/Immunologic: Negative for environmental allergies. Neurological: Positive for headaches. Negative for dizziness, light-headedness and numbness. Objective Physical Exam Vitals and nursing note reviewed. Constitutional: General: She is not in acute distress. Appearance: She is not diaphoretic. HENT: Head: Normocephalic and atraumatic. Right Ear: Ear canal and external ear normal. Tympanic membrane is erythematous. Left Ear: Tympanic membrane, ear canal and external ear normal. Nose: Right Sinus: Frontal sinus tenderness present. No maxillary sinus tenderness. Left Sinus: Frontal sinus tenderness present. No maxillary sinus tenderness. Mouth/Throat: Mouth: Mucous membranes are moist. Eyes: General: Right eye: No discharge. Left eye: No discharge. Conjunctiva/sclera: Conjunctivae normal. Cardiovascular: Rate and Rhythm: Normal rate and regular rhythm. Heart sounds: Normal heart sounds. Pulmonary: Effort: Pulmonary effort is normal. No respiratory distress. Breath sounds: Normal breath sounds. Abdominal: General: There is no distension. Musculoskeletal: General: Normal range of motion. Cervical back: Normal range of motion and neck supple. Skin: Findings: No rash. Neurological: General: No focal deficit present. Mental Status: She is alert. Psychiatric: Behavior: Behavior normal. Thought Content: Thought content normal. Judgment: Judgment normal. Procedures Assessment/Plan POC result reviewed Med therapy initiated. Pt to increase oral fluid intake Pt to return to care in the Emergency Room for persistent, concerning or worsening sx. Pt to followup with PCP in 1-2 days. Pt verbalized understanding regarding the plan of care. Acute right otitis media (Primary) - amoxicillin-clavulanate (Augmentin) 875-125 mg per tablet; Take 1 tablet by mouth 2 (two) times aday for 10 days. Dispense: 20 each; Refill: 0 Acute non-recurrent frontal sinusitis - amoxicillin-clavulanate (Augmentin) 875-125 mg per tablet; Take 1 tablet by mouth 2 (two) times aday for 10 days. Dispense: 20 each; Refill: 0 Nasal congestion - POC Influenza A/B manually resulted Acute cough - promethazine-dextromethorphan (PROMETHAZINE-DM) 6.25-15 mg/5 mL syrup; Take 5 mL by mouth 4 (four) times a day if needed for cough for up to 7 days. Dispense: 118 mL; Refill: 0 Encounter for screening for other viral diseases [facility]Reason for visit Narrative* Chief Complaint Admit Date PNOB Vitals & Education August 07, 2025 12:51pm [facility] Work Phone: Evaluation note* Diagnosis Acute right otitis media- Primary Acute non-recurrent frontal sinusitis Nasal congestion Other diseases of nasal cavity and sinuses Acute cough Encounter for screening for other viral diseases documented [facility] this encounter [facility]* Diagnosis 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 Colitis Other and unspecified noninfectious gastroenteritis and colitis documented in this encounter [facility] note* Diagnosis Encounter to establish care with new doctor- Primary Family history of breast cancer Family history of malignant neoplasm of breast Needs flu shot Need for prophylactic vaccination and inoculation against influenza Ulcerative colitis without complications, unspecified location (Multi) documented in this encounter [facility] Work Phone: evaluation note* Diagnosis Encounter to establish care with new doctor- Primary Family history of breast cancer Family history of malignant neoplasm of breast Needs flu shot Need for prophylactic vaccination and inoculation against influenza Ulcerative colitis without complications, unspecified location (Multi) Acute conjunctivitis, unspecified acute conjunctivitis type, unspecified laterality- Primary documented in this encounter [facility] Work Phone: Evaykation note* Diagnosis Encounter to establish care with new doctor- Primary Family history of breast cancer Family history of malignant neoplasm of breast Needs flu shot Need for prophylactic vaccination and inoculation against influenza Ulcerative colitis without complications, unspecified location (Multi) Sore throat- Primary Acute pharyngitis Fever, unspecified fever cause Vaginal yeast infection Candidiasis of vulva and vagina Strep pharyngitis documented in this encounter [facility] Work Phone: Evalucdrjk noteNo assessment information available [facility] Work Phone: Instructions* Attachments The following attachments cannot be sent through Care Everywhere. * Sinusitis (Luxembourger) * Otitis Media (Luxembourger) * Cough (Luxembourger) documented in this encounterDepartment [facility]reReason for referral (narrative)No reason for referral information availableOhio [facility] Work Phone: Summary Purpose Family History No Family History Records Found Relationship Condition Age at Onset Recorded Date/T jeremy mother Cerebrovascular accident (CVA) 59 Anxiety Unknown Arthritis Unknown Malignant neoplasm of breast 53 Depression Unknown Diabetes mellitus Unknown Hypertension Unknown High blood cholesterol Unknown father Hypertension Unknown Cardiac disease Unknown grandfather Alcoholism Unknown Malignant neoplasm Unknown grandmother Diabetes mellitus Unknown Myocardial infarction Unknown grandfather Malignant neoplasm Unknown grandmother Myocardial infarction Unknown aunt Malignant neoplasm of breast Unknown Relationship Condition Age at Onset Recorded Date/T jeremy mother Cerebrovascular accident (CVA) 59 Anxiety Unknown Arthritis Unknown Depression Unknown Diabetes mellitus Unknown Hypertension Unknown High blood cholesterol Unknown Malignant neoplasm of breast 53 father Hypertension Unknown Cardiac disease Unknown grandfather Malignant neoplasm Unknown Alcoholism Unknown Cerebrovascular accident (CVA) Unknown grandmother Diabetes mellitus Unknown Myocardial infarction Unknown grandmother Myocardial infarction Unknown aunt Malignant neoplasm of breast 61 uncle Hypertension Unknown Advance Directives No Advanced Directives Records FoundLatest Code Status on File Code Status Date Activated Date Inactivated Comments Full Code - Default 11/28/2022 2:42 PM 12/02/2022 3:49 AM This is order is used when code status has not been discussed with the patient, or code status is otherwise unknown/unconfirmed To update the patient's code status, place a code status order. Do not modify or discontinue any currently active code status orders. 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 Procedures COLONOSCOPY Anesthesia - MAC; [facility] Shirley Jeffery MD [address] [place] [address] [facility] Referral ID Status Reason Start Date Expiration Date V isits Requested Visits Authorized [id number] Authorized 10/20/2022 04/18/2023 1 1 Chief Complaint and Reason for Visit Chief Complaint Admit Date Annual (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) January 15, 2025 2:25pm MASTODYNIA January 26, 2025 2:02 pm Reason for Visit Admit Date Breast pain January 15, 2025 2:25pm Encounter for routine gynecological exam ination January 15, 2025 2:25pm Additional Source Comments INFORMATION SOURCE (unrecogn ized section and content) DATE CREATED AUTHOR 12/24/2021 [facility] DATE CREATED AUTHOR AUTHOR'S ORGANIZ ATION 10/26/2022 [facility] DATE CREATED AUTHOR AUTHOR'S ORGANIZ ATION 11/28/2022 [facility] DATE CREATED AUTHOR AUTHOR'S ORGANIZ ATION 04/11/2023 [facility] DATE CREATED AUTHOR AUTHOR'S ORGANIZ ATION 10/12/2024 [facility] DATE CREATED AUTHOR AUTHOR'S ORGANIZ ATION 03/08/2025 [facility] DATE CREATED AUTHOR AUTHOR'S ORGANIZ ATION 04/07/2025 [facility] DATE CREATED AUTHOR AUTHOR'S ORGANIZ ATION 08/15/2025 [facility] Reason for Visit (unrecogniz ed section and content) Reason Comments Nasal Congestion Earache Patient presents to clinic with c/o nasal/sinus pressure that started last Sunday and ear pain to right ear that started last night. Took home covid test last night with negative results. 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 Procedures COLONOSCOPY Anesthesia - MAC; [facility] Shirley Jeffery MD [address] [place] [address] [facility] [place] Referral ID Status Reason Start Date Expiration Date V isits Requested Visits Authorized [id number] Authorized 10/20/2022 04/18/2023 1 1 Reason Comments Establish Care Reason Comments Eye Pain Left eye irritation, red/ goopy x today Reason Comments Fever Complains of fever, sore throat, cough since Sunday Ordered Prescriptions (unrec ognized section and content) Prescription Sig Dispensed Refills Start Date End Da te promethazine-dextromethorp mora (PROMETHAZINE-DM) 6.25-15 mg/5 mL syrupIndications:Acute cough Take 5 mL by mouth 4 (four) times a day if needed for cough for up to 7 days. 118 mL 0 10/25/2022 11/01/2022 amoxicillin-clavulanate (Augmentin) 875-125 mg per tabletIndications:Acute right otitis media,Acute non-recurrent frontal sinusitis Take 1 tablet by mouth 2 (two) times a day for 10 days. 20 each 0 10/25/2022 11/04/2022 Care Teams (unrecognized sec tion and content) Crystallizer Operator Relationship Specialty Start Date End Date Herlinda Bloom, [address] [place] [id number] PCP - General Internal Medicine 11/30/22 Crystallizer Operator Relationship Specialty Start Date End Date Herlinda Bloom, DO [address] [facility] [address] [place] [address] PCP - General Internal Medicine 10/25/22 Crystallizer Operator Relationship Specialty Start Date End Date Marilee Mejia MD [address] [id number] PCP - General Family Medicine 10/03/24 Team Status: Active Member Role Status Dates Dr. Marilee Mejia MD Primary Care Provider Active Team Status: Inactive Member Role Status Dates Dr. Duglas Welch MD Primary Care Provider Active Start: January 15, 2025 End: January 15, 2025 Dr. Duglas Welch MD Referring Provider Active S tart: January 15, 2025 End: January 15, 2025 BALDOMERO Lee Attending Provider Active Start: January 15, 2025 End: January 15, 2025 Team Status: Inactive Member Role Status Dates Dr. Duglas Welch MD Primary Care Provider Active Start: January 15, 2025 End: January 15, 2025 BALDOMERO Lee Attending Provider Active Start: January 15, 2025 End: January 15, 2025 BALDOMERO Lee Referring Provider Active Start: January 15, 2025 End: January 15, 2025 Team Status: Inactive Member Role Status Dates Dr. Duglas Welch MD Primary Care Provider Active Start: January 26, 2025 End: January 26, 2025 BALDOMERO Lee Attending Provider Active Start: January 26, 2025 End: January 26, 2025 BALDOMERO Lee Referring Provider Active Start: January 26, 2025 End: January 26, 2025 Crystallizer Operator Relationship Specialty Start Date End Date Marilee Mejia MD [address] [address] PCP - General Family Medicine 10/03/24 Marilee Mejia MD [address] [address] PCP - [facility] PCP 12/27/24 Crystallizer Operator Relationship Specialty Start Date End Date Marilee Mejia MD [address] [address] PCP - General Family Medicine 10/03/24 Marilee Mejia MD [address] [address] PCP - [facility] PCP 12/27/24 Team Status: Active Member Role/Relationship Status Dates Dr. Marilee Mejia MD Primary Care Provider Active Team Status: Inactive Member Role/Relationship Status Dates Dr. Marilee Mejia MD Primary Care Provider Active Start: August 07, 2025 End: August 07, 2025 Dr. Marilee Mejia MD Referring Provider Active Start: August 07, 2025 End: August 07, 2025 Dr. Shelley Whitaker MD Attending Provider Active Start: August 07, 2025 End: August 07, 2025 Goals (unrecognized section and content) Goals may be documented in a n alternate sectionGoals may be documented in an alternate section FOR RECORDS PERTAINING TO PATIENTS WHO ARE OR HAVE BEEN ENROLLED IN A CHEMICAL DEPENDENCY/SUBSTANCEABUSE PROGRAM, SOME INFORMATION MAY BE OMITTED. This clinical summary was aggregated from multiple sources. Caution should be exercised in using it in the provision of clinical care. This summary normalizes information from multiple sources, and as a consequence, information in this document may materially change the coding, format and clinical context of patient data. In addition, data may be omitted in some cases. CLINICAL DECISIONS SHOULD BE BASED ON THE PRIMARY CLINICAL RECORDS. [employer] provides no warranty or guarantee of the accuracy or completeness of information in this document.
[2025-08-15 12:10] LABS: Hematocrit 39.3 % (37-47); Hemoglobin 13.9 g/dL (12.0-15.0); Immature Granulocytes Count 0.020 X10^3/uL (0.0-0.0); Mean Corp Hgb Conc 35.4 g/dL (32-36); Mean Corpuscular Volume 84.2 fL (81-99); Mean Platelet Vol. 9.0 fl (6.2-12.0); NRBC Flagged by Analyzer 0 % (0-5); Platelet Count 300 K/mm3 (150-450); RBC Distribution Width CV 12.2 % (11.6-14.6); RBC Distribution Width SD 37.0 fl (35.1-43.9); Red Blood Count 4.67 M/mm3 (4.2-5.4); White Blood Count 6.5 K/mm3 (4.4-11.0)
[2025-08-15 13:22] LABS: HIV Nonreactive (Nonreactive); Hepatitis B Surface Antigen Nonreactive (Nonreactive); Hepatitis C Antibody Nonreactive (Nonreactive); Syphilis Antibodies Nonreactive (Nonreactive)
[2025-08-15 13:25] LABS: hCG Titer Quant., Serum 102530 mIU/mL (<9 non-preg)
== END | disposition home or self-care (01) ==
LOC: LAB 11:26
PROVIDERS: PCP Family Medicine; Referring Provider Obstetrics & Gynecology; Visit Provider Obstetrics & Gynecology
DX: O09.90 Supervision of high risk pregnancy, unspecified, unspecified trimester (principal); O36.80X0 Pregnancy with inconclusive fetal viability, not applicable or unspecified; Z3A.00 Weeks of gestation of pregnancy not specified
CPT/HCPCS: 36415; 84702; 85025; 86703; 86762; 86780; 86803; 86850; 86900; 86901; 87086; 87340

== ENCOUNTER → 2025-08-21 | Outpatient (CLI) | payer OTHER, SELFPAY ==
--- OUTSIDE RECORDS SUMMARY | 2025-08-21 16:29 | XMS RPT_ITS | CCD ---
Author Organization [facility] Care Team Providers Care Compensation And Benefits Advisor Name Role Phone Shelley Whitaker MD Unavailable Herlinda Bloom DO Primary Care Provider [phone] HERLINDA BLOOM Primary Care Unavailable ERIN PRUITT Attending Unavaila ble LATIA SHIRLEY~[id number], LATIA SHIRLEY Attending Unavailable LATIA SHIRLEY~[id number], LATIA SHIRLEY Referring Unavailable HERLINDA BLOOM Primary Care Unavailable Herlinda Bloom DO Primary Care Provider BETTY RAY Referring Unavailable HERLINDA BLOOM Primary Care Unavailable HUI GOLDEN Attending Unavailable HUI GOLDEN Attending Unavailable CLEMENT SIMS Attending Unavailable Marilee Mejia MD Primary Care Provider Dr. Duglas Welch MD Primary Care Provider Dr. Duglas Welch MD Referring Provider [phone] Rosemary Vale Attending Provider Rosemary Vale Referring Provider Marilee Mejia MD Primary Care Provider Marilee Mejia MD Unavailable [phone] MARILEE MEJIA Primary Care Unavailable RODNEY RICKS Attending Unavailable MARILEE MEJIA Attending Unavailable MARILEE MEJIA Primary Care Unavailable MARILEE MEJIA Attending Unavailable MARILEE MEJIA Primary Care Unavailable Dr. Marilee Mejia MD Primary Care Provider [phone] Dr. Marilee Mejia MD Referring Provider Julianne SPARKS, Dr. Rosa Attending Provider Marcia Velasquez Attending Unavailable Marilee Mejia Primary Care Unavailable Marilee Mejia Referring Unavailable Rosemary Jovel Attending Unavailable Rosemary Jovel Referring Unavailable Rebekah, Duglas Primary Care Unavailable Rosemary Jovel Attending Unavailable Rosemary Jovel Referring Unavailable Rebekah, Duglas Primary Care Unavailable Shelley Whitaker Consulting Unavailable Shelley Whitaker Referring Unavailable Marilee Mejia Primary Care Unavailable VandIsabella Pavon Attending Unavailabl e Vande Velde, Isabella Referring Unavailabl e Yesusy, Marilee M Primary Care Unavailable Isabella Holcomb Attending Unavailabl e Rebekah, Duglas Referring Unavailable Rosemary Jovel Attending Unavailable Rebekah, Duglas Primary Care Unavailable Rebekah, Duglas Primary Care Unavailable Rebekah, Duglas Referring Unavailable Luis Rodgers Attending Unavailable Shelley Whitaker Attending Unavailable Marilee Mejia Primary Care Unavailable Marilee Mejia Referring Unavailable Medications Current Medications Medication Drug Class(es) [...] mg/ml oral solution (1 source) Phenothiazine, Uncompetitive A-tpyspm-B-aspartate Receptor Antagonist, Sigma-1 Agonist Start: 10-25-2022 End: 11-01-2022 take 5 mL by mouth four times daily for cough promethazine-dextromethorphan (PROMETHAZINE-DM) 6.25-15 mg/5 mL syrup Indications: Acute cough Take 5 mL by mouth 4 (four) times a day if needed for cough for up to 7 days. 118 mL 0 10/25/2022 11/01/2022 Active 168 hr ethinyl estradiol 0.12883 mg/hr / norelgestromin 0.08994 mg/hr transdermal system (10 sources) Progestin, Estrogen Start: 09-25-2022 apply 1 dose transd ermal route every week Xulane 150-35 mcg/24 hr APPLY 1 PATCH BY TRANSDERMAL ROUTE ONCE WEEKLY FOR 3 WEEKS. DO NOT APPLY PATCH ON 4TH WEEK 0 09/25/2022 Active Start: 12-01-2019 End: 10-03-2024 Norelgestromin-Ethin.Estradi ol (Xulane) 150-35 mcg/24 hr patch weekly Discontinued 1 NMA TD Q7D 3 1 November 22, 2021 2:00pm October 03, 2024 [...] mg PO Every 3 Days 2 0 0 October 03, 2024 1:00am January 15, [...] (DR/EC) Discontinued 2.4 g PO DAILY 30 0 June 07, 2019 12:00am October 03, 2024 10:40am take with food Multivit 21-Fxxl-Pjpvmi 1-Dha (Pnv-Dha) 27 mg iron-1 mg -300 mg capsule (1 source) Start: 08-07-2025 Multivit 41-Bndg-Hikcje 1-Dha (Pnv-Dha) 27 mg iron-1 mg -300 mg capsule Active NMA PO August 07, 2025 12:00am Welton (Nk) (1 source) Start: 01-15-2025 Welton (Nk) Active January 15, 2025 1:00am penicillin v potassium 500 mg oral tablet (1 source) Start: 04-06-2025 End: 04-16-2025 take 1 tablet by mouth twice daily penicillin v potassium (Veetid) 500 mg tablet Indications: Sore throat , Strep pharyngitis Take 1 tablet (500 mg) by mouth 2 times a day for 10 days. 20 tablet 04/06/2025 04/16/2025 Active polymyxin b 86137 unt/ml / trimethoprim 1 mg/ml ophthalmic solution [...] topical solution (3 sources) Start: 10-10-2024 End: 05-15-2025 nzhatgjajc-jxx-yqq zh-ijmpv-qle 8 % solution Apply small amount on the affected nail once a day 10/10/2024 04/06/2025 Discontinued (Med List Cleanup) ciprofloxacin 500 mg oral tablet (2 sources) Quinolone Antimicrobial Start: 06-07-2019 End: 12-01-2019 take 1 tablet by mouth twice daily Ciprofloxacin Hcl 500 MG tablet Discontinued 500 mg PO TWICE A DAY June 07, 2019 12:00am December 01, 2019 [...] tablet Discontinued 250 mg PO Q8H 15 0 June 07, 2019 12:00am December 01, 2019 11:35am NORETHIN ISIS-ETH ESTRAD-FE (2 sources) Start: 10-17-2017 take 1 tablet by mouth once daily .5 1.5-30 MG-MCG TABS One tablet by mouth daily NORETHIN ISIS-ETH ESTRAD-FE [id number] Shelley Whitaker MD ondansetron 4 mg disintegrating [...] Test Name Value Interpretation Reference Range Facility Urine Cultureon 08-16-2025 URC Culture exhibits no growth. Normal [facility] Comment on above: Performed By: #### L 3890.6102, M100.2200, L3890.6301, L509.8002, L3890.6006, L100.0100, BTS, L509.4006 ####[facility] [address] [place], [place], [id number] CBC W/Diff, Automatedon 07-28 Absolute Lymph 2.40 X10 3/uL Normal 0.83-4.51 [facility] Comment on above: Performed By: #### L 3890.6102, M100.2200, L3890.6301, L509.8002, L3890.6006, L100.0100, BTS, L509.4006 #### [facility] [address] [place], [place], [address] Absolute Neut 3.3 X10 3/uL Normal 2.0-7.7 [facility] Comment on above: Performed By: #### L 3890.6102, M100.2200, L3890.6301, L509.8002, L3890.6006, L100.0100, BTS, L509.4006 #### [facility] [address], [address] Basophils/100 WBC (Bld) 0.8 % Normal 0-1 [facility] Comment on above: Performed By: #### L 3890.6102, M100.2200, L3890.6301, L509.8002, L3890.6006, L100.0100, BTS, L509.4006 #### [facility] [address], [address] Eosinophils/100 WBC (Bld) 1.7 % Normal 0-5 [facility] Comment on above: Performed By: #### L 3890.6102, M100.2200, L3890.6301, L509.8002, L3890.6006, L100.0100, BTS, L509.4006 #### [facility] [address], [address] Erythrocyte distribution width (RBC) [Ratio] 12.2 % Normal 11.6-14.6 [facility] Comment on above: Performed By: #### L 3890.6102, M100.2200, L3890.6301, L509.8002, L3890.6006, L100.0100, BTS, L509.4006 #### [facility] [address], [address] Hematocrit (Bld) [Volume fraction] 39.3 % Normal 37-47 [facility] Comment on above: Performed By: #### L 3890.6102, M100.2200, L3890.6301, L509.8002, L3890.6006, L100.0100, BTS, L509.4006 #### [facility] [address], [address] Hemoglobin (Bld) [Mass/Vol] 13.9 g/dL Normal 12.0-15.0 [facility] Comment on above: Performed By: #### L 3890.6102, M100.2200, L3890.6301, L509.8002, L3890.6006, L100.0100, BTS, L509.4006 #### [facility] [address], [address] IG% 0.300 Normal 0.0-0.9 [facility] Comment on above: Result Comment: IG% - Immature Granulocytes (promyelocytes, myelocytes and metamyelocytes) > 1% indicates that a LEFT SHIFT is Present. Performed By: #### L 3890.6102, M100.2200, L3890.6301, L509.8002, L3890.6006, L100.0100, BTS, L509.4006 #### [facility] [address], [address] Lymphocytes/100 WBC (Bld) 37.1 % Normal 19-41 [facility] Comment on above: Performed By: #### L 3890.6102, M100.2200, L3890.6301, L509.8002, L3890.6006, L100.0100, BTS, L509.4006 #### [facility] [address], [address] MCH (RBC) [Entitic mass] 29.8 pg Normal 27.0-32.0 [facility] Comment on above: Performed By: #### L 3890.6102, M100.2200, L3890.6301, L509.8002, L3890.6006, L100.0100, BTS, L509.4006 #### [facility] [address], [address] MCHC (RBC) [Mass/Vol] 35.4 g/dL Normal 32-36 [facility] Comment on above: Performed By: #### L 3890.6102, M100.2200, L3890.6301, L509.8002, L3890.6006, L100.0100, BTS, L509.4006 #### [facility] [address], [address] MCV (RBC) [Entitic vol] 84.2 fL Normal 81-99 [facility] Comment on above: Performed By: #### L 3890.6102, M100.2200, L3890.6301, L509.8002, L3890.6006, L100.0100, BTS, L509.4006 #### [facility] [address], [address] Monocytes/100 WBC (Bld) 8.7 % Normal 0-10 [facility] Comment on above: Performed By: #### L 3890.6102, M100.2200, L3890.6301, L509.8002, L3890.6006, L100.0100, BTS, L509.4006 #### [facility] [address], [address] Neutrophils/100 WBC (Bld) 51.4 % Normal 47-70 [facility] Comment on above: Performed By: #### L 3890.6102, M100.2200, L3890.6301, L509.8002, L3890.6006, L100.0100, BTS, L509.4006 #### [facility] [address], [address] Nucleated RBC (Bld) [#/Vol] 0 10*3/uL Normal 0-5 [facility] Comment on above: Performed By: #### L 3890.6102, M100.2200, L3890.6301, L509.8002, L3890.6006, L100.0100, BTS, L509.4006 #### [facility] [address], [address] Platelet mean volume (Bld) [Entitic vol] 9.0 fL Normal 6.2-12.0 [facility] Comment on above: Performed By: #### L 3890.6102, M100.2200, L3890.6301, L509.8002, L3890.6006, L100.0100, BTS, L509.4006 #### [facility] [address] [place], [address] Platelets (Bld) [#/Vol] 300 10*3/uL Normal 150-450 [facility] Comment on above: Performed By: #### L 3890.6102, M100.2200, L3890.6301, L509.8002, L3890.6006, L100.0100, BTS, L509.4006 #### [facility] [address], [address] RBC (Bld) [#/Vol] 4.67 10*6/uL Normal 4.2-5.4 [facility] Comment on above: Performed By: #### L 3890.6102, M100.2200, L3890.6301, L509.8002, L3890.6006, L100.0100, BTS, L509.4006 #### [facility] [address], [address] RDW SD 37.0 fl Normal 35.1-43.9 [facility] Comment on above: Performed By: #### L 3890.6102, M100.2200, L3890.6301, L509.8002, L3890.6006, L100.0100, BTS, L509.4006 #### [facility] [address] [place], [place], [address] WBC (Bld) [#/Vol] 6.5 10*3/uL Normal 4.4-11.0 [facility] Comment on above: Performed By: #### L 3890.6102, M100.2200, L3890.6301, L509.8002, L3890.6006, L100.0100, BTS, L509.4006 #### [facility] [address], [address] HIVon 08-15-2025 HIV Non-Reactive Normal Nonreactive [facility] Comment on above: Result Comment: Non- Reactive Reactive Repeatedly reactive samples must be confirmed according to CDC recommended confirmatory algorithms. The subresults for either HIVAG or AHIV can be used as an aid in the selection of the confirmation algorithm for reactive samples. Send out specimens with Reactive results to [facility] for confirmation. Order the HIV antibody detection and differentiation: [id number] Performed By: #### L 3890.6102, M100.2200, L3890.6301, L509.8002, L3890.6006, L100.0100, BTS, L509.4006 #### [facility] [address] [place], [place], [address] Hepatitis C Antibodyon 08-15 Hepatitis C Ab Non-Reactive Normal Nonreactive [facility] Comment on above: Result Comment: Reac tive: Presumptive evidence of antibodies to HCV. Follow CDC recommendations for supplemental testing. Non-Reactive: Antibodies to HCV were not detected; does not exclude the possibility of exposure to HCV Reactive Results are presumptive evidence of antibodies to HCV. Follow CDC recommendations for supplemental testing. Order confirmation testing: HCV Quant by PCR testing - HCVPCR lc#[id number] Non Reactive: < 0.8 Equivocal: >/= 0.8 to < 1.0 Reactive: >/= 1.0 The CDC requires that a reactive/equivocal HCV antibody result be sent out for confirmation. HCV Quant by PCR testing. Performed By: #### L 3890.6102, M100.2200, L3890.6301, L509.8002, L3890.6006, L100.0100, BTS, L509.4006 ####[facility] [address] [place], [address] L3890.6102on 08-15-2025 HEP B Surf Ag Non-Reactive Normal Nonreactive [facility] Comment on above: Result Comment: Reac tive: Presumptive evidence of HBV. Repeatedly reactive samples must be confirmed using a neutralization test ([employer] HBsAg Confirmatory Test) Non-Reactive: HBsAg not detected; does not exclude the possibility of exposure to HBV Performed By: #### L 3890.6102, M100.2200, L3890.6301, L509.8002, L3890.6006, L100.0100, BTS, L509.4006 ####[facility] [address] [place], [address] L509.4006on 08-15-2025 Rubella IgG REAC Normal Nonreactive [facility] Comment on above: Result Comment: Anti body Result: Interpretation Non-Reactive: Non-Immune Reactive: Immune The following results were obtained with the [employer] Rubella IgG assay. Results from assays of other manufacturers cannot be used interchangeably. Performed By: #### L 3890.6102, M100.2200, L3890.6301, L509.8002, L3890.6006, L100.0100, BTS, L509.4006 #### [facility] [address], [address] Syphilis Antibodieson 2024 Syphilis Abs Non-Reactive Normal Nonreactive [facility] Comment on above: Performed By: #### L 3890.6102, M100.2200, L3890.6301, L509.8002, L3890.6006, L100.0100, BTS, L509.4006 #### [facility] [address] [place], [address] Type AND Screenon 08-15-2025 Ab SCREEN GEL Negative Normal [facility] Comment on above: Order Comment: PN Performed By: #### L 3890.6102, M100.2200, L3890.6301, L509.8002, L3890.6006, L100.0100, BTS, L509.4006 #### [facility] [address], [address] ABO and Rh group Nom (Bld) Blood group O Rh(D) positive Normal [facility] Comment on above: Order Comment: PN Performed By: #### L 3890.6102, M100.2200, L3890.6301, L509.8002, L3890.6006, L100.0100, BTS, L509.4006 #### [facility] [address] [place], [address] hCG Titer Quant., Serumon HCG QUANT. 591681 mIU/mL High <9 non-[facility] Comment on above: Result Comment: Gest ational Age 0.2-1 Week: 5-50 mIU/mL 1-2 Weeks: 50-500 mIU/mL 2-3 Weeks: 100-5000 mIU/mL 3-4 Weeks: 500-10,000 mIU/mL 4-5 Weeks:1000-50,000 mIU/mL 5-6 Weeks: 10,000-100,000 mIU/mL 6-8 Weeks: 15,000-200,000 mIU/mL 2-3 Months:10,000-100,000 mIU/mL Performed By: #### L 700.8000 #### [facility] [address], [address] hCG Titer Quant., Serumon HCG QUANT. 30322 mIU/mL High <9 non-preg [facility] Comment on above: Result Comment: Gest ational Age 0.2-1 Week: 5-50 mIU/mL 1-2 Weeks: 50-500 mIU/mL 2-3 Weeks: 100-5000 mIU/mL 3-4 Weeks: 500-10,000 mIU/mL 4-5 Weeks:1000-50,000 mIU/mL 5-6 Weeks: 10,000-100,000 mIU/mL 6-8 Weeks: 15,000-200,000 mIU/mL 2-3 Months:10,000-100,000 mIU/mL Performed By: #### L 700.8000 ####[facility] [address] [place], [address] Office Visit Reporton 2024 Office Visit Report [facility] [address] [address] OFFICE VISIT Date of Service: 08/07/25 MR#: [id number] Acct: [id number] Patient: MEGAN BEDOLLA Rep #: [id number] : 2000 Provider: Dr. Shelley castaneda MD Age/Sex: 25/F Location: [facility] [place] Status: Signed Intake Vital Signs 01/15/25 14:29 08/07/25 14:27 Height 5 ft 3 in 5 ft 3 in Weight: 124 lb 123 lb 7 oz BMI 21.9 21.9 BP 110/74 104/64 Blood Pressure Location Rt brachial Position Sitting Intake Visit Reasons: PNOB Vitals Education Chief Complaint: mild nausea each afternoon. Trying OTC. Brick Veneer Maker Required: No Is patient in pain?: No [...] Miki Orders: Orders CBC W/Diff, Automated 08/07/25 O - Supervision of high risk , unspecified, unspecified trimester Type Screen 08/07/25 O. - Supervision of high risk , unspecified, unspecified trimester Rubella IgG 08/07/25 O. - Supervision of high risk , unspecified, unspecified trimester Hepatitis C Antibody 08/07/25 O. - Supervision of high risk , unspecified, unspecified trimester Hepatitis B Surface Antigen 08/07/25 O. - Supervision of high risk , unspecified, unspecified trimester Culture, Urine 08/07/25 O. - Supervision of high risk , unspecified, unspecified trimester Syphilis Antibodies 08/07/25 O. - Supervision of high risk , unspecified, unspecified trimester Chlamydia/GC GEOVANNA aptima 08/07/25 O. - Supervision of high risk , unspecified, unspecified trimester HIV 08/07/25 O09. - Supervision of high risk , unspecified, unspecified trimester 08/08/25 0146 Date Shelley Powell Signature: Date (if applicable) CC: Normal [facility] POCT Influenza A/B manually resultedOrdered By: Veronica Camp on 04-06-2025 POC Rapid Influenza A Negative Negative [facility] POC Rapid Influenza B Negative Negative [facility] POCT Rapid Strep A manually resultedon 04-06-2025 Interpretation and review of laboratory results Abnormal [facility] Work Phone: POC Rapid Strep Positive Abnormal Negative [facility] Work Phone: [facility] Work Phone: Breast Limited Unilateralon 01-26-2025 Breast Limited Unilateral [facility] Services [address] [place] [address] Breast Limited Unilateral MR#: [id number] Acct: [id number] Name: MEGAN BEDOLLA Rep #: [id number] : 2000 F 24 From: Markel wolff MD PCP: Dr. Duglas Welch MD Status: REG CLI Study: Breast Limited Unilateral Date of Exam: Exam# [id number] Ordering Dr: Rosemary Jovel PROCEDURE: BREAST LIMITED UNILATERAL REASON FOR EXAM: [...] NEGATIVE. RECOMMEND ANNUAL MAMMOGRAPHIC SCREENING. Reading Location: [id number] CC: MATERIAL EXPEDITOR-Makayla Jovel; Dr. Duglas Welch MD Occupational Therapist Assistants: Signed Normal [facility] Breast imaging reportOrdered By: Markel Nunes on 01-26-2025 Study report [facility] Services [address] [place] [place] [address] DIAG MAMM W/CAD, BILAT MR#: [id number] Acct: [id number] Name: MEGAN BEDOLLATH Rep #: [id number] : 2000 F 24 From: Paulino Nunes MD PCP: Dr. Duglas Welch MD Status: REG CL I Study:DIAG MAMM W/CAD, BILAT Date of Exam: 01/26/25 Exam# [id number] Ordering Dr: Rosemary Jovel PROCEDURE: DIAG MAMM [...] EVALUATION. Follow-up code: Ultrasound follow-up. Reading Location: [id number] CC: BALDOMERO Jovel; Dr. Duglas Welch MD ~ Occupational Therapist Assistants: Signed [facility] DIAG MAMM W/CAD, BILATon DIAG MAMM W/CAD, BILAT [facility] Imaging Services [address] [place] [address] [id number] DIAG MAMM W/CAD, BILAT MR#: [id number] Acct: [id number] Name: MEGAN BEDOLLA Rep #: [id number] : 2000 F 24 From: Markel wolff MD PCP: Dr. Duglas Welch MD Status: [facility] Study: DIAG MAMM W/CAD, BILAT Date of Exam: 01/26/25 Exam# [id number] Ordering Dr: Rosemary Jovel MATERIAL EXPEDITORYvette PROCEDURE: DIAG MAMM W/CAD, BILAT REASON FOR [...] EVALUATION. Follow-up code: Ultrasound follow-up. Reading Location: [id number] CC: BALDOMERO Jovel; Dr. Duglas Welch MD Occupational Therapist Assistants: Signed Normal [facility] PAP I-G w/rfx hrHPV-Aptimaon 01-20-2025 ADEQ Comment Normal . [facility] Comment on above: Order Comment: Speci men Comment: [id number] Specimen Comment: Source.............Cervix;Endocervix Specimen Comment: No. of containers..01 ThinPrep Vial Result Comment: Sati sfactory for evaluation. No endocervical component is identified. Performed By: #### L 7400.0353 #### [facility] [address], [address] COMM . Normal . [facility] Comment on above: Order Comment: Speci men Comment: [id number] Specimen Comment: Source.............Cervix;Endocervix Specimen Comment: No. of containers..01 ThinPrep Vial Performed By: #### L 7400.0353 #### [facility] [address] [place], [place], [address] COMMENT Comment Normal . [facility] Comment on above: Order Comment: Speci men Comment: [id number] Specimen Comment: Source.............Cervix;Endocervix Specimen Comment: No. of containers..01 ThinPrep Vial Result Comment: This liquid based ThinPrep(R) pap test was screened with the use of an image guided system. Performed By: #### L 7400.0353 #### [facility] [address] [place], [place], [address] DIAG Comment Normal . [facility] Comment on above: Order Comment: Speci men Comment: [id number] Specimen Comment: Source.............Cervix;Endocervix Specimen Comment: No. of containers..01 ThinPrep Vial Result Comment: NEGA TIVE FOR INTRAEPITHELIAL LESION OR MALIGNANCY. Performed By: #### L 7400.0353 #### [facility] [address] [place], [place], [address] HPV RFLX Comment Normal . [facility] Comment on above: Order Comment: Speci men Comment: [id number] Specimen Comment: Source.............Cervix;Endocervix Specimen Comment: No. of containers..01 ThinPrep Vial Result Comment: The HPV DNA reflex criteria were not met with this specimen result therefore, no HPV testing was performed. Performed at: [address] [id number] Sales Apprentice: Jackie Koenig MD, Phone: [phone] Performed By: #### L 7400.0353 #### [facility] [address], [address] PAPSMR Comment Normal . [facility] Comment on above: Order Comment: Speci men Comment: [id number] Specimen Comment: Source.............Cervix;Endocervix Specimen Comment: No. of [...] occur. Performed By: #### L 7400.0353 #### [facility] [address] [place], [place], [address] PERFORM Comment Normal . [facility] Comment on above: Order Comment: Speci men Comment: [id number] Specimen Comment: Source.............Cervix;Endocervix Specimen Comment: No. of containers..01 ThinPrep Vial Result Comment: Sabrina Haque, Last Inserter (ASCP) Performed By: #### L 7400.0353 #### [facility] [address] [place], [place], [id number] Shine Worker Cyto stain Nom (C vx/Vag) [ID]Ordered By: Rosemary Jovel on 01-15-2025 Pap Smear Performed By Comment . [facility] Comment on above: Nicol Haque, Cyto technologist (ASCP) Cytology report Cyto stain D oc (Cvx/Vag)Ordered By: Rosemary Jovel on 01-15-2025 Thin Prep Pap Smear Comment . [facility] Comment on above: The Pap smear is a s creening test designed to aid in thedetection of premalignant and malignant conditions of theuterine cervix. It is not a diagnostic procedure andshould not be used as the sole means of detecting cervicalcancer. Both false-positive and false-negative reports dooccur. Image-guided ThinPrep PapOrd ered By: Rosemary Jovel on 01-15-2025 Pap Smear Note Comment . [facility] Comment on above: This liquid based Th inPrep(R) pap test was screened withthe use of an image guided system. Image-guided liquid-based Pa pOrdered By: Rosemary Jovel on 01-15-2025 Pap Smear Diagnosis Comment . [facility] Comment on above: NEGATIVE FOR INTRAEP ITHELIAL LESION OR MALIGNANCY. Image-guided liquid-based ce rvical Pap w high-risk HPV+reflex to HPV 16+18Ordered By: Rosemary Jovel on 01-15-2025 Human Papillomavirus Screen Comment . [facility] Comment on above: The HPV DNA reflex c harlan were not met with this specimenresult therefore, no HPV testing was performed.Performed at: [facility] [facility] [place] [id number] Director: Jackie Koenig MD, Phone: [phone] Structured Cabling Technician Office Visit Reporton 01-15-2025 Structured Cabling Technician Office Visit Report 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 Female Reproductive History Last Menstrual Period: 12/28/24 [...] Inspection: nor (more content not included)... Normal [facility] Service comment (Unsp spec) [Interp]Ordered By: Rosemary Jovel on 01-15-2025 Pap Smear Comment (3) . . [facility] Visit Reporton 1 12-03-2023 Urgent Care Visit Report [facility] [address] , [address] [place] [address] OFFICE VISIT Date of Service: 10/03/24 MR#: [id number] Acct: [id number] Name: MEGAN BEDOLLA Rep #: [id number] : 2000 Provider: MEAGHAN Álvarez Age/Sex: 24/F Location: [facility] [place] Status: Signed Intake Vital Signs 12/02/20 10:57 [...] L FT Chief Complaint: LT TOENAIL INFECTED Brick Veneer Maker Required: No Accompanied by: Self Is patient [...] chills, sweats. No other associated symptoms or alleviating/aggrava ting factors. ROS Const Constitutional: No other (6 [...] You Signature: Date (if applicable) CC: Normal [facility] CBC WITH AUTO DIFFERENTIALon 05-22-2024 BASO # 0.0 K CUMM Normal 0.0-0.2 [facility] Comment on above: Order Comment: Locat ion: Performed By: #### L [id number] #### CHANELL GOLDEN ([id number]) [facility] ([facility]) [address] [place] [address] Basophils/100 WBC (Bld) 0.8 % Normal 0.0-3.0 [facility] Comment on above: Order Comment: Locat ion: Performed By: #### L [id number] #### CHANELL GOLDEN ([id number]) [facility] ([facility]) [address] [place] [address] Eosinophils (Bld) [#/Vol] 0.19 10*3/uL Normal 0.00-0.40 [facility] Comment on above: Order Comment: Locat ion: Performed By: #### L [id number] #### CHANELL GOLDEN ([id number]) [facility] ([facility] [address] [place] [address]67 Eosinophils/100 WBC (Bld) 3.6 % Normal 0.0-7.0 [facility] Comment on above: Order Comment: Locat ion: Performed By: #### L [id number] #### CHANELL GOLDEN ([id number]) [facility] ([facility] [address] [place] [address]61 Erythrocyte distribution width (RBC) [Ratio] 12.9 % Normal 11.5-15.5 [facility] Comment on above: Order Comment: Locat ion: Performed By: #### L [id number] #### CHANELL GOLDEN ([id number]) [facility] ([facility]) [address] [place] [address] Hematocrit (Bld) [Volume fraction] 40.6 % Normal 37.0-47.0 [facility] Comment on above: Order Comment: Locat ion: Performed By: #### L [id number] #### CHANELL GOLDEN ([id number]) [facility] ([facility]) [address] [place] [address]261 Hemoglobin (Bld) [Mass/Vol] 13.7 g/dL Normal 11.5-15.5 [facility] Comment on above: Order Comment: Locat ion: Performed By: #### L [id number] #### CHANELL GOLDEN ([id number]) [facility] ([facility]) [address] [place] [address] IMMGRN# 0.0 K CUMM Normal 0.0-0.3 [facility] Comment on above: Order Comment: Locat ion: Performed By: #### L [id number] #### CHANELL GOLDEN ([id number]) [facility] ([facility]) [address] [place] [address] 19466 IMMGRN% 0.2 % Normal 0.0-3.0 [facility] Comment on above: Order Comment: Locat ion: Performed By: #### L [id number] #### CHANELL GOLDEN ([id number]) [facility] ([facility]) [address] [place] [address] LYMPH # 2.5 K CUMM Normal 0.7-4.5 [facility] Comment on above: Order Comment: Locat ion: Performed By: #### L [id number] #### CHANELL GOLDEN ([id number]) [facility] ([facility]) [address] [place] [address] 56567 Lymphocytes/100 WBC (Bld) 48.6 % High 14.0-46.0 [facility] Comment on above: Order Comment: Locat ion: Performed By: #### L [id number] #### CHANELL GOLDEN ([id number]) [facility] ([facility]) [address] [address] MCH (RBC) [Entitic mass] 28.7 pg Normal 27.0-31.0 [facility] Comment on above: Order Comment: Locat ion: Performed By: #### L [id number] #### CHANELL GOLDEN ([id number]) [facility] ([facility]) [address] [place] [address]143 MCHC (RBC) [Mass/Vol] 33.7 g/dL Normal 32.0-36.0 [facility] Comment on above: Order Comment: Locat ion: Performed By: #### L [id number] #### CHANELL GOLDEN ([id number]) [facility] ([facility]) [address] [place] [address] 46357 MCV (RBC) [Entitic vol] 84.9 fL Normal 78.0-100.0 [facility] Comment on above: Order Comment: Locat ion: Performed By: #### L [id number] #### CHANELL GOLDEN ([id number]) [facility] ([facility]) [address] [place] [address]1998 MONO # 0.5 K CUMM Normal 0.1-1.0 [facility] Comment on above: Order Comment: Locat ion: Performed By: #### L [id number] #### CHANELL GOLDEN ([id number]) [facility] ([facility]) [address] [place] [address] 05988 Monocytes/100 WBC (Bld) 9.4 % Normal 4.0-13.0 [facility] Comment on above: Order Comment: Locat ion: Performed By: #### L [id number] #### CHANELL GOLDEN ([id number]) [facility] ([facility]) [address] [place] [address] DEXTER # 2.0 K CUMM Normal 1.8-7.8 [facility] Comment on above: Order Comment: Locat ion: Performed By: #### L [id number] #### CHANELL GOLDEN ([id number]) [facility] ([facility]) [address] [address] Neutrophils/100 WBC (Bld) 37.4 % Low 40.0-74.0 [facility] Comment on above: Order Comment: Locat ion: Performed By: #### L [id number] #### CHANELL GOLDEN ([id number]) [facility] ([facility]) [address] [place] [address] 18348 Nucleated RBC/100 WBC (Bld) [Ratio] 0.0 % Normal 0.0-0.9 [facility] Comment on above: Order Comment: Locat ion: Performed By: #### L [id number] #### CHANELL GOLDEN ([id number]) [facility] ([facility]) [address] [place] [address] 52166 Platelet mean volume (Bld) [Entitic vol] 9.5 fL Normal 8.9-12.6 [facility] Comment on above: Order Comment: Locat ion: Performed By: #### L [id number] #### CHANELL GOLDEN ([id number]) [facility] ([facility]) [address] [place] [address] 84935 PLT 292 K CUMM Normal 130-400 [facility] Comment on above: Order Comment: Locat ion: Performed By: #### L [id number] #### CHANELL GOLDEN ([id number]) [facility] ([facility]) [address] [place] [address] 48152 RBC 4.8 M CUMM Normal 3.8-5.1 [facility] Comment on above: Order Comment: Locat ion: Performed By: #### L [id number] #### CHANELL GOLDEN ([id number]) [facility] ([facility]) [address] [place] [address] 39833 WBC 5.2 K CUMM Normal 3.8-10.6 [facility] Comment on above: Order Comment: Locat ion: Performed By: #### L [id number] #### CHANELL GOLDEN ([id number]) [facility] ([facility]) [address] [facility], [address] [address] COMPREHENSIVE METABOLIC PANE Homero 05-22-2024 A/G RATIO 2.2 Normal [facility] Comment on above: Order Comment: Locat ion: Performed By: #### Miki PORRAS, [id number] #### CHANELL GOLDEN ([id number]) [facility] ([facility]) [address] [address] Albumin [Mass/Vol] 4.8 g/dL Normal 3.2-4.8 [facility] Comment on above: Order Comment: Locat ion: Performed By: #### Miki PORRAS, [id number] #### CHANELL GOLDEN ([id number]) [facility] ([facility]) [address] [place] [address] ALP [Catalytic activity/Vol] 59 U/L Normal 40-127 [facility] Comment on above: Order Comment: Locat ion: Performed By: #### Miki PORRAS, [id number] #### CHANELL GOLDEN ([id number]) [facility] ([facility]) [address] [place] [address]73 ALT [Catalytic activity/Vol] 11 U/L Normal 10-49 [facility] Comment on above: Order Comment: Locat ion: Performed By: #### Miki PORRAS, [id number] #### CHANELL GOLDEN ([id number]) [facility] ([facility]) [address] [place] [address] AST [Catalytic activity/Vol] 16 U/L Normal <=34 [facility] Comment on above: Order Comment: Locat ion: Performed By: #### Miki PORRAS, [id number] #### CHANELL GOLDEN ([id number]) [facility] ([facility]) [address] [place] [address]19 B/C RATIO 13.8 Normal 10.0-28.6 [facility] Comment on above: Order Comment: Locat ion: Performed By: #### Miki PORRAS, [id number] #### CHANELL GOLDEN ([id number]) [facility] ([facility]) [address] [facility], [address] [place] [address] Bilirubin [Mass/Vol] 0.8 mg/dL Normal 0.3-1.2 [facility] Comment on above: Order Comment: Locat ion: Performed By: #### Miki PORRAS, [id number] #### CHANELL GOLDEN ([id number]) [facility] ([facility]) [address] [address] Calcium [Mass/Vol] 9.3 mg/dL Normal 8.7-10.4 [facility] Comment on above: Order Comment: Locat ion: Performed By: #### Miki PORRAS, LAB18 #### CHANELL GOLDEN ([id number]) [facility] ([facility]) [address] [address] Chloride [Moles/Vol] 107 mmol/L Normal 98-107 [facility] Comment on above: Order Comment: Locat ion: Performed By: #### Miki PORRAS, LAB18 #### CHANELL GOLDEN ([id number]) [facility] ([facility]) [address] [address] CO2 [Moles/Vol] 28 mmol/L Normal 20-31 [facility] Comment on above: Order Comment: Locat ion: Performed By: #### Miki PORRAS, LAB18 #### CHANELL GOLDEN ([id number]) [facility] ([facility]) [address] [address] Creatinine [Mass/Vol] 0.8 mg/dL Normal 0.6-1.0 [facility] Comment on above: Order Comment: Locat ion: Performed By: #### L 17, LAB18 #### CHANELL GOLDEN ([id number]) [facility] ([facility]) [address] [address] GFR 104.4 mL/min/1.73m*2 Normal >=60.0 [facility] Comment on above: Order Comment: Locat ion: Performed By: #### L [id number], LAB18 #### CHANELL GOLDEN ([id number]) [facility] ([facility]) [address] [address] Globulin (S) [Mass/Vol] 2.2 g/dL Normal [facility] Comment on above: Order Comment: Locat ion: Performed By: #### Miki PORRAS, LAB18 #### CHANELL GOLDEN ([id number]) [facility] ([facility]) [address] [address] Glucose [Mass/Vol] 86 mg/dL Normal 74-106 [facility] Comment on above: Order Comment: Locat ion: Performed By: #### Miki PORRAS, LAB18 #### CHANELL GOLDEN ([id number]) [facility] ([facility]) [address] [place] [address] Potassium [Moles/Vol] 4.1 mmol/L Normal 3.5-5.1 [facility] Comment on above: Order Comment: Locat ion: Performed By: #### Miki PORRAS, LAB18 #### CHANELL GOLDEN ([id number]) [facility] ([facility]) [address] [place] [address] Protein [Mass/Vol] 7.0 g/dL Normal 5.7-8.2 [facility] Comment on above: Order Comment: Locat ion: Performed By: #### Miki PORRAS, LAB18 #### CHANELL GOLDEN ([id number]) [facility] ([facility]) [address] [place] [address] Sodium [Moles/Vol] 139 mmol/L Normal 136-145 [facility] Comment on above: Order Comment: Locat ion: Performed By: #### Miki PORRAS, LAB18 #### CHANELL GOLDEN ([id number]) [facility] ([facility]) [address] [place] [address]67 Urea nitrogen [Mass/Vol] 11 mg/dL Normal 9-23 [facility] Comment on above: Order Comment: Locat ion: Performed By: #### L AB17, LAB18 #### CHANELL GOLDEN ([id number]) [facility] ([facility]) [address] [address] IDLK2Nmg 05-22-2024 HbA1c (Bld) [Mass fraction] 5.3 % Normal 0.0-5.6 [facility] Comment on above: Order Comment: Locat ion: Result Comment: Refe rence Interval: Normal: below 5.7% Prediabetes: 5.7% to 6.4% Diabetes: 6.5% or above Performed By: #### L [id number] #### CHANELL GOLDEN ([id number]) [facility] ([facility]) [address] [address] LIPID PANELon 05-22-2024 CHOL/HDL RATIO 2.4 Normal <=4.0 [facility] Comment on above: Order Comment: Locat ion: Performed By: #### Miki PORRAS, LAB18 #### CHANELL GOLDEN ([id number]) [facility] ([facility]) [address] [address] Cholesterol [Mass/Vol] 150 mg/dL Normal <=200 [facility] Comment on above: Order Comment: Locat ion: Result Comment: Low- risk levels (desirable) < 200 mg/dL Moderate-risk levels (borderline) 200 to 239 mg/dL High-risk levels > or = 240 mg/dL Performed By: #### Miki MCCORMACK17, LAB18 #### CHANELL GOLDEN ([id number]) [facility] ([facility]) [address] [facility], [address] [address] Cholesterol in HDL [Mass/Vol] 62 mg/dL Normal >60 [facility] Comment on above: Order Comment: Locat ion: Performed By: #### L AB17, LAB18 #### CHANELL GOLDEN ([id number]) [facility] ([facility]) [address] [facility], [address] [address] Cholesterol in LDL [Mass/Vol] 80 mg/dL Normal <=130 [facility] Comment on above: Order Comment: Locat ion: Performed By: #### Miki MCCORMACK17, LAB18 #### CHANELL GOLDEN ([id number]) [facility] ([facility]) [address] [address] NON-HDL CHOL 88 Normal [facility] Comment on above: Order Comment: Locat ion: Result Comment: LDL and Non-HDL goal dependent upon individual risk Performed By: #### Miki PORRAS, LAB18 #### CHANELL GOLDEN ([id number]) [facility] ([facility]) [address] [address] Triglyceride [Mass/Vol] 42 mg/dL Normal <=150 [facility] Comment on above: Order Comment: Locat ion: Performed By: #### Miki PORRAS, LAB18 #### CHANELL GOLDEN ([id number]) [facility] ([facility]) [address] [address] VLDL-CALC 8.4 mg/dl Normal 0-30 [facility] Comment on above: Order Comment: Locat ion: Performed By: #### Miki PORRAS, LAB18 #### CHANELL GOLDEN ([id number]) [facility] ([facility]) [address] [address] Pathology studyOrdered By: Shana Krueger on 11-30-2022 Citation Haseeb (Reference lab test) x9jblIQeHJYkv7toAUB mbGFuZzEwMzNcZnRuYm pcdWMxIHtccnRmMVxzc 0MeZ8TtPfUzBMsjhsWp XGRlZmxhbmcxMDMzXGZ 0bmJqXHVjMVxkZWZmMH cwXk9qbSXyfXjcJxExH SIog4ivtpOXLAjoQYSQ BGq7p6sjQWBjJxA1gWN mXQvuL0lfnhBlyBCaI9 Aqz2SiHAj5nN37GBIca S1ouGExGTosobSmDeY5 GFhoNEIcVaC5CYWizWP iARRyD2dtJFAhTHgtgn JuezH2SBVboLAwODI9M NEaHDUuA6LzZP9xMLCs eHXbMAn7j4gzyZflJLZ dLLJ5p2jrJJbbvkDaDB 8hri5qjUb8m4kvacWfF JMvKVOifIHEVHKiN6Tb oInaJh5miIx8xRviIdu kWGP4Egl3AA0dzg53pm m6vTnoJKGcoksvCeK2N GczLLAlxfmhFGj5QYsz BIXnrKQ4ULEgjPHdG4O yWTMdKV2nugg2FXA5AV sjTYUlVaQ7VUOfrQLlL MHdhQjxMJkgi240LOL9 AlSpUE5bI4Ato8B7pO7 maXRcZGVmdGFiNzIwXG Dpef5erQBtVIjop7NgZ GF1ozL4kLUpkGXjMQEc MX98Mbnmf4GvCqwbWSK 3ASVkbmOrm4Khz9viJr WjzgJhV5auM9RcALPzY EUhJCGrRbRtmuVqa8Lt y7FjrRAgiQs9g2omOGY vULWmjFnuf0klDOL8ZV GjX0V0kIKpb5ksJQdiU DWwtVK0wmP5XEXzaMIo F2FbfC2lWKJqFE6oedr 8w8wmFAK6FVuuEIAgCb X2jxR3KUNcfOIxXVGfm JudCDntk878VVE1ZlWq PMWmk2EuH7KiuJblD64 vzAklG89vUARkiNascS 3ruVauqR2qMqQzDcNbO FxxbFxwbGFpblxmMVxm ekY1FBmabxcdJLGeMGg jP9kwIeEmBVKeeUyzYU kij4GxKLGwHKCkCknkk tR4JUveCS46XFwwvJLa e6crt7NdC7giyXllhKD 5IJ4fAFWxFCWqJBjxy6 KbyN4kkMBfJTPgsnX2w XOlgA45ZYOgquH4TPZo p22id5YvkNnlzeUoKSI dMGflkdEwMTNuk3FlWK WcUQXaRC78onLuB5Pfd DHsGOLrdpRqYZcdqA8t w5w5OEbiFw6bEVuzv7T izPYneWUvvMP9XVCzp3 QgYmVlbiBjbGVhcmVkI K6kRTXhrOHzlzHzCGN8 ZZPnHOBQXbOvCXAqm4Z tJW0uFBEuwDwdWVVajM 5pe1XiJYPuu67jHONnC SBGREEgaGFzIGRldGVy bWluZWQgdGhhdCBzdWN jNMJkTJFfVU1rGQTrqo GdwRTzp2BbkYUgzlWhe 1EctmJoRHJaRXK8LoET rIZwZKZ2QWP7ugUibxG vgCYdTCOzz5UmT6feoa rzRTwtfTAyhS3yFFZcI R4uFYKkj3VqDENje6Bu YmUgcmVnYXJkZWQgYXM hmQ26NKX7tNdlwWzevu WeHB1lQVMszvPgNCZqB BBejI8wTVblnsJtSKXt gqC4p3E1SJdlMVTunmO uMatoPHO5gaVbWYZid1 PyZMxrN6oqS80dfVsob Wt2rJB9WVW4jX3kFBCn ZGVyIHRoZSBDbGluaWN ceNTDHWMhovL9v5X6HQ qepBWbfwViYT58LZCgL U3zuMRfnQSsk8DsAGl5 XB9fSZepBSRkzbGus5t lWKFil6blYQPkvp2rnk rgqOMgpfVkR6Zxhnk9b E2llLPqIQVsjf99ZYU3 QmHdAE0piRtnXCDmTQ3 xLYMeN9xxhV1rpit3Ig Lds3exzAXwOHEdbHNkY eLyVAXhFVUiq3czZOUu bGFuZzEwMzNcZnRuYmp lqQHoEJDsIeZts1utt5 32rMGob2ezJMNiIbD3t MSoOXSbP29hDPNTU033 EUFhJBwtd3dix1PaSGV fkSVoc3Q8EBJUOXdmHK XBRHe7zTjaU37zn5F6D vlwP7wrZKHcOXFcD3Fs FZ0bFFVkLgw0LJK8WUP 3IPWoPQX8WHlvBNOrCC WwXxr2LLK5NDvcgkMbM TQzXGdyZWVuMTQzXGJs kPIdZHVvY8mgAJFeAKy nGXIoOAtajCHwDNR6lQ afu5J0dNScjSHnrHsaE kTbOzBkBlRPx1UjGAj7 uMctL1OeCZBrTiK0uTH gUGFyYWdyYXBoIEZvbn G0jS15IRttnqP0hZVaa 7Fma18cs810tD4pmBCt ZQR5CNTgIMEeyTIfQXI vLYV5WHGopNBcB1nzZD UgFE9tnxlwJDhaHUleX LNhlAD2ZFDqdHVjV2Kj RADtZQxkEQPcyhv8HqI lFe0pjLOatUidNAymi9 xtd3xihVYaQdx8SSPcJ kDnEmdgFJxaq9Wla7nu NVWqyb3eSRA0sXEvsLt te6K2xGNnJOFjiIEftf JsULBsIsH6EDwnBV2cn i83VKUaLHU3cc3qhVUl kKdzsiQzrUJaVWraA6M wLNNse009DBBdP6BeKT Aoa2R9apAyUpYoRUDqf JM7muB7UYBsVUm3hTDo jxM4ybDgrTYqL4rroT9 pZUKeBG3sjlhmt2pwSM xqOEcvQEHztKG1apN6M DYvrPAnF1SfpX0nTSLg RKvgBEXhjup2ZeReYh4 vdGVyeTcyMFxzYmtwYW dlXHBnbmNvbnRccGduZ GVjXHBsYWluXHBsYWlu XGYwXGZzMjRccWxccGx jrL4xDtYlCwYzZDshGS 2wWFLxR6rqnSKdFXFjF XFjQ7jfJqEhoD7esWci MVxjZjJcZnMxOFxpIFR qYOR5LLZfzzldKCseX9 3xlG8zBY24GWdjubWsD JMgu3MsMMRxLYUuQAzc ETFyniVcPIgnnK6me0o 6EWcdKw8kAUNwdsvuLT Q9FuYxJI98BhckbCXiH SBBdmUsIENvbHVtYnVz LVJSwVyzEKSzCfG1DdL BeEEth2Kei3AaZyVenD ApbJ8pbQulhpJ1CYHhc QCqJn3hvUHbXuxyqFJg ngstJSjhprP5FEdorqh yUWDyLAcxP3kcPgRuJI AuhHjjYMlsx6JtICClD GLwR0tbnbT7DJjjdPKe QLJrac53bF== [facility] Work Phone: Microscopic description Haseeb (Endomyocardium) p8szzRJjHWVwsMZEEYP lDBIlAS9jwZmogDz0lZ rlASQevyZ2yZJiMIjlz 2mwJNP1q1lpguZNHejm BUGnJG7iSCibYGEgBC0 nZmUwXGRlZmYyXHBhcG VydzEyMjQwXHBhcGVya MN1RUDiCP6qfnvcTPpf LPrxOZUdilB0SSZspJS iR8HbYWCqDP4oosmqHB A5JAOCRqbdDm1gfHBfb CANCntcZjFcZmNoYXJz ZXQwXGZuaWwgQXJpYWw 9pR1Qr9trTgkxE0qjjd QsxWZfLt8dzDNARUacC QWVTGg4dP7YPIPnZ1Gt WW6El5tbVNGuyIQpGLU 6SVvrn8yxUGfzIJU9MP SyOZAgAISbMW0PXvIaZ TB5YlGjKZugCpK3FAp3 DXTHANBtRTEgETv5TFe 7SIm8MFrmjwosRPj9DM EyPUrhvYMvWW2alEaiA fxysBueg3NsfBFuFORm IFxcaWQgNTEwMDIgXFx oItRIZlXvJrHdXLZ2Yo H4HvWqCNe3FPitB8CYF VVrOPO1VcC0KmjjWqC9 USz5IWTJXj1dZmG4WmK 4FNa6DBT4VCD1MrQfRH QgMiBcXHNzIDMgXFxmb IPrBZ3cyZraCRNkFZ6V XHBsYWluXGYxXGZzMjA uUX9bIYHaW7JaJV57YZ F3sO6qTZCKeKwwvU4Aq 9DuweSnxgwtZ87vy00u IHJhbmRvbSByaWdodCB dk4rsxkROZDnrlOUjJJ 0KXHBhcmQgDQpccGxha L9pExMjSkLyVTlqwZNx blxsdHJjaFxmczIyXGV qsVTQLGW1OS4uZYQEHn xsdHJwYXJcbGluMFxya T6aVX4YJJXaRBOaTeMx IaUtHOr2CJYaeM1gJy7 htADwtE8kzTUyJByaQB Y7sBFsJXUhrChchaObg dFoGMGdaaFyJsNvXG1v p47vP79uh93wNqvegQS 5IiBpcyBhIDAuNCBjbS YcU4bsHJjdlAJhi6Ehx SNlFRSlj5P9UCDsitZj dcWplNBagEEoxNR4REO wqO4oSxgeH1kfIVHiEC BhciANClxwYXIgDQpcc 2EzMFxlcGljWHNhMzAg RVuoobv2QY9JICDeFJp lcGljWHNhMCANClxlcG dhLgSolXCmHdY7DFZfw OEwMBC4JZ1qhEcqMILn CLs8ACzsDODuX0QxF4T gXFxzZyBcXGlkIDUxMD YaHZvjDYFbA8MLFTJsF EogPoU6KtNgCSk0AMi4 WU6LDoCrKIKdXsObRul 7WjYbLWj3KSbdKR6ARB R0HTOkYSF2ZIUiVIIrG NOoZMw3VSYlAFimotLr LRjrEgtaHUfgQ41ms0L uLKTzQLEvF0pkKlSxZS ANClxmMlxmczIyXGYxX IWiOkLsTc4yJDDwD8Az VO77XGE8lN4oWOSVZYS 7A5Dzy5UnrnFctesjT9 3qv21bOIWicbMlmGFTS UxotHUipLUaj4ucgisp lCNrBO3LKAJyxoOpMFl sjLybfR2maSNzB3gbGy FcZnMyMFxmMlxmczIyX EGvwLNEAHL4YL2tITNU ClxsdHJwYXJcbGluMFx ayR6jKGJtTqVvLAIzX9 iyXbJvYR6JMLBtMMXeV iJeXyUqQKr4RVMjaF5i Fq3uzVFplH6kzHIeRVr bSGO3aAJxTUCssWuwsv QgbmFtZSBhbmQgIiByY K3of54aLjaulQI8JGic VwIcC99pd86pHNvqVES pFS22QAYbGDSpH9AlI2 P8VKJgOvR3OL8hsLghg 1RiUZGkgGekWHp4LBT5 Yc7hyRHsACDgzoMfrO7 eolWMZO4zuWPmMT3RMA NiMFxlcGljWHNiMCANC rxfHKSfLExve6BmXRql cGljWHNhMzAgDQooemh 6KC4BQLYtFMruqAtrIO NhMCANClxlcGljTmVzd ZIjVyF2QNHktEEgTAU7 QP7feWdkQXPxXXm9IJy uVLSpY5UiP0YaHIaaBp BcXGlkIDUxMDAyIFxcZ BUlO6GIWHZvTYfiFqT4 OqWqEBn2YFr8UU4LZyA yWCKeYrVhUqc6JREpGZ x3IQjvUD6VMSY0KUIeR TIxOTkgNTUwNTMgXFx0 IDIgXFxzcyAzIFxcZmw aBDgvO34wz1OeSJMsRV FdA9rhHlZpMRSUVbtmY lxmczIyXGYxXGZzMjAg Mr1gPQOqJ4MeYZ81OEG 4aO4iJSEMTAB1uP2sKW BilfZovXOkISE3SMmlT mauqCK0LqmcoLBgZO4F XHBhcmQgDQpccGxhaW5 lvGCwT8csSwDmErMgGA xmMlxmczIyXGVwaWNOZ IX6AY1lTZKQHkxfaSDt JFTmzDxpQCaooN7kLLJ zXdHcLHEbM1meUkTtKR 0KXGYxXGZzMjAgUmVjZ Zv9JYZhvL0tVa6sqQFt gY8zgFHhPYwrEAG8iWW oIHBhdGllbnQgbmFtZS EhguZnBhObBG8jp81kt hUsbJZvQVCgz0IqvEXd oEVwODHsKoHlE03oDQk ejqWwZWRqMM0nWEGike Z7rVLvoCDdTU87uPNvn Qvtn1AloVo6bQMnTJee TFZcp2QhSYQdWgppYIB dMXzus1BcNNJyqIXAk7 ScMQ6SFOEobiWYPucbX FNdFADdiUCTw1RtUFNH Ofk8lRezBExxm1VzAOB dkNNSy3QeXH8VOIChwF XDGBG3VU0iENilZKCqW 6RrQ9LcfkN6o4wopFrm z5LyxMQrSR4pmMEnSN0 KXGYyXGZzMjIgDQp9 [employer] Work Phone: Pathology report final diagnosis Narrative p3bmsECbUDXjzMFsWJE uP2lojtAxVTErwWSyD9 OnjtqcHNelFU6eNZ0dp GxhdHRveWVuXGRlZmYw k5zku736wRWsv0fzLQP WvndvgTb4pLvwD95ef4 G8KiayF8kqYGUfAYrpR OFzZEfhiOBrSTe0IWBl cGVydzEyMjQwXHBhcGV mhDQ4SIXyXS3lywhuJK ecMUccQDBtmgI5QYXdh JQkG2IfJSLsOW9ulysr RXB9OSzxMDYmXUQ6XwZ dNEDnc7Umyqs0GtHcgV b6q3muEIIsCQTdqQhpz 2tmTAV0ZAVyiPAbQ4ye zQ8dSIGhQQ4lkfhhi8k gKLysWBwpBAYsqKU3rr C2ZXLyoGHeB2MysZ8fP DQwXHBhcmRcdHgxMjI0 MFxwbGFpblxjZjEgIFx rMLIrFPCQCA2ti64kcq qmzGTyF20xt70gWSXgx 3BzeTpccGFyIFVucmVt LENeTCZsHEPar6fbgzr zTX46T58tDF3gnBYrBG 0uA8Y4kUHvZLYoruOmk XNwbGFzaWEuXHBhclxw UDRdCt1vIHFplaXraWV vJBC7ZATbeK1uMRRryX 3vy3l4PNAalpKOxzBtt KCax1YmlBGlW64pd66k EyPjaWHne1GyDESzkhC DFEkmtKa9URNtu1BlRL pnxCdkx3wbNwsyGPRyg PAvGEYkPZPDDR6co24d uoQvyDIgEUOew8UudPb ccGFyIFVucmVtYXJrYW EzEWNgm9kytortMY34S 69tDV4lfQGmHO9qB3A0 aXZlIGZvciBkeXNwbGF zaWEuXHBhcn0= [facility] Work Phone: [employer] Phone: COLONOSCOPYon 11-28-2022 Colonoscopy [facility] Patient Name: Megan Fuentes Procedure Date: 11/28/2022 [...] saturations were monitored continuously. The PCF-190L - [id number] Colonoscope, Pediatric slim was introduced through the anus and advanced to the terminal ileum. The colonoscopy was performed without difficulty. The patient tolerated the procedure well. The quality of the bowel preparation was evaluated using the BBPS ([place] Bowel Preparation Scale) with scores of: Right [...] was minimal. Procedure Code(s): --- Professional --- 70056, Colonoscopy, flexible; with biopsy, single or multiple Diagnosis Code(s): --- Professional --- K51.90, Ulcerative colitis, unspecified, without complications CPT copyright 2020 [employer]. All rights reserved. The codes documented in this report are preliminary and upon recreation professor review may be revised to meet current compliance requirements. MD SHIRLEY Ervin MD 11/28/2022 3:57:45 PM This report has been signed electronically. Scope Withdrawal Time 0 hours 8 minutes 2 seconds Estimated Blood Loss: Estimated blood loss was minimal. Number of Addenda: 0 Note Initiated On: 11/28/2022 3:02 PM Total Procedure Duration Time 0 hours 20 minutes 46 seconds [address] [place] [address] IMPRESSION: - The examined portion of the [...] to GI clinic as previously scheduled. Normal [facility] COLONOSCOPY Anesthesia - MAC ; [facility] ENDOSCOPYon 11-28-2022 - The examined portion [...] Return to GI clinic as previously scheduled. [facility] Patient Name: Megan Fuentes Procedure Date: 11/28/2022 [...] saturations were monitored continuously. The PCF-190L - [id number] Colonoscope, Pediatric slim was introduced through the anus and advanced to the terminal ileum. The colonoscopy was performed without difficulty. The patient tolerated the procedure well. The quality of the bowel preparation was evaluated using the BBPS ([place] Bowel Preparation Scale) with scores of: Right [...] was minimal. Procedure Code(s): --- Professional --- 45561, Colonoscopy, flexible; with biopsy, single or multiple Diagnosis Code(s): --- Professional --- K51.90, Ulcerative colitis, unspecified, without complications CPT copyright 2020 [employer]. All rights reserved. The codes documented in this report are preliminary and upon recreation professor review may be revised to meet current compliance requirements. MD SHIRLEY Ervin MD 11/28/2022 3:57:45 PM This report has been signed electronically. Scope Withdrawal Time 0 hours 8 minutes 2 seconds Estimated Blood Loss: Estimated blood loss was minimal. Number of Addenda: 0 Note Initiated On: 11/28/2022 3:02 PM Total Procedure Duration Time 0 hours 20 minutes 46 seconds [address] [place] [address] [facility] Shirley Jeffery MD - 11/28/2022 [facility] GI Patient Name: Megan Fuentes Procedure Date: [...] saturations were monitored continuously. The PCF-190L - [id number] Colonoscope, Pediatric slim was introduced through the anus and advanced to the terminal ileum. The colonoscopy was performed without difficulty. The patient tolerated the procedure well. The quality of the bowel preparation was evaluated using the BBPS ([place] Bowel Preparation Scale) with scores of: Right [...] was minimal. Procedure Code(s): --- Professional --- 37017, Colonoscopy, flexible; with biopsy, single or multiple Diagnosis Code(s): --- Professional --- K51.90, Ulcerative colitis, unspecified, without complications CPT copyright 2020 [employer]. All rights reserved. The codes documented in this report are preliminary and upon recreation professor review may be revised to meet current compliance requirements. MD SHIRLEY Ervin MD 11/28/2022 3:57:45 PM This report has been signed electronically. Scope Withdrawal Time 0 hours 8 minutes 2 seconds Estimated Blood Loss: Estimated blood loss was minimal. Number of Addenda: 0 Note Initiated On: 11/28/2022 3:02 PM Total Procedure Duration Time 0 hours 20 minutes [address] seconds [address] [place] [address] IMPRESSION: - The examined portion of the [...] Return to GI clinic as previously scheduled. [employer] Radiology Study observation (narrative) [facility] FLUAV+FLUBV Ag Ql (Unsp spec )on 10-25-2022 Internal Control Pass Yes Yes [facility] Interpretation and review of laboratory results Normal [facility] [place] [facility] Rapid Influenza A AGN POC Negative Negative [facility] Rapid Influenza B AGN POC Negative Negative Kat[facility] [employer] Katia [employer] Bioplex HIV 1+2 Antigen and Antibodies, w/ Reflexeson 12-23-2021 HIV 1+2 Antigen and Antibodies Non-Reactive Normal Non-Reactive [facility] Comment on above: Order Comment: Items in this order include: Comprehensive Metabolic Panel, Lipid Panel, Bioplex HIV 1+2 Antigen and Antibodies, w/ Reflexes, CBC with differential, Testing Performed By: [facility] [address] [place] [address] CLIA#:[id number] [address] Chanell Golden, Sales Apprentice Performed By: #### C 47, C215, C8, C4891 #### [facility] [address] [place] [address] HIV-1 Antibody Non-Reactive Normal Non-Reactive [facility] Comment on above: Order Comment: Items in this order include: Comprehensive Metabolic Panel, Lipid Panel, Bioplex HIV 1+2 Antigen and Antibodies, w/ Reflexes, CBC with differential, Testing Performed By: [facility] [address] [place] [address] CLIA#:[id number] [address] Chanell Golden, Sales Apprentice Performed By: #### C 47, C215, C8, C4891 #### [facility] [address] [facility] [place] [address] HIV-1 p24 Antigen Non-Reactive Normal Non-Reactive [facility] Comment on above: Order Comment: Items in this order include: Comprehensive Metabolic Panel, Lipid Panel, Bioplex HIV 1+2 Antigen and Antibodies, w/ Reflexes, CBC with differential, Testing Performed By: [facility] [address] [place] [address] CLIA#:[id number] [address] Chanell Golden, Sales Apprentice Performed By: #### C 47, C215, C8, C4891 #### [facility] [address] [facility] [address] [place] [address] HIV-2 Antibody Non-Reactive Normal Non-Reactive [facility] Comment on above: Order Comment: Items in this order include: Comprehensive Metabolic Panel, Lipid Panel, Bioplex HIV 1+2 Antigen and Antibodies, w/ Reflexes, CBC with differential, Testing Performed By: [facility] [address] [place] [address] CLIA#:[id number] [address] Chanell Golden, Sales Apprentice Performed By: #### C 47, C215, C8, C4891 #### [facility] [address] [place] [address] [address] [place] [address] CBC with differentialon 11-27 BASO # 0.0 K CUMM Normal 0.0-0.2 [facility] Comment on above: Order Comment: Items in this order include: Comprehensive Metabolic Panel, Lipid Panel, Bioplex HIV 1+2 Antigen and Antibodies, w/ Reflexes, CBC with differential, Testing Performed By: [facility] [address] [place] [address] CLIA#:[id number] [address] Chanell Golden, Sales Apprentice Performed By: #### C 47, C215, C8, C4891 #### [facility] [address] [facility] [address] [place] [address] Basophils/100 WBC (Bld) 1.0 % Normal 0.0-3.0 [facility] Comment on above: Order Comment: Items in this order include: Comprehensive Metabolic Panel, Lipid Panel, Bioplex HIV 1+2 Antigen and Antibodies, w/ Reflexes, CBC with differential, Testing Performed By: [facility] [address] [place] [address] CLIA#:[id number] [address] Chanell Golden, Sales Apprentice Performed By: #### C 47, C215, C8, C4891 #### [facility] [address] [facility] [address] [place] [address] EOS # 0.2 K CUMM Normal 0.0-0.4 [facility] Comment on above: Order Comment: Items in this order include: Comprehensive Metabolic Panel, Lipid Panel, Bioplex HIV 1+2 Antigen and Antibodies, w/ Reflexes, CBC with differential, Testing Performed By: [facility] [address] [place] [address] CLIA#:[id number] [address] Chanell Golden, Sales Apprentice Performed By: #### C 47, C215, C8, C4891 #### [facility] [address] [place] [address] [address] [place] [address] Eosinophils/100 WBC (Bld) 3.8 % Normal 0.0-7.0 [facility] Comment on above: Order Comment: Items in this order include: Comprehensive Metabolic Panel, Lipid Panel, Bioplex HIV 1+2 Antigen and Antibodies, w/ Reflexes, CBC with differential, Testing Performed By: [facility] [address] [place] [address] CLIA#:[id number] [address] Chanell Golden, Sales Apprentice Performed By: #### C 47, C215, C8, C4891 #### [facility] [facility] [address] [place] [address] Erythrocyte distribution width (RBC) [Ratio] 12.9 % Normal 11.5-15.5 [facility] Comment on above: Order Comment: Items in this order include: Comprehensive Metabolic Panel, Lipid Panel, Bioplex HIV 1+2 Antigen and Antibodies, w/ Reflexes, CBC with differential, Testing Performed By: [facility] [address] [place] [address] CLIA#:[id number] [address] Chanell Golden, Sales Apprentice Performed By: #### C 47, C215, C8, C4891 #### [facility] [address] [facility] [address] [place] [address] Hematocrit (Bld) [Volume fraction] 41.9 % Normal 37.0-47.0 [facility] Comment on above: Order Comment: Items in this order include: Comprehensive Metabolic Panel, Lipid Panel, Bioplex HIV 1+2 Antigen and Antibodies, w/ Reflexes, CBC with differential, Testing Performed By: [facility] [address] [place] [address] CLIA#:[id number] [address] Chanell Golden, Sales Apprentice Performed By: #### C 47, C215, C8, C4891 #### [facility] [address] [facility] [place] [address] Hemoglobin (Bld) [Mass/Vol] 13.6 g/dL Normal 11.5-15.5 [facility] Comment on above: Order Comment: Items in this order include: Comprehensive Metabolic Panel, Lipid Panel, Bioplex HIV 1+2 Antigen and Antibodies, w/ Reflexes, CBC with differential, Testing Performed By: [facility] [address] [place] [address] CLIA#:[id number] [address] Chanell Golden, Sales Apprentice Performed By: #### C 47, C215, C8, C4891 #### [facility] [address] [facility] [address] [place] [address] ImmGrn # 0.0 K CUMM Normal 0.0-0.3 [facility] Comment on above: Order Comment: Items in this order include: Comprehensive Metabolic Panel, Lipid Panel, Bioplex HIV 1+2 Antigen and Antibodies, w/ Reflexes, CBC with differential, Testing Performed By: [facility] [address] [place] [address] CLIA#:[id number] Dr. Chanell Golden, Sales Apprentice Performed By: #### C 47, C215, C8, C4891 #### [facility] [address] [facility] [address] [place] [address] ImmGrn % 0.3 % Normal 0.0-3.0 [facility] Comment on above: Order Comment: Items in this order include: Comprehensive Metabolic Panel, Lipid Panel, Bioplex HIV 1+2 Antigen and Antibodies, w/ Reflexes, CBC with differential, Testing Performed By: [facility] [address] [place] [address] CLIA#:[id number] [address] Chanell Golden, Sales Apprentice Performed By: #### C 47, C215, C8, C4891 #### [facility] [address] [facility] [address] [place] [address] LYMPH # 2.1 K CUMM Normal 0.7-4.5 [facility] Comment on above: Order Comment: Items in this order include: Comprehensive Metabolic Panel, Lipid Panel, Bioplex HIV 1+2 Antigen and Antibodies, w/ Reflexes, CBC with differential, Testing Performed By: [facility] [address] [place] [address] CLIA#:[id number] [address] Chanell Golden, Sales Apprentice Performed By: #### C 47, C215, C8, C4891 #### [facility] [address] [place] [address] [address] [place] [address] Lymphocytes/100 WBC (Bld) 52.7 % High 14.0-46.0 [facility] Comment on above: Order Comment: Items in this order include: Comprehensive Metabolic Panel, Lipid Panel, Bioplex HIV 1+2 Antigen and Antibodies, w/ Reflexes, CBC with differential, Testing Performed By: [facility] [address] [place] [address] CLIA#:[id number] [address] Chanell Golden, Sales Apprentice Performed By: #### C 47, C215, C8, C4891 #### [facility] [address] [facility] [address] [place] [address] MCH (RBC) [Entitic mass] 28.2 pg Normal 27.0-31.0 [facility] Comment on above: Order Comment: Items in this order include: Comprehensive Metabolic Panel, Lipid Panel, Bioplex HIV 1+2 Antigen and Antibodies, w/ Reflexes, CBC with differential, Testing Performed By: [facility] [address] [place] [address] CLIA#:[id number] Dr. Chanell Golden, Sales Apprentice Performed By: #### C 47, C215, C8, C4891 #### [facility] [address] [facility] [address] [place] [address] MCHC (RBC) [Mass/Vol] 32.5 g/dL Normal 32.0-36.0 [facility] Comment on above: Order Comment: Items in this order include: Comprehensive Metabolic Panel, Lipid Panel, Bioplex HIV 1+2 Antigen and Antibodies, w/ Reflexes, CBC with differential, Testing Performed By: [facility] [address] [place] [address] CLIA#:[id number] [address] Chanell Golden, Sales Apprentice Performed By: #### C 47, C215, C8, C4891 #### [facility] [address] [facility] [address] [place] [address] MCV (RBC) [Entitic vol] 86.9 fL Normal 78.0-100.0 [facility] Comment on above: Order Comment: Items in this order include: Comprehensive Metabolic Panel, Lipid Panel, Bioplex HIV 1+2 Antigen and Antibodies, w/ Reflexes, CBC with differential, Testing Performed By: [facility] [address] [place] [address] CLIA#:[id number] Dr. Chanell Golden, Sales Apprentice Performed By: #### C 47, C215, C8, C4891 #### [facility] [address] [facility] [address] [place] [address] MONO # 0.4 K CUMM Normal 0.1-1.0 [facility] Comment on above: Order Comment: Items in this order include: Comprehensive Metabolic Panel, Lipid Panel, Bioplex HIV 1+2 Antigen and Antibodies, w/ Reflexes, CBC with differential, Testing Performed By: [facility] [address] [place] [address] CLIA#:[id number] Dr. Chanell Golden, Sales Apprentice Performed By: #### C 47, C215, C8, C4891 #### [facility] [address] [facility] [address] [place] [address] Monocytes/100 WBC (Bld) 8.9 % Normal 4.0-13.0 [facility] Comment on above: Order Comment: Items in this order include: Comprehensive Metabolic Panel, Lipid Panel, Bioplex HIV 1+2 Antigen and Antibodies, w/ Reflexes, CBC with differential, Testing Performed By: [facility] [address] [place] [address] CLIA#:[id number] [address] Chanell Golden, Sales Apprentice Performed By: #### C 47, C215, C8, C4891 #### [facility] [address] [facility] [address] [place] [address] DEXTER # 1.3 K CUMM Low 1.8-7.8 [facility] Comment on above: Order Comment: Items in this order include: Comprehensive Metabolic Panel, Lipid Panel, Bioplex HIV 1+2 Antigen and Antibodies, w/ Reflexes, CBC with differential, Testing Performed By: [facility] [address] [place] [address] CLIA#:[id number] [address] Chanell Golden, Sales Apprentice Performed By: #### C 47, C215, C8, C4891 #### [facility] [address] [facility] [address] [place] [address] Neutrophils/100 WBC (Bld) 33.3 % Low 40.0-74.0 [facility] Comment on above: Order Comment: Items in this order include: Comprehensive Metabolic Panel, Lipid Panel, Bioplex HIV 1+2 Antigen and Antibodies, w/ Reflexes, CBC with differential, Testing Performed By: [facility] [address] [place] [address] CLIA#:[id number] [address] Chanell Golden, Sales Apprentice Performed By: #### C 47, C215, C8, C4891 #### [facility] [address] [facility] [address] [place] [address] Platelet mean volume (Bld) [Entitic vol] 9.5 fL Normal 8.9-12.6 [facility] Comment on above: Order Comment: Items in this order include: Comprehensive Metabolic Panel, Lipid Panel, Bioplex HIV 1+2 Antigen and Antibodies, w/ Reflexes, CBC with differential, Testing Performed By: [facility] [address] [place] [address] CLIA#:[id number] [address] Chanell Golden, Sales Apprentice Performed By: #### C 47, C215, C8, C4891 #### [facility] [address] [facility] [place] [address] PLT 287 K CUMM Normal 130-400 [facility] Comment on above: Order Comment: Items in this order include: Comprehensive Metabolic Panel, Lipid Panel, Bioplex HIV 1+2 Antigen and Antibodies, w/ Reflexes, CBC with differential, Testing Performed By: [facility] [address] [place] [address] CLIA#:[id number] [address] Chanell Golden, Sales Apprentice Performed By: #### C 47, C215, C8, C4891 #### [facility] [address] [place] [address] [place] [address] RBC 4.82 M CUMM Normal 3.80-5.10 [facility] Comment on above: Order Comment: Items in this order include: Comprehensive Metabolic Panel, Lipid Panel, Bioplex HIV 1+2 Antigen and Antibodies, w/ Reflexes, CBC with differential, Testing Performed By: [facility] [address] [place] [address] CLIA#:[id number] [address] Chanell Golden, Sales Apprentice Performed By: #### C 47, C215, C8, C4891 #### [facility] [address] [facility] [address] [place] [address] WBC 4.0 K CUMM Normal 3.8-10.6 [facility] Comment on above: Order Comment: Items in this order include: Comprehensive Metabolic Panel, Lipid Panel, Bioplex HIV 1+2 Antigen and Antibodies, w/ Reflexes, CBC with differential, Testing Performed By: [facility] [address] [place] [address] CLIA#:[id number] [address] Chanell Golden, Sales Apprentice Performed By: #### C 47, C215, C8, C4891 #### [facility] [address] [place] [address] Comprehensive Metabolic Pane homero 12-23-2021 Albumin [Mass/Vol] 4.2 g/dL Normal 3.2-4.8 [facility] Comment on above: Order Comment: Items in this order include: Comprehensive Metabolic Panel, Lipid Panel, Bioplex HIV 1+2 Antigen and Antibodies, w/ Reflexes, CBC with differential, Testing Performed By: [facility] [address] [place] [address] CLIA#:[id number] [address] Chanell Golden, Sales Apprentice Performed By: #### C 47, C215, C8, C4891 #### [facility] [address] [place] [address] Albumin/Globulin [Mass ratio] 1.6 {ratio} Normal [facility] Comment on above: Order Comment: Items in this order include: Comprehensive Metabolic Panel, Lipid Panel, Bioplex HIV 1+2 Antigen and Antibodies, w/ Reflexes, CBC with differential, Testing Performed By: [facility] [address] [place] [address] CLIA#:[id number] [address] Chanell Golden, Sales Apprentice Performed By: #### C 47, C215, C8, C4891 #### [facility] [address] [place] [address] Alk Phos 47 U/L Normal 20-147 [facility] Comment on above: Order Comment: Items in this order include: Comprehensive Metabolic Panel, Lipid Panel, Bioplex HIV 1+2 Antigen and Antibodies, w/ Reflexes, CBC with differential, Testing Performed By: [facility] [address] [place] [address] CLIA#:[id number] Dr. Chanell Golden, Sales Apprentice Performed By: #### C 47, C215, C8, C4891 #### [facility] [address] [facility] [address] [place] [address] ALT [Catalytic activity/Vol] 13 U/L Normal 10-49 [facility] Comment on above: Order Comment: Items in this order include: Comprehensive Metabolic Panel, Lipid Panel, Bioplex HIV 1+2 Antigen and Antibodies, w/ Reflexes, CBC with differential, Testing Performed By: [facility] [address] [place] [address] CLIA#:[id number] [address] Chanell Golden, Sales Apprentice Performed By: #### C 47, C215, C8, C4891 #### [facility] [address] [place] [address] [address] [place] [address] AST [Catalytic activity/Vol] 18 U/L Normal <34 [facility] Comment on above: Order Comment: Items in this order include: Comprehensive Metabolic Panel, Lipid Panel, Bioplex HIV 1+2 Antigen and Antibodies, w/ Reflexes, CBC with differential, Testing Performed By: [facility] [address] [place] [address] CLIA#:[id number] [address] Chanell Golden, Sales Apprentice Performed By: #### C 47, C215, C8, C4891 #### [facility] [address] [place] [address] [address] [place] [address] B/C Ratio 15.7 Ratio Normal [facility] Comment on above: Order Comment: Items in this order include: Comprehensive Metabolic Panel, Lipid Panel, Bioplex HIV 1+2 Antigen and Antibodies, w/ Reflexes, CBC with differential, Testing Performed By: [facility] [address] [place] [address] CLIA#:[id number] [address] Chanell Golden, Sales Apprentice Performed By: #### C 47, C215, C8, C4891 #### [facility] [address] [facility] [address] [place] [address] Bilirubin [Mass/Vol] 0.6 mg/dL Normal 0.3-1.2 [facility] Comment on above: Order Comment: Items in this order include: Comprehensive Metabolic Panel, Lipid Panel, Bioplex HIV 1+2 Antigen and Antibodies, w/ Reflexes, CBC with differential, Testing Performed By: [facility] [address] [place] [address] CLIA#:[id number] [address] Chanell Golden, Sales Apprentice Performed By: #### C 47, C215, C8, C4891 #### [facility] [address] [facility] [address] [place] [address] Calcium [Mass/Vol] 9.2 mg/dL Normal 8.3-10.6 [facility] Comment on above: Order Comment: Items in this order include: Comprehensive Metabolic Panel, Lipid Panel, Bioplex HIV 1+2 Antigen and Antibodies, w/ Reflexes, CBC with differential, Testing Performed By: [facility] [address] [place] [address] CLIA#:[id number] Chanell Golden, Sales Apprentice Performed By: #### C 47, C215, C8, C4891 #### [facility] [address] [place] [address] Chloride [Moles/Vol] 107 mmol/L Normal 98-107 [facility] Comment on above: Order Comment: Items in this order include: Comprehensive Metabolic Panel, Lipid Panel, Bioplex HIV 1+2 Antigen and Antibodies, w/ Reflexes, CBC with differential, Testing Performed By: [facility] [address] [place] [address] CLIA#:[id number] Dr. Chanell Golden, Sales Apprentice Performed By: #### C 47, C215, C8, C4891 #### [facility] [address] [place] [address] CO2 [Moles/Vol] 26 mmol/L Normal 20-31 [facility] Comment on above: Order Comment: Items in this order include: Comprehensive Metabolic Panel, Lipid Panel, Bioplex HIV 1+2 Antigen and Antibodies, w/ Reflexes, CBC with differential, Testing Performed By: [facility] [address] [place] [address] CLIA#:[id number] [address] Chanell Golden, Sales Apprentice Performed By: #### C 47, C215, C8, C4891 #### [facility] [address] [place] [address] Creatinine [Mass/Vol] 0.7 mg/dL Normal 0.6-1.0 [facility] Comment on above: Order Comment: Items in this order include: Comprehensive Metabolic Panel, Lipid Panel, Bioplex HIV 1+2 Antigen and Antibodies, w/ Reflexes, CBC with differential, Testing Performed By: [facility] [address] [place] [address] CLIA#:[id number] [address] Chanell Golden, Sales Apprentice Performed By: #### C 47, C215, C8, C4891 #### [facility] [address] [place] [address] GFR 103 mL/min per 1.73 Normal >60 [facility] Comment on above: Order Comment: Items in this order include: Comprehensive Metabolic Panel, Lipid Panel, Bioplex HIV 1+2 Antigen and Antibodies, w/ Reflexes, CBC with differential, Testing Performed By: [facility] [address] [place] [address] CLIA#:[id number] [address] Chanell Golden, Sales Apprentice Result Comment: The GFR estimate is not adjusted for race. If the patient's race is -Lithuanian, the GFR estimate must be multiplied by a factor of 1.21. Performed By: #### C 47, C215, C8, C4891 #### [facility] [address] [place] [address] Globulin (S) [Mass/Vol] 2.7 g/dL Normal [facility] Comment on above: Order Comment: Items in this order include: Comprehensive Metabolic Panel, Lipid Panel, Bioplex HIV 1+2 Antigen and Antibodies, w/ Reflexes, CBC with differential, Testing Performed By: [facility] [address] [place] [address] CLIA#:[id number] [address] Chanell Golden, Sales Apprentice Performed By: #### C 47, C215, C8, C4891 #### [facility] [address] [facility] [place] [address] Glucose [Mass/Vol] 79 mg/dL Normal 74-106 [facility] Comment on above: Order Comment: Items in this order include: Comprehensive Metabolic Panel, Lipid Panel, Bioplex HIV 1+2 Antigen and Antibodies, w/ Reflexes, CBC with differential, Testing Performed By: [facility] [address] [place] [address] CLIA#:[id number] [address] Chanell Golden, Sales Apprentice Performed By: #### C 47, C215, C8, C4891 #### [facility] [address] [place] [address] [place] [address] Potassium [Moles/Vol] 3.9 mmol/L Normal 3.5-5.1 [facility] Comment on above: Order Comment: Items in this order include: Comprehensive Metabolic Panel, Lipid Panel, Bioplex HIV 1+2 Antigen and Antibodies, w/ Reflexes, CBC with differential, Testing Performed By: [facility] [address] [place] [address] CLIA#:[id number] Dr. Chanell Golden, Sales Apprentice Performed By: #### C 47, C215, C8, C4891 #### [facility] [facility] [place] [address] Protein [Mass/Vol] 6.9 g/dL Normal 5.7-8.2 [facility] Comment on above: Order Comment: Items in this order include: Comprehensive Metabolic Panel, Lipid Panel, Bioplex HIV 1+2 Antigen and Antibodies, w/ Reflexes, CBC with differential, Testing Performed By: [facility] [address] [place] [address] CLIA#:[id number] Dr. Chanell oGlden, Sales Apprentice Performed By: #### C 47, C215, C8, C4891 #### [facility] [address] [place] [address] [address] [place] [address] Sodium [Moles/Vol] 140 mmol/L Normal 136-145 [facility] Comment on above: Order Comment: Items in this order include: Comprehensive Metabolic Panel, Lipid Panel, Bioplex HIV 1+2 Antigen and Antibodies, w/ Reflexes, CBC with differential, Testing Performed By: [facility] [address] [place] [address] CLIA#:[id number] Dr. Chanell Golden, Sales Apprentice Performed By: #### C 47, C215, C8, C4891 #### [facility] [address] [place] [address] Urea nitrogen [Mass/Vol] 11 mg/dL Normal 9-23 [facility] Comment on above: Order Comment: Items in this order include: Comprehensive Metabolic Panel, Lipid Panel, Bioplex HIV 1+2 Antigen and Antibodies, w/ Reflexes, CBC with differential, Testing Performed By: [facility] [address] [place] [address] CLIA#:[id number] [address]. Chanell Golden, Sales Apprentice Performed By: #### C 47, C215, C8, C4891 #### [facility] [address] [place] [address] [address] [place] [address] Extra HIVon 12-23-2021 Extra HIV 0.00 Received Normal [facility] Comment on above: Order Comment: Items in this order include: Extra HIV Testing Performed By: [facility] [address] [place] [address] CLIA#:[id number] [address] Chanell Golden, Sales Apprentice Performed By: #### E XTRAHIV #### [facility] [facility] [place] [address] Hepatitis C Ab W/Reflex HCV RNA PCRon 12-23-2021 Hepatitis C Ab Non-Reactive Normal Non-Reactive [facility] Comment on above: Order Comment: Items in this order include: Hepatitis C Ab W/Reflex HCV RNA PCR Testing Performed By: [facility] [address] [place] [address] CLIA#:[id number] [address] Chanell Golden, Sales Apprentice Performed By: #### C 4264 #### [facility] [address] [place] [address] [address] [place] [address] Lipid Panelon 12-23-2021 Cholesterol [Mass/Vol] 167 mg/dL Normal <200 [facility] Comment on above: Result Comment: Low- risk levels (desirable) < 200 mg/dL Moderate-risk levels (borderline) 200 to 239 mg/dL High-risk levels > or = 240 mg/dL Performed By: #### C 47, C215, C8, C4891 #### [facility] [place] [address] Cholesterol in HDL [Mass/Vol] 69 mg/dL Normal >60 [facility] Comment on above: Performed By: #### C 47, C215, C8, C4891 #### [facility] [address] [place] [address] [address] [place] [address] Cholesterol in LDL [Mass/Vol] 86 mg/dL Normal <130 [facility] Comment on above: Performed By: #### C 47, C215, C8, C4891 #### [facility] [address] [place] [address] [address] [place] [address] Cholesterol.total/C holesterol in HDL [Mass ratio] 2.4 {ratio} Normal <4.0 [facility] Comment on above: Performed By: #### C 47, C215, C8, C4891 #### [facility] [address] [place] [address] [address] [place] [address] Non-HDL Chol 98 Normal LDL Goal + 30 [facility] Comment on above: Result Comment: LDL and Non-HDL goal dependent upon individual risk Performed By: #### C 47, C215, C8, C4891 #### [facility] [address] [place] [address] Triglyceride [Mass/Vol] 58 mg/dL Normal <150 [facility] Comment on above: Performed By: #### C 47, C215, C8, C4891 #### [facility] [address] [place] [address] VLDL-Calc 12 mg/dl Normal <30 [facility] Comment on above: Performed By: #### C 47, C215, C8, C4891 #### [facility] [address] [place] [address] Office Visit: est annualon 1 12-17-2016 Documentation of current medications (procedure) Done Invalid Interpretation Code [facility] Fall risk assessment No Invalid Interpretation Code [facility] Hemoglobin presence in stool not done Invalid Interpretation Code [facility] Tobacco smoking status NHIS Never Invalid Interpretation Code [facility] Tobacco use CPHS Never smoker Invalid Interpretation Code [facility] Vital Signs Date Time Vital Sign Value Performing Clinician Faci lity 04-06-2025 16:02-0400 Body height 160 cm Marilee Mejia MD Work Phone: [facility] 04-06-2025 16:02-0400 Body mass index (BMI) [Ratio] 22 kg/m2 Marilee Mejia MD Work Phone: [facility] 04-06-2025 16:02-0400 Body weight 56.34 kg Marilee Mejia MD Work Phone: [facility] 04-06-2025 16:02-0400 Diastolic blood pressure 70 mm[Hg] Marilee Mejia MD Work Phone: [facility] 04-06-2025 16:02-0400 Heart rate 82 /min Marilee Mejia MD Work Phone: [facility] 04-06-2025 16:02-0400 Systolic blood pressure 108 mm[Hg] Marilee Mejia MD Work Phone: [facility] 03-07-2025 09:23-0400 Body height 160 cm Rodney CONSTANTINO Work Phone: [facility] 03-07-2025 09:23-0400 Body mass index (BMI) [Ratio] 22.14 kg/m2 Rodney Rambo HOSPICE ADMINISTRATOR-VERTICA ARCHITECT Work Phone: [facility] 03-07-2025 09:23-0400 Body temperature 98.1 [degF] Rodney Rambo HOSPICE ADMINISTRATOR-VERTICA ARCHITECT Work Phone: [phone] [address] 03-07-2025 09:23-0400 Body weight 56.7 kg Rodney Rambo HOSPICE ADMINISTRATOR-VERTICA ARCHITECT Work Phone: 1(731)[phone] [address] 03-07-2025 09:23-0400 Diastolic blood pressure 69 mm[Hg] Rodney Rambo HOSPICE ADMINISTRATOR-VERTICA ARCHITECT Work Phone: 7([phone])[phone] [address] 03-07-2025 09:23-0400 Heart rate 78 /min Rodney Rambo HOSPICE ADMINISTRATOR-VERTICA ARCHITECT Work Phone: [phone])[phone] [address] 03-07-2025 09:23-0400 Respiratory rate 16 /min Rodney Rambo HOSPICE ADMINISTRATOR-VERTICA ARCHITECT Work Phone: [phone])[phone] [address] 03-07-2025 09:23-0400 SaO2% (BldA) [Mass fraction] 100 % Rodney Rambo HOSPICE ADMINISTRATOR-VERTICA ARCHITECT Work Phone: [phone] [place] [address] 03-07-2025 09:23-0400 Systolic blood pressure 97 mm[Hg] Rodney Rambo HOSPICE ADMINISTRATOR-VERTICA ARCHITECT Work Phone: [facility] 01-15-2025 14:29-0500 Body height 160.[address] Dulgas Welch MD Work Phone: [facility] 01-15-2025 14:29-0500 Body mass index (BMI) [Ratio] 21.9 kg/m2 Dr. Duglas Welch MD Work Phone: [facility] 01-15-2025 14:29-0500 Body weight 56.[address] Duglas Welch MD Work Phone: [facility] 01-15-2025 14:29-0500 Diastolic blood pressure 74 mm[Hg] Dr. Duglas Welch MD Work Phone: [facility] 01-15-2025 14:29-0500 Systolic blood pressure 110 mm[Hg] Dr. Duglas Welch MD Work Phone: [facility] 11-04-2024 08:17-0500 Body height 160 cm Marilee Mejia MD Work Phone: [facility] 11-04-2024 08:17-0500 Body mass index (BMI) [Ratio] 21.43 kg/m2 Marilee Mejia MD Work Phone: [facility] 11-04-2024 08:17-0500 Body weight 54.88 kg Marilee Mejia MD Work Phone: [facility] 11-04-2024 08:17-0500 Diastolic blood pressure 70 mm[Hg] Marilee Mejia MD Work Phone: [phone] [place] [address] 11-04-2024 08:17-0500 Heart rate 70 /min Marilee Mejia MD Work Phone: [facility] 11-04-2024 08:17-0500 SaO2% (BldA) [Mass fraction] 98 % Marilee Mejia MD Work Phone: [facility] 11-04-2024 08:17-0500 Systolic blood pressure 102 mm[Hg] Marilee Mejia MD Work Phone: [facility] 11-28-2022 16:25-0500 Diastolic blood pressure 66 mm[Hg] [facility] [address] [place] [address] 11-28-2022 16:25-0500 Heart rate 73 /min [address] 11-28-2022 16:25-0500 Respiratory rate 13 /min [address] 11-28-2022 16:25-0500 SaO2% (BldA) [Mass fraction] 100 % [place] [address] [address] [employer] 11-28-2022 16:25-0500 Systolic blood pressure 108 mm[Hg] [facility] [employer] 11-28-2022 15:55-0500 Body temperature 98.6 [degF] [facility] 11-28-2022 14:15-0500 Body height 157.[address] [facility] 11-28-2022 14:15-0500 Body mass index (BMI) [Ratio] 22.53 kg/m2 [facility] 01 [facility] 11-28-2022 14:15-0500 Body weight 55.[address] 10-25-2022 17:05-0500 Body height 157.[address] MATERIAL EXPEDITOR Work Phone: [facility] 10-25-2022 17:05-0500 Body mass index (BMI) [Ratio] 21.95 kg/m2 Erin [address] MATERIAL EXPEDITOR Work Phone: [facility] 10-25-2022 17:05-0500 Body temperature 98.29 [degF] Erin [address] MATERIAL EXPEDITOR Work Phone: [facility] 10-25-2022 17:05-0500 Body weight 54.43 kg [address] MATERIAL EXPEDITOR Work Phone: [facility] 10-25-2022 17:05-0500 Diastolic blood pressure 72 mm[Hg] Erin [address] MATERIAL EXPEDITOR Work Phone: [facility] 10-25-2022 17:05-0500 Heart rate 91 /min Erin [address] MATERIAL EXPEDITOR Work Phone: [facility] 10-25-2022 17:05-0500 Respiratory rate 16 /min Erin [address] MATERIAL EXPEDITOR Work Phone: [facility] 10-25-2022 17:05-0500 SaO2% (BldA) [Mass fraction] 99 % Erin Curits-[address] MATERIAL EXPEDITOR Work Phone: [facility] 10-25-2022 17:05-0500 Systolic blood pressure 114 mm[Hg] Erin [address] MATERIAL EXPEDITOR Work Phone: [facility] 10-17-2017 08:25-0500 BMI (Body Mass Index) 21.01 kg/m2 Shelley Whitaker MD [place] [address]-22-2017 08:25-0500 BP Diastolic 69 mm[Hg] Shelley Whitaker MD [facility] 10-17-2017 08:25-0500 BP Systolic 105 mm[Hg] Shelley Whitaker MD [facility] 10-17-2017 08:25-0500 Height 160.02 cm Shelley Whitaker MD [facility] 10-17-2017 08:25-0500 Weight 53.8 kg Shelley Whitaker MD [facility] Encounters Encounter Date Encounter Type Care Provider Facility Start: 08-21-2025 ambulatory Marcia Ron Facility :[facility] Start: 08-15-2025 ambulatory Shelley Caruso lity:[facility] Start: 08-13-2025 ambulatory Isabella Palacio cility:[facility] Start: 08-07-2025 End: 08-07-[address] Shelley Whitaker MD -[facility] Work Phone: Start: 08-07-2025 End: 08-07-[address] Marilee Mejia MD Work Phone: [facility] Start: 04-06-2025 End: 04-06-2025 Office outpatient visit 25 minutes Marilee Mejia MD Work Phone: [facility] Comment on above: Sore throat (Primary Dx); Fever, unspecified fever cause; Vaginal yeast infection; Strep pharyngitis Start: 04-06-2025 End: 04-06-2025 ambulatory MARILEE Mccloud [facility] Start: 03-07-2025 End: 03-07-2025 Patient encounter procedure Rodney Ricks HOSPICE ADMINISTRATOR-VERTICA ARCHITECT Work Phone: [facility] Comment on above: Acute conjunctivitis , unspecified acute conjunctivitis type, unspecified laterality (Primary Dx) Start: 03-07-2025 End: 03-07-2025 ambulatory MARILEE MEJIA [facility] Start: 01-26-2025 End: 01-26-[address] Duglas Welch MD Work Phone: [facility] Work Phone: Start: 01-26-2025 End: 01-26-2025 Patient encounter procedure Rosemary ALEXANDRE -[facility] Work Phone: Start: 01-26-2025 End: 01-26-2025 ambulatory Rosemary Jovel Facility:[facility] Start: 01-15-2025 End: 01-15-2025 Patient encounter procedure oRsemary ALEXANDRE -Laboratory, Specimen Work Phone: Start: 01-15-2025 End: 01-15-2025 Patient encounter procedure Rosemary ALEXANDRE -[facility] Work Phone: Start: 01-15-2025 End: 01-15-2025 Patient encounter status Rosemary ARRINGTONC [facility] Start: 01-15-2025 End: 01-15-2025 ambulatory Duglas Cavazosp Facility:[facility] Start: 01-15-2025 End: 01-15-2025 ambulatory Rosemarynimisha Jovel Facility:[facility] Start: 11-04-2024 End: 11-04-2024 Office outpatient new 45 minutes Marilee Mejia MD Work Phone: [facility] Comment on above: Encounter to [facility] with new doctor (Primary Dx); Family history of breast cancer; Needs flu shot; Ulcerative colitis without complications, unspecified location (Multi) Start: 11-04-2024 End: 11-04-2024 ambulatory MARILEE Mccloud [facility] Start: 10-10-2024 End: 10-10-2024 [facility] Start: 10-03-2024 End: 10-03-2024 ambulatory Duglas Welch Facility:[facility] Start: 05-22-2024 ambulatory HUI GOLDEN [facility] Start: 05-21-2024 End: 05-21-2024 ambulatory HUI GOLDEN [facility] Start: 05-21-2024 End: 05-21-2024 Encounter for general adult medical examination without abnormal findings HUI GOLDEN [facility] Start: 05-01-2024 End: 05-01-2024 ambulatory HUI GOLDEN [facility] Start: 04-30-2024 ambulatory HUI GOLDEN [facility] Start: 10-24-2023 ambulatory HUI Thurston [facility] Start: 04-10-2023 ambulatory BETTY RAY [facility] Start: 11-28-2022 ambulatory LATIA WATSON~[id number] [facility] Start: 11-28-2022 End: 11-28-2022 Evaluation and management of inpatient McSa Proc Rm 01 [facility] Start: 11-28-2022 End: 11-28-2022 Subsequent hospital visit by physician Shirley Jeffery MD Work Phone: [facility] Comment on above: 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; Colitis Start: 10-25-2022 End: 10-25-2022 ambulatory HERLINDA BLOOM [facility] Start: 10-25-2022 End: 10-25-2022 Office outpatient new 30 minutes Erin Pruitt MATERIAL EXPEDITOR Work Phone: [facility] Comment on above: Acute right otitis m edia (Primary Dx); Acute non-recurrent frontal sinusitis; Nasal congestion; Acute cough; Encounter for screening for other viral diseases Start: 10-25-2022 End: 10-25-2022 Patient encounter procedure Erin Pruitt MATERIAL EXPEDITOR Work Phone: [facility] Procedures Date Procedure Procedure Detail Performing Clinician [...] of 2) Zoster Vaccines (1 of 2) [facility] Start: 12-23-2031 DTaP,Tdap,and Td Vaccines (8 - Td or Tdap) DTaP,Tdap,and Td Vaccines (8 - Td or Tdap) [facility] Start: 12-23-2031 DTaP/Tdap/Td Vaccines (8 - Td or Tdap) DTaP/Tdap/Td Vaccines (8 - Td or Tdap) [facility] Start: 11-05-2025 End: 11-05-2025 Patient encounter procedure 11/05/2025 8:00 AM EST Office Visit [address] [phone] Marilee Mejia MD [address] [place] [address] [facility] Start: 07-27-2024 COVID-19 Vaccine ( season) COVID-19 Vaccine ( season) [facility] Start: 11-28-2022 End: 11-28-2022 Patient encounter procedure 11/28/2022 Appointment Gastroenterology Shirley Jeffery [address] [place] [address] [facility] Start: 09-02-2022 COVID-19 Vaccine (4 - Booster for Pfizer series) COVID-19 Vaccine (4 - Booster for Pfizer series) [facility] Start: 07-27-2022 Influenza vaccination Influenza Vaccine (#1) [facility] Start: 06-03-2021 Adolescent depression screening assessment Depression Screening [facility] Start: 06-03-2021 Hepatitis C screening Hepatitis C Screening [facility] Start: 06-03-2021 HIV screening HIV Screening [facility] Start: 06-03-2021 Lipid panel Cholesterol Screening (Lipid Panel) [facility] Start: 06-03-2021 Screening for Chlamydia trachomatis Gonorrhea/Chlamydia Screening [facility] Start: 06-03-2021 Social Influencers of Health Screening Social Influencers of Health Screening [facility] Start: 2019 Screening for malignant neoplasm of cervix [facility] Start: 10-17-2017 End: 10-17-2017 Appointment Appointment [facility] Start: 2016 Diabetes mellitus screening Diabetes Screening [facility] Start: 2004 Pneumococcal Vaccine: Pediatrics (0 to 5 Years) and At-Risk Patients (6 to 64 Years) (1 - PCV) Pneumococcal Vaccine: Pediatrics (0 to 5 Years) and At-Risk Patients (6 to 64 Years) (1 - PCV) [facility] Start: 05-08-2003 Varicella vaccination Varicella Vaccines (2 of 2 - 2-dose childhood series) [facility] Start: 1999 Hepatitis B Surface Antibody Hepatitis B Surface Antibody [facility] Start: 1998 Hepatitis B Vaccines (3 of 3 - 3-dose series) Hepatitis B Vaccines (3 of 3 - 3-dose series) [facility] Start: 1998 Cyanocobalamin vitamin b-12 Vitamin B-12 [facility] Start: 1998 Lipid panel Lipid Panel [facility] Start: 1998 Screening for osteoporosis Bone Density Scan [facility] Start: 1998 TB Test TB Test [facility] Start: 1998 Vitamin D25-OH Vitamin D25-OH [facility] Start: 1998 Yearly Adult Physical Yearly Adult Physical [facility] Immunizations Immunization Date Immunization Notes Care Provider Fa ciliangelita 11-04-2024 Seasonal, trivalent, recombinant, injectable influenza vaccine, preservative free Marilee Mejia MD Work Phone: [facility] Work Phone: 10-21-2021 influenza virus vaccine, unspecified formulation Erin Pruitt NP Work Phone: [facility] 04-07-1999 varicella virus vaccine Arvind Mejia MD Work Phone: [facility] Work Phone: Payers Date Payer Category Payer Self-pay [id number] 2024 Self-pay 2024 Managed Care (Private) [facility] [id number] 2024 Unknown [id number] 2023 Unknown [id number] 2021 Private Health Insurance [employer] Shana RODRIGUEZ [employer] [id number] 2021-Present [address] [place] [address] [id number] 2021 Private Health Insurance [id number] 2000 Unknown [id number] 2.16.840.1.534680.3.579.2. 1143 1998 Unknown [id number] 2.16.840.1.966273.3.579.2. 114 1998 Unknown [id number] 2.16.840.1.466435.3.579.2. 1143 1998 Unknown [id number] 2.16.840.1.366491.3.579.2. 1260 1998 Unknown [id number] 2.16.840.1.142210.3.579.2. 1260 1998 Unknown [id number] 2.840.1.402547.3.579.2. 1260 1998 Unknown [id number] 2.840.1.398306.3.579.2. 1260 1998 Unknown [id number] 2.840.1.388314.3.579.2. 1260 1998 Unknown [id number] 2.840.1.207762.3.579.2. 1260 1998 Unknown [id number] .0.1.936571.3.579.2. 1243 1998 Unknown [id number] 2.0.1.182051.3.579.2. 1244 1998 Unknown [id number] .1.629474.3.579.2. 1244 Medicaid [id number] Unknown [id number] Unknown [id number] 01.11.840.1.979690.3.579.2. 462 Unknown [id number] .1.289902.3.579.2. 462 Unknown [id number] .1.207755.3.579.2. 462 Unknown [id number] .1.944886.3.579.2. 462 Unknown [id number] .1.118697.3.579.2. 462 Unknown [id number] 01.11.840.1.218979.3.579.2. 462 Unknown [id number] 20.1.319340.3.579.2. 462 Unknown [id number] .1.732940.3.579.2. 462 Social History Date Type Detail Facility Start: 10-25-2022 End: 08-07-2025 Tobacco smoking status NHIS Never smoked tobacco [facility] Start: 10-25-2022 End: 11-04-2024 Tobacco use and exposure Smokeless tobacco non-user [facility] Start: 10-25-2022 End: 04-06-2025 Alcohol intake Ex-drinker (finding) [facility] Start: 2000 Sex Assigned At Not on file [facility] Start: 10-15-2022 End: 03-07-2025 Exposure to SARS-CoV-2 (event) Not sure [facility] Start: 11-28-2022 Alcohol intake Current drinke r of alcohol (finding) [facility] Start: 11-24-2022 Alcohol Comment rare occasionally [facility] Start: 11-04-2024 End: 04-06-2025 History of Social function [facility] Work Phone: Start: 11-04-2024 End: 04-06-2025 Tobacco use panel [facility] Work Phone: Start: 11-02-2024 Gender identity Identifies as female gender (finding) [facility] Start: 11-02-2024 Sexual orientation Heterosexual (fin ding) [facility] Work Phone: Start: 02-05-2025 Sex Female (finding) [facility] Start: 2000 [facility]igned [facility] [place]: Highlighted rowStart: ZENIAF History of tobacco use Passive smoker [facility] Work Phone: Clinical Notes 10-25-2022 to 04-06-2025 [...] a mild sore throat and felt achy. [place] poor Sunday night and woke up with [...] Marilee Mejia MD documented in this encounter [facility] Work Phone: 03-07-2025 History of Present illness Narrative [facility] Rodney Ricks APRN-VERTICA ARCHITECT Visit Note - 03/07/2025 9:39 AM This note was generated with voice recognition software and may contain errors including spelling, grammar, syntax, and misrecognization of what was dictated. Patient: Megan Bedolla, , 24 y.o., female PCP: Marilee Mejia MD ---- ALLERGIES: No Known Allergies CURRENT MEDICATIONS: Current Outpatient Medications Medication Instructions xqlyrzxvvo-fng-jglvq-menth-euc 8 % solution Apply small amount on [...] next 24-48 hours, or to ER or product specialist CHUCK for any pain, increasing purulent discharge, changes in vision, photophobia, or other red flags. Patient verbalized understanding and agreed with plan of care; questions were encouraged and answered. VIRA Wolf Advanced Practice Provider [facility] documented in this encounter [facility] Work Phone: 01-26-2025 Radiology Diagnostic study note [facility] Imaging Services [address] [place] [address] [id number] Breast Limited Unilateral MR#: [id number] Acct: [id number] Name: MEGAN BEDOLLA Rep #: [id number] : 2000 F 24 From: Paulino Nunes MD PCP: Dr. Duglas Welch MD Status: REG CL I Study:Breast Limited Unilateral Date of Exam: 01/26/25 Exam# [id number] Ordering Dr: Rosemary Jovel MATERIAL EXPEDITOR-C PROCEDURE: BREAST LIMITED UNILATERAL REASON FOR EXAM: [...] NEGATIVE. RECOMMEND ANNUAL MAMMOGRAPHIC SCREENING. Reading Location: [facility] CC: BALDOMERO Jovel; Dr. Duglas Welch MD ~ Occupational Therapist Assistants: Signed [facility] 01-15-2025 Note [facility] Pap Smear Specimen Adequacy January 16, 2025 12:59am Comment . Satisfactory for evaluation. No endocervical component is identified. Comment on above: Satisfactory for hal luation. No endocervical component is identified. 01-15-2025 Evaluation note Diagnosis Onset Date Resolution Breast pain acute December 2:25pm Encounter for routine gynecological examination noneactive January 15 2:25pm [facility] Work Phone: 1(289) 187-144812-10-2024 Evaluation + Plan note* Assessment & Plan Note - Marilee Mejia MD - 11/04/2024 9:21 AM ESTAssociated Problem(s): Family history of breast cancer - referral to genetics [facility] Work Phone: 1(389) 647-688712-10-2024 Evaluation + Plan note* Assessment & Plan Note - Marilee Mejia MD - 11/04/2024 9:21 AM ESTAssociated Problem(s): Ulcerative colitis without complications (Multi) Chronic, new to provider, stable -continue to follow up with GI [facility] Work Phone: 1(620) 693-306012-10-2024 Miscellaneous Notes* Assessment & Plan Note - Marilee Mejia MD - 11/04/2024 9:21 AM ESTAssociated Problem(s): Family history of breast cancer - referral to genetics * Assessment & Plan Note - aMrilee Mejia MD - 11/04/2024 9:21 AM ESTAssociated Problem(s): Ulcerative colitis without complications (Multi) Chronic, new to provider, stable -continue to follow up with GI [facility]: [phone]) 734-131512-10-2024 History of Present illness Narrative* Marilee Mejia MD - 11/04/2024 8:20 AM EST Subjective: Megan Bedolla is a 24 y.o. 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 She's currently off of medication, mesalamine, since [...] complications (Multi) Overview Follows with GI in [place], [place]. Currently off of medication and stable. [...] time. Marilee Mejia MD documented in this [facility] Work Phone: 1(359) 219-395501-03-2023 Hospital Discharge instructions* Discharge Instructions* Katiuska Zheng RN - 11/28/2022 4:13 PM EST Follow up with your Primary Care Physician and Dr. Shirley Jeffery can be reached at [phone]. Endoscopy Discharge Instructions Your Procedure Was: Colonoscopy [...] not drive or operate machinery (power tools, [employer] mowers, etc.), cook, make business decisions or [...] sent through Care Everywhere. * Colonoscopy: Post-op (Lithuanian) * Ulcerative Colitis (Lithuanian) documented in this encounterInd[facility] [id number] History of Present illness Narrative* Natacha Fernandez RN - 11/28/2022 3:[address] Jeffery, normal findings. Report given to MARY ANN Harp * Natacha Fernandez RN - 11/28/2022 3:36 PM EST Abdominal pressure applied. * Katiuska Zheng RN - 11/28/2022 2:30 PM EST Patient is adequate for discharge from PACU documented in this encounterIndiana Regional Medical [id number] Attending History and physical note* Shirley Jeffery [...] note were not included. Alissa Heredia NP [facility] Hospitalists History and Physical Same Day Surgery Patient Name:Megan Fuentes :2000 Admit Date: Physicians: Herlinda Bloom DO (PCP) Perpetual Assessment: Megan Fuentes is a 22 y.o. female with PMH ulcerative colitis who presented for colonoscopy procedure, per the request of Dr. Jeffery. [facility] has been asked to see the [...] Past Medical History: Diagnosis Date Ulcerative colitis ([facility]) Past Surgical History: Procedure Laterality Date COLON [...] Rate: 77 (11/28 1415) Resp: 16 (11/28 141) BP: 108/70 (11/28 1415) GENERAL: Vitals stable. [...] [] Microbiology [x] Outside Records [] [facility] Phone: 1(153) 273-863701-03-2023 History and physical note* Alissa Heredia NP - 11/28/2022 2:30 PM EST Images from the original note were not included. Alissa Heredia NP [facility] Hospitalists History and Physical Same Day Surgery Patient Name:Megan Fuentes :2000 Admit Date: Physicians: Herlinda Bloom DO (PCP) Perpetual Assessment: Megan Fuentes is a 22 y.o. female with PMH ulcerative colitis who presented for colonoscopy procedure, per the request of Dr. Jeffery. [facility] has been asked to see the [...] Past Medical History: Diagnosis Date Ulcerative colitis ([facility]) Past Surgical History: Procedure Laterality Date COLON [...] Signs: Temp: 36.9 C (98.4 F) (11/28 141) Heart Rate: 77 (11/28 141) Resp: 16 (01/03 1415) BP: 108/70 (11/28 1415) GENERAL: Vitals [...] [] Microbiology [x] Outside Records [] Family [facility] Phone: 1(878) 991-798701-03-2023 History and physical note* Shirley Jeffery MD [...] note were not included. Alissa Heredia NP [facility] Hospitalists History and Physical Same Day Surgery Patient Name:Megan Fuentes :2000 Admit Date: Physicians: Herlinda Bloom DO (PCP) Perpetual Assessment: Megan Fuentes is a 22 y.o. female with PMH ulcerative colitis who presented for colonoscopy procedure, per the request of Dr. Jeffery. [facility] has been asked to see the [...] Past Medical History: Diagnosis Date Ulcerative colitis ([facility]) Past Surgical History: Procedure Laterality Date COLON [...] F) (11/28 1415) Heart Rate: 77 (11/28 141) Resp: 16 (11/28 1414) BP: 108/70 (11/28 1414) GENERAL: Vitals stable. Appears in good mood. [...] note were not included. Alissa Heredia NP [facility] Hospitalists History and Physical Same Day Surgery Patient Name:Megan Fuentes :2000 Admit Date: Physicians: Herlinda Bloom DO (PCP) Perpetual Assessment: Megan Fuentes is a 22 y.o. female with PMH ulcerative colitis who presented for colonoscopy procedure, per the request of Dr. Jeffery. [facility] has been asked to see the [...] Past Medical History: Diagnosis Date Ulcerative colitis ([facility]) Past Surgical History: Procedure Laterality Date COLON [...] Outside Records [] Family documented in this encounterIndiana [facility] Medical [id number] History of Present illness Narrative* Erin Pruitt NP - 10/25/2022 2:20 PM EST Subjective Patient [...] for other viral diseases [facility]+Reason for visit Narrative* Chief Complaint Admit Date PNOB Vitals & Education August 07, 2025 12:51pm [facility] Work Phone: Evaluation note* Diagnosis Acute right otitis media- Primary Acute non-recurrent frontal sinusitis Nasal congestion Other diseases of nasal cavity and sinuses Acute cough Encounter for screening for other viral diseases [facility] encounter [facility]* Diagnosis 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 Colitis Other and unspecified noninfectious gastroenteritis and colitis documented in this encounter [facility] CenterEvalusaint [facility]* Diagnosis Encounter to establish care with new doctor- Primary Family history of breast cancer Family history of malignant neoplasm of breast Needs flu shot Need for prophylactic vaccination and inoculation against influenza Ulcerative colitis without complications, unspecified location (Multi) documented in this encounter [facility] Work Phone: Evaluation note* Diagnosis Encounter to establish care with new doctor- Primary Family history of breast cancer Family history of malignant neoplasm of breast Needs flu shot Need for prophylactic vaccination and inoculation against influenza Ulcerative colitis without complications, unspecified location (Multi) Acute conjunctivitis, unspecified acute conjunctivitis type, unspecified laterality- Primary documented in this encounter [facility] Work Phone: Evaluation note* Diagnosis Encounter to establish care with new doctor- Primary Family history of breast cancer Family history of malignant neoplasm of breast Needs flu shot Need for prophylactic vaccination and inoculation against influenza Ulcerative colitis without complications, unspecified location (Multi) Sore throat- Primary Acute pharyngitis Fever, unspecified fever cause Vaginal yeast infection Candidiasis of vulva and vagina Strep pharyngitis documented in this encounter [facility] Work Phone: Evaluation noteNo assessment information available [facility] Work Phone: Instructions* Attachments The following attachments cannot be sent through Care Everywhere. 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 Procedures COLONOSCOPY Anesthesia - MAC; [facility] Shirley Jeffery MD [address] [place] [address] [facility] Referral ID Status Reason Start Date Expiration Date V isits Requested Visits Authorized [id number] Authorized 10/20/2022 04/18/2023 1 1 Chief Complaint and Reason for Visit Chief Complaint Admit Date 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 DATE CREATED AUTHOR AUTHOR'S ORGANIZ ATION 10/26/2022 [facility] DATE CREATED AUTHOR AUTHOR'S ORGANIZ ATION 11/28/2022 [facility] DATE CREATED AUTHOR AUTHOR'S ORGANIZ ATION 04/11/2023 [facility] DATE CREATED AUTHOR AUTHOR'S ORGANIZ ATION 10/12/2024 [facility] DATE CREATED AUTHOR AUTHOR'S ORGANIZ ATION 03/08/2025 [facility] DATE CREATED AUTHOR AUTHOR'S ORGANIZ ATION 04/07/2025 [facility] DATE CREATED AUTHOR AUTHOR'S ORGANIZ ATION 08/17/2025 [facility] Reason for Visit (unrecogniz ed section and [...] - MAC; [facility] Shirley Jeffery MD [address] [place] [address] [facility] Referral ID Status Reason Start Date Expiration Date V isits Requested Visits Authorized [id number] Authorized 10/20/2022 04/18/2023 1 1 Reason Comments [...] Care Teams (unrecognized sec tion and content) Compensation And Benefits Advisor Relationship Specialty Start Date End Date Herlinda Bloom DO [address] [address] PCP - General Internal Medicine 10/25/22 Compensation And Benefits Advisor Relationship Specialty Start Date End Date Herlinda Bloom DO [address] [facility] [address] [place] [address] PCP - General Internal Medicine 10/25/22 Compensation And Benefits Advisor Relationship Specialty Start Date End Date Marilee Mejia MD [address] [address] PCP - General Family Medicine 10/03/24 Team Status: Active Member Role Status Dates Dr. Marilee Mejia MD Primary Care Provider Active Team Status: Inactive Member Role Status Dates Dr. Duglas Welch MD Primary Care Provider Active Start: January 15, 2025 End: January 15, 2025 Dr. Duglas Welch MD Referring Provider Active S tart: January 15, 2025 End: January 15, 2025 Rosemary Jovel NP-C Attending Provider Active Start: January 15, 2025 [...] January 26, 2025 End: January 26, 2025 Compensation And Benefits Advisor Relationship Specialty Start Date End Date Marilee Mejia MD [address] [address] PCP - General Family Medicine 10/03/24 Marilee Mejia MD [address] [address] PCP - MMO ACO PCP 12/27/24 Compensation And Benefits Advisor Relationship Specialty Start Date End Date Marilee Mejia MD [address] [address] PCP - General Family Medicine 10/03/24 Marilee Mejia MD [address] [address] PCP - MMO ACO PCP 12/27/24 Team [...] BE BASED ON THE PRIMARY CLINICAL RECORDS. [facility]. provides no warranty or guarantee of the accuracy or completeness of information in this document.
[2025-08-24 21:07] LABS: Chlamydia By Nucleic Acid AMP Negative (Negative); Gonococcus By Nucleic Acid AMP Negative (Negative)
== END | disposition home or self-care (01) ==
LOC: LABSPEC 16:08
PROVIDERS: PCP Family Medicine; Visit Provider Obstetrics & Gynecology
DX: O09.90 Supervision of high risk pregnancy, unspecified, unspecified trimester (principal); Z3A.00 Weeks of gestation of pregnancy not specified
CPT/HCPCS: 87491; 87591

== ENCOUNTER → 2025-09-04 | Outpatient (CLI) | payer OTHER, SELFPAY ==
--- NOTE | 2025-09-04 09:27 | US_ITS ---
PROCEDURE: TRANSVAGINAL W/PREG US 09/04/2025 REASON FOR EXAM: SPOTTING IN EARLY TECHNIQUE: Procedure Code: [id number] Modality: US Procedure: TRANSVAGINAL W/PREG US FINDINGS: Comments: Uterus is anteverted. Trace fluid in the endocervical canal. Number of Gestational Sacs: 1 Gestational Sac Shape: Normal Number of Fetuses: 1 Heart Rate: 164 (average) Survey of Visible Anatomic Structures: Grossly unremarkable for gestational age. Yolk Sac: Present and unremarkable. Placenta: Mainly posterior and fundal. The caudal extent is seen towards the endocervical os suggesting previa in this early gestation. Amniotic Fluid Volume: Subjectively normal for gestational age. Uterine Abnormalities: Maternal uterus is unremarkable. Ovaries / Adnexa: Both maternal ovaries are visualized and unremarkable. DIMENSIONS: Parameter Measurement / EGA [place] Rump Length: 49 mm/11 weeks, 4 days ESTIMATED GESTATIONAL AGE: By Ultrasound: March 22, 2026 By LMP: 10 weeks, 5 days ESTIMATED DATE OF DELIVERY: By Ultrasound: By LMP: March 28, 2026 Note: The calc package dating reported on the images represents an average. Dating is established with a quality crown-rump length. JAREN is calculated from that data point rather than the average. US/Transvaginal w/Preg US IMPRESSION: Single live intrauterine . 11 weeks, 4 days by crown-rump length. ED D March 22, 2026. Early development of the placenta. The placenta is seen overlying the endocervical os. Continued close follow-up suggested. No hemorrhage is seen. Trace fluid in the endocervical canal. Reading Location: [id number]
== END | disposition home or self-care (01) ==
PROVIDERS: PCP Family Medicine; Referring Provider Obstetrics & Gynecology; Visit Provider Obstetrics & Gynecology
DX: O26.851 Spotting complicating pregnancy, first trimester (principal); Z3A.11 11 weeks gestation of pregnancy
CPT/HCPCS: 76817